=== PATIENT | male | born 1940 | race Caucasian/White ===

== ENCOUNTER 2025-04-20 19:02 | Inpatient (IN) | payer MEDICARE, OTHER, SELFPAY ==
[2025-04-20 14:51] VITALS: BMI 25.0
[2025-04-20 14:56] VITALS: BP 137/84
[2025-04-20 15:20] LABS: % Basophils 0.7 % (0-2); % Immature Granulocytes 0.4 % (0-0.5); % Lymphocytes 33.4 % (20.5-51.1); % Monocytes 9.6 % (1.7-9.3); % Neutrophils 50.9 % (42.2-75.2); Absolute Basophils 0.1 10^3/uL (0-0.2); Absolute Eosinophils 0.5 10^3/uL (0-0.7); Absolute Lymphocytes 3.6 10^3/uL (1.2-3.4); Absolute Neutrophils 5.5 10^3/uL (1.4-6.5); Hematocrit 40.9 % (39.0-52.0); Hemoglobin 13.8 g/dL (13.0-18.0); Mean Corp Hgb Conc. 33.7 g/dL (33.0-37.0); Mean Corpuscular Hgb 31.4 pg (27.0-31.0); Mean Corpuscular Volume 93.2 fL (80.0-94.0); Mean Platelet Volume 10.7 fL (7.4-10.4); Nucleated Red Blood Cells % 0 % (-); Platelet Count 263 10^3/uL (130-400); Red Blood Cell Count 4.39 10^6/uL (4.70-6.10); White Blood Cell Count 10.8 10^3/uL (4.8-10.8)
[2025-04-20 15:35] LABS: ALT (SGPT) 15 U/L (0-50); AST (SGOT) 18 U/L (17-59); Albumin 4.6 g/dl (3.5-5.0); Alkaline Phosphatase 89 U/L (38-126); Blood Urea Nitrogen 32 mg/dl (9-20); Calcium 9.8 mg/dl (8.4-10.2); Carbon Dioxide 21 mmol/L (22-30); Chloride 108 mmol/L (98-107); Glucose 91 mg/dl (70-99); Potassium 4.5 mmol/L (3.5-5.1); Sodium 137 mmol/L (135-145); Total Bilirubin 0.7 mg/dl (0.2-1.3); Total Protein 7.1 g/dl (6.3-8.2); eGFR 28.99
--- NOTE | 2025-04-20 17:32 | W.PN.UPDATE ---
Update Note
Progress Note Update
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
Plan:
-Admit to hospitalist
-Heparin gtt with bolus
-Vein mapping (ordered)
-CTA with runoff (ordered)
-Planning for bypass later this week if targets can be identified
[2025-04-20 17:52] VITALS: BP 143/106
[2025-04-20 18:00] VITALS: BP 134/103
--- NOTE | 2025-04-20 18:08 | ED.GENMED ---
History of Present Illness
General
Chief Complaint: Vascular Symptoms
Source: patient
Exam Limitations: none
Time Seen by Provider: 04/20/25 17:10
Nursing documentation reviewed up to this point in time: agreed with
History of Present Illness
History of Present Illness:
The patient is an 85 year old male who presents to the emergency department with paresthesias of his right foot. These symptoms started approximately three months ago and has remained consistently present.
He denies experiencing pain in the leg but notes the numbness becomes more noticeable after prolonged activity. He occasionally feels that his right foot feels cooler. He does not seem to notice the paresthesias as much at night or when his feet
are elevated.
He states that the sensation began after the patient was lifting his in a wheelchair up a curb, forgoing a ramp-however is unsure if this is related.
Patient was seen by Dr. Cole many years ago and had an EVAR of a known right popliteal artery aneurysm. However�he had not followed up recently as he was caring for his ill .
Patient was seen by Dr. Cole last week where he had numerous testing performed. He was referred to the emergency department today for admission given concerns of a thrombosed right popliteal artery aneurysm.
Patient denies any fevers, chills, chest pain, shortness of breath.
Review of Systems
Review of Systems
Allergies reviewed?: Yes
All Other Systems: ROS reviewed and negative except as documented in HPI and ROS
Phy Exam
Physical Exam
Physical Exam:
Vitals: Patient's vital signs are stable. Afebrile
General: Patient is well appearing, no acute distress
Skin: Warm and dry, no rashes or lesions
Head: Normocephalic, atraumatic
Eyes: Sclera nonicteric. EOMs intact. No nystagmus.
Throat: Protecting airway
Neck: Normal ROM, no cervical spine tenderness, no meningismus
Cardiac: Regular rate and rhythm, no murmurs.
Pulm: Normal respiratory effort. Lungs clear bilaterally
.
Abdomen: No abdominal tenderness.
Extremities: No cyanosis or edema of bilateral lower extremities. Palpable right femoral pulse, right DP pulse dopplerable (unable to palpate); palpable left DP and PT pulse; normal sensation in bilateral lower extremities, strength grossly intact
bilaterally
Neuro: AAOx3. Grossly intact.
Psychiatric: Normal affect.
Course
Orders/Labs/Results
Orders:
Orders
04/20/25 Dinner
Cholesterol Lowering
Cholesterol Lowering: Sodium, 2 Gram
04/20/25 15:06
CHEM 20 [Comprehensive Metabolic Panel] Urgent
Complete Blood Count/With Diff Urgent
04/20/25 18:15
Heparin 4,000 units IV NOW STA
Nursing to Place Non Medication Order As Directed
Physician Order: PTT 6 hours after initial start of Heparin infusion
04/20/25 18:39
Admit/Transfer Patient As Directed
Co-Sign Provider:
Level of Care: Inpatient admission
Assign to:: Medical/Surgical
Physician / Group: [facility]
Diagnosis: R popliteal artery thrombosis
Reason for Hospitalization: R popliteal artery aneurysm thrombosis
Expected length of stay greater than two midnights?: Yes
ELOS- Estimated Length of Stay in days: 2
I certify the patient meets the requirements for IP care: Yes
04/20/25 18:40
PRN Pain Medication Management As Directed
May give lesser potent ordered pain med per pt: Yes
preference::
Protocol:: Medication orders for pain may be administered in a
manner that supports deferring to patient preference
when the pt is:
- Requesting an ordered lesser potent pain medication.
Least to most potent pain medications are defined
as: acetaminophen < NSAID < tramadol < opioids
(morphine, oxycodone, hydromorphone).
- Requesting a lesser dose of the same medication IF
ORDERED.
- Requesting a less intrusive route of administration
if both routes are prescribed by the provider (PO <
IV).
04/20/25 18:41
Code Status As Directed
Resuscitation Status: Full Code
PTT Urgent
Comment: Obtain baseline before beginning heparin infusion if not already collected
04/20/25 18:45
0.9% Sodium Chloride 1000 ml [Nss] 1,000 ml IV 125 mls/hr
04/20/25 19:00
Heparin 25505 Units/250 ml 25,000 units in 250 ml .ROUTE .STK-MED
04/20/25 19:15
Heparin 20198 Units/250 ml 25,000 units in 250 ml IV PER PROTOCOL
Weight to be used for heparin protocol in kilograms (kg):: 70.7462367
Protocol:: Vascular Surgery
PTT Goal Range to be used:: PTT 73 to 111 seconds
Order type:: Initial
INITIAL Infusion Dose (UNITS/KG/hr) & then follow protocol:: 18 units/kg/hr
Infusion Dose in UNITS/hr & then follow protocol (UNITS/hr):: 1,300
INFUSION RATE in mL/hr & then follow protocol (mL/hr):: 13
PTT less than or equal to 64 seconds:: Notify Ordering Provider. obtain orders for rate increase &
possible bolus
PTT 64.1 to 72.9 seconds:: Increase rate by 100 units/hr (+ 1 mL/hr)
PTT 73 to 111 seconds:: Target Range. No change in rate.
PTT 111.1 to 130.9 seconds:: Decrease rate by 100 units/hr (- 1 mL/hr)
PTT 131 to 199.9 seconds:: HOLD for 1 hour. Then decrease rate by 200 units/hr (- 2 mL/hr)
PTT greater than or equal to 200 seconds:: STOP INFUSION. Notify Ordering provider to obtain further orders.
Lab follow-up:: Each change, PTT q6h until 2 consecutive are therapeutic. Then PTT
daily.
04/20/25 20:06
0.9% Sodium Chloride 1000 ml [Nss] 1,000 ml IV 125 mls/hr
Acetaminophen [Tylenol] 1,000 mg PO Q6HPRN PRN mild pain
Bisacodyl [Dulcolax] 10 mg RECTAL [id number] PRN
Docusate W/Senna [Senokot-S] 1 tablet PO BIDPRN PRN
Ondansetron Injectable [Zofran] 4 mg IV Q6HPRN PRN
Oxycodone [Roxicodone] 5 mg PO Q4HPRN PRN
Polyethylene Glycol Powder [Miralax] 17 grams PO DAILYPRN PRN
colestipol See Dose Instructions PO BID
04/20/25 20:06
Vascular Surgery Consult Routine
Consulting Provider: Hany Cole III
Was physician already notified: Yes
VTE Contraindication Routine
VTE Mechanical Device Contraindication: Medical Contraindication
Pharmocologic Contraindication: Medical Contraindication
Heparin Protocol- PTT Orders As Directed
PTT per Heparin protocol: -Obtain CBC and baseline PTT - if not already collected.
-Obtain PTT 6 hours from start of infusion. Then, every 6 hours until 2 consecutive
PTT's are therapeutic. Then, PTT Daily.
-With each rate change, obtain PTT every 6 hours until 2 consecutive PTT's are
therapeutic. Then, PTT Daily.
Activity As Directed
Activity Level: With Assistance
Medical Records Request [Obtain Records] As Directed
Dates of Information to be Released: Nov 12 2024 to April 12 2025
Type of Information Requested: Last Office Visit H&P
Lab Results
Obtain Records from: Dr. Ramon Melendez
Notify MD As Directed
Notify physician if: PTT is greater than or equal to 200.
Vascular Checks As Directed
Location: R lower extremity
Frequency: q8h
Vital Signs As Directed
Frequency: Per unit guidelines
Pulse Ox/spot Check [RESP] Routine
Quantity: 1
04/20/25 22:00
Aspirin Low Dose EC [Aspir Low (Enteric Coated)] 81 mg PO HS
04/21/25 06:00
Basic Metabolic Panel IN AM
Creatine Phosphokinase IN AM
Magnesium IN AM
US Vascular Mapping Bilateral IN AM
Comment:
Reason For Exam: requires bypass
04/21/25 08:00
Atenolol [Tenormin] 25 mg PO DAILY
Losartan [Cozaar] 50 mg PO DAILY
omega 6-alw-vgp-fish oil [Fish Oil] 1 cap PO DAILY
04/21/25 12:00
CT Abd Aorta Angio W/ Run Off Urgent
Reason For Exam: thrombosed pop artery
Pantoprazole [Protonix] 40 mg PO NOON
04/22/25 06:00
Complete Blood Count/No Diff Q2D
Comment: notify provider: Platelet count < 130,000 or decrease by 50% from baseline
04/24/25 06:00
Complete Blood Count/No Diff Q2D
Comment: notify provider: Platelet count < 130,000 or decrease by 50% from baseline
04/26/25 06:00
Complete Blood Count/No Diff Q2D
Comment: notify provider: Platelet count < 130,000 or decrease by 50% from baseline
04/28/25 06:00
Complete Blood Count/No Diff Q2D
Comment: notify provider: Platelet count < 130,000 or decrease by 50% from baseline
04/30/25 06:00
Complete Blood Count/No Diff Q2D
Comment: notify provider: Platelet count < 130,000 or decrease by 50% from baseline
05/02/25 06:00
Complete Blood Count/No Diff Q2D
Comment: notify provider: Platelet count < 130,000 or decrease by 50% from baseline
05/04/25 06:00
Complete Blood Count/No Diff Q2D
Comment: notify provider: Platelet count < 130,000 or decrease by 50% from baseline
05/06/25 06:00
Complete Blood Count/No Diff Q2D
Comment: notify provider: Platelet count < 130,000 or decrease by 50% from baseline
Abnormal Lab Results
04/20/25
15:06
RBC 4.39 L 10^6/uL
(4.70-6.10)
MCH 31.4 H pg
(27.0-31.0)
MPV 10.7 H fL
(7.4-10.4)
Absolute Lymphs (auto) 3.6 H 10^3/uL
(1.2-3.4)
Absolute Monos (auto) 1.0 H 10^3/uL
(0.1-0.6)
Monocytes % 9.6 H %
(1.7-9.3)
Chloride 108 H mmol/L
(98-107)
Carbon Dioxide 21 L mmol/L
(22-30)
BUN 32 H mg/dl
(9-20)
Creatinine 2.2 H mg/dL
(0.7-1.3)
04/20/25 15:06
04/20/25 15:06
Vital Signs
Initial and Last Documented VS:
Initial Vital Signs
Temp Pulse Resp BP Pulse Ox
98.2 F 57 16 137/84 98
04/20/25 14:56 04/20/25 14:56 04/20/25 14:56 04/20/25 14:56 04/20/25 14:56
Last Documented Vital Signs
Temp Pulse Resp BP Pulse Ox
97.8 F 47 20 146/77 96
04/20/25 23:37 04/20/25 23:37 04/20/25 23:37 04/20/25 23:37 04/20/25 23:37
MDM/Problems Addressed
Differential Diagnosis Includes:
Not limited to: Peripheral arterial disease, venous insufficiency, peripheral neuropathy, lumbar radiculopathy, etc.
MDM/Problems Addressed:
85 year-old male with history as documented notable for known PAD and R popliteal aneurysm s/p EVAR in 2022 presenting with claudication symptoms of right foot ongoing over the past few months. He describes paresthesias in his right foot worse with
activity and associated w/ mild pain. Referred from vascular surgery with concerns of thrombosed R popliteal artery aneurysm. Vitals and physical exam as above.
Patient has palpable left DP pulse and dopplerable right DP pulse (unable to palpate). Sensation intact in b/l lower extremities with normal strength.
Labs sent in triage prior to my evaluation without any clinically significant abnormalities on CBC. CMP reveals renal insufficiency with creatinine of 2.2 and GFR of 28.99. While initial plan was for CTA w/ runoff of b/l lower extremities � given
decrease in kidney function will plan to hold CTA tonight after discussion w/ vascular surgery, Dr. Cole.
Heparin initiated in ED. Patient will be admitted to hospital service with plan for hydration, repeat labs, nephro consult in the morning with hopes to pursue CTA to plan for possible bypass later this week/further management by vascular surgery.
Patient accepted to hospitalist service in stable condition.
Chronic conditions affecting care:
Right popliteal aneurysm, PAD, renal insufficiency
Acute Exacerbation and/or Progression of Chronic Illness:
Thrombosed right popliteal aneurysm, acute on chronic renal insufficiency
*Pulse Oximetry
Patient hypoxic: no
*EKG
Interpreted by ED Provider?: NA
*Clothing Consultant Interpretation
Rate: Clothing Consultant- N/A
*Critical Care Note
Total Time (30-74mins, 75-104mins- exclusive of procedures): 32
comment:
I have spent 32 minutes of critical care time, including but not limited to management of unstable vitals signs, discussion with consultants, discussion with pharmacy, etc. This time is exclusive of any spent on procedures, in evaluation and
management of this critically ill patient�s condition of limb ischemia secondary to a thrombosed right popliteal artery aneurysm. Patient started on an IV heparin drip in ED
Data Reviewed
Review of Other/Old Records Reveals: Operative Reports (EVAR from 09/11/[address] SANTOS)
Patient Management
Discussion with other providers: Hospitalist and Mirror Maker (Case discussed with vascular surgery)
Escalation/DeEscalation of care consider admission/obs:
Admit indicated
ED Attending Note
-
Portions of this chart may have been created with voice recognition software.� Occasional wrong word or��sound alike� substitutions may have occurred due to the inherent limitations of voice recognition software.
Discharge Plan
Departure
Patient Disposition: Admit
Date of Disposition: 04/20/25
Time of Disposition: 18:17
Presentation/result/management discussed w/ accepting MD/DO: Hospitalist
Discharge Problem:
Arterial obstruction due to thromboembolism from aneurysm of popliteal artery, GLORIA (acute kidney injury), PAD (peripheral artery disease)
Interventions
Interventions:
*Risk Screen - Suicide Last Done: 04/20/25 20:37
*General Assessment Last Done: 04/20/25 19:58
*Neglect/Abuse Screening Last Done: 04/20/25 14:56
*ED- Fall Risk Assessment Last Done: 04/20/25 19:58
*ED COVID-19 Vaccine History Last Done: 04/20/25 20:37
*Nursing Disposition Last Done: 04/20/25 19:58
ED- Cardiac Assessment Last Done: 04/20/25 19:39
ED- Pulmonary Assessment Last Done: 04/20/25 19:39
ED-Peripheral Vascular Assessment Last Done: 04/20/25 19:39
ED-Skin Assessment Last Done: 04/20/25 19:39
Discharge Date and Time
Discharge Date/Time: 04/20/25 20:01
--- NOTE | 2025-04-20 18:31 | HPS.HSE ---
Family Physician
-
Family Physician: Ramon Melendez
Chief Complaint
-
Claudication
History of Present Illness
This is a 85-year-old male with past medical history significant for hypertension, hyperlipidemia, AAA, history of non-Hodgkin's lymphoma and prostate cancer, peripheral artery disease status post EVAR and known popliteal aneurysm with previous
recommended repair on the right presents from vascular clinic with thrombosed right popliteal artery aneurysm.
It is thought that this happened about 2 to 3 months ago she began having symptoms in his right foot at that time. He is having critical limb ischemia symptoms in his right foot at this time. It was recommended that he be brought to the emergency
department for expedited workup and treatment.
Reports intermittent numbness/tingling. Denies pain.
In the emergency department he was afebrile, blood pressure was 137/84 with a pulse of 57 satting 98% on room air.
CBC was unremarkable with hemoglobin 15.8 and a platelet count of 263.
Electrolytes were all stable. BUN/creatinine were elevated at 32 and 2.2 respectively. Unknown recent baseline platelet. 1.3 in 2022.
Medical History
Past Medical History
Past Medical History: Reports Other
Additional Past Medical History:
Prostate cancer
Hypertension
Hyperlipidemia
AAA
Non-Hodgkin's lymphoma
Past Surgical History: Reports Other
Additional Past Surgical History:
Splenectomy
Vasectomy
Herniorrhaphy
EVAR
HRS, aorta surgery
Biopsy of AAA
Social History
Tobacco: Non-smoker
Alcohol: Former
Drug: None
Personal:
Living: With Family
Employment: Retired
Family History
Family History: Not pertinent
Allergies / Home Medications
Allergies reflects when Allergies were last updated in [facility].
Home Medications with original date entered in [employer]
Allergy/Medication List:
Allergies
Allergy/AdvReac Type Severity Reaction Status Date / Time
No Known Allergies Allergy Verified 04/20/25 14:58
Home Medications
colestipol 1 gram tablet 1 g PO BID High Cholesterol 07/03/23
losartan 50 mg tablet 50 mg PO DAILY Blood Pressure 07/03/23
omeprazole 20 mg tablet,delayed release 20 mg PO NOON Gastrointestinal Issue 07/03/23
zinc-magnesium aspart-vit B6 10 mg-150 mg-3.83 mg capsule 1 cap PO DAILY Supplement 07/03/23
omega 1-qcq-zta-fish oil 1,200 mg (144 mg-216 mg) capsule (Fish Oil) 1 cap PO DAILY Supplement ##0 09/06/23
acetaminophen 500 mg tablet 1,000 mg PO Q6HPRN PRN mild pain 09/11/23
aspirin 81 mg tablet,delayed release 81 mg PO HS 04/20/25
atenolol 25 mg tablet 25 mg PO DAILY 04/20/25
Review of Systems
-
Constitutional: Reports No Symptoms
EENT: Reports No Symptoms
Respiratory: Reports No Symptoms
Cardiac: Reports No Symptoms
Abdomen/GI: Reports No Symptoms
: Reports No Symptoms
Musculoskeletal: Reports No Symptoms
Skin: Reports No Symptoms
Neurological: Reports No Symptoms
Endocrine: Reports No Symptoms
Hematologic/Lymphatic: Reports No Symptoms
Psych: Reports No Symptoms
Physical Exam
Vital Signs
Vital Signs
Temp Pulse Resp BP Pulse Ox
98.2 F 57 16 137/84 98
04/20/25 14:56 04/20/25 14:56 04/20/25 14:56 04/20/25 14:56 04/20/25 14:56
Physical Exam
General: No Apparent Distress
HEENT: NormoCephalic, Moist mucous membranes and Atraumatic
Respiratory: Clear
Cardiac: S1/S2 and Regular Rhythm; No Murmur or Rub
GI: Soft, Non Tender, Non Distended and Normal Bowel Sounds; No Organomegaly
Rectal: Deferred by Provider
Genito-urinary: Deferred by me
Musculoskeletal: No Clubbing, No Cyanosis, No Edema and Other (palpable thrombosed popliteal aneurysm on the right, foot with nonpalpable pedal pulses but dopplable.)
Skin: No Rash
Neuro: Nonfocal/grossly intact
Laboratory Results
-
04/20/25 15:06
04/20/25 15:06
Laboratory Results
Total Bilirubin 0.7 mg/dl (0.2-1.3) 04/20/25 15:06
AST 18 U/L (17-59) 04/20/25 15:06
ALT 15 U/L (0-50) 04/20/25 15:06
Alkaline Phosphatase 89 U/L (38-126) 04/20/25 15:06
Data Reviewed
-
Lab Data: Labs Reviewed by me
Old Records: Reviewed
Impression/Plan
-
IMPRESSION:
85-year-old with history of peripheral arterial disease, AAA s/p repair history of popliteal aneurysm who comes in with thrombosed right popliteal aneurysm with distal ischemia. Denies pain, reports intermittent numbness tingling. He has a mild
elevation in creatinine to 2.2 unknown recent baseline but prior baseline was around 1.3. Plan is to admit, optimize renal function, obtain a CT angio after optimization of renal function and follow-up treatment plan vascular surgery.
PLAN:
Thrombosed popliteal artery
-Admit to MedSurg
-Initiate heparin drip
-continue aspirin 81
-regular diet till midnght, clear liquids afterwards and NPO [address] scan (tentatively tomorrow noon)
-IV fluids
-Vascular consult
Renal dysfunction -GLORIA/CKD. Hx of CKD, reportedly had been followed by Renal in the past but maintained GFR of around 50 ml/min. Now 30.
- Obtain recent BUN/creatinine labs for Dr. Melendez
- -IV normal saline at 100 cc/h
- do not hold losartan
- Avoid NSAIDS
- do not give contrast until DOMINIC PPX complete and nephrology consultation; at least NS at 1ml/kg for 12 hours prior to procedure and continue for 6- 12 hours after procedure
- nephrology consult
DVT prophylaxis�on heparin gtt
CODE STATUS�full code
[2025-04-20 18:59] LABS: APTT 25.2 Sec (23.4-35.0)
[2025-04-20 19:00] VITALS: BP 139/95
[2025-04-20] MEDS: HEPARIN 4000 UNITS IV (19:05)
[2025-04-20] MEDS: HEPARIN 25000 UNITS/250 ML IV (19:06)
[2025-04-20] MEDS: NSS 1000 IV ×2 (19:12→20:28)
[2025-04-20 20:20] VITALS: BP 118/96; BMI 25.0
--- NOTE | 2025-04-20 20:30 | PTCARENOTE ---
Patient arrived from ED via stretcher, patient ambulatory to bed. Patient aaox3, able to make needs known.
[2025-04-20] MEDS: ASPIR LOW (ENTERIC COATED) 81 MG PO (21:14)
[2025-04-20 23:37] VITALS: BP 146/77
[2025-04-21 02:37] LABS: APTT > 200 Sec (23.4-35.0)
[2025-04-21 07:44] VITALS: BP 182/90
[2025-04-21] MEDS: COZAAR 50 MG PO (08:01)
[2025-04-21] MEDS: TENORMIN 25 MG PO (08:01)
[2025-04-21 08:08] LABS: Blood Urea Nitrogen 32 mg/dl (9-20); Calcium 9.4 mg/dl (8.4-10.2); Carbon Dioxide 20 mmol/L (22-30); Chloride 112 mmol/L (98-107); Creatine Phosphokinase 146 U/L (55-170); Estimated Creatinine Clearance 27 ml/min; Glucose 87 mg/dl (70-99); Magnesium 2.1 mg/dl (1.6-2.3); Potassium 4.5 mmol/L (3.5-5.1); Sodium 139 mmol/L (135-145); eGFR 34.57
[2025-04-21 11:19] VITALS: BP 122/77
--- NOTE | 2025-04-21 11:27 | W.PN.UPDATE ---
Update Note
Progress Note Update
Patient with scant improvement in creatinine from 2.2 yesterday to 1.9 this a.m., will hold off additional day from obtaining CT angio aorta with runoff, plan to obtain imaging tomorrow (04/22/2025) as long as creatinine continues to either improve
or stabilize. Earliest plan for surgical intervention for revascularization would be Sunday (04/24/25), cannot determine official surgical plan without CT imaging. Updated patient at bedside with plan for CT scan tomorrow with possible surgical
intervention on Sunday, patient verbalized understanding.
[2025-04-21 11:37] LABS: APTT 139.7 Sec (23.4-35.0)
[2025-04-21] MEDS: PROTONIX 40 MG PO (12:54)
[2025-04-21] MEDS: LR 1000 IV ×2 (12:55→22:45)
--- NOTE | 2025-04-21 15:13 | CM ---
Patient seen bedside w/ grandson and another family member. Initial assessment completed. Patient is a 85-year-old male with past medical history significant for hypertension, hyperlipidemia, AAA, history of non-Hodgkin's lymphoma and prostate
cancer, peripheral artery disease status post EVAR and known popliteal aneurysm. Presenting for claudication.
Patient resides w/ daughter and grandson in a 2STH, 1 step to enter. Patient is independent w/ ambulation and ADLs. Grab bar in the bathroom. Denies SNF/HC hx.
Address, point of contact and insurance verified
PCP: Ramon Melendez
Pharmacy: [facility]. Patient uses [facility] for mail orders
Plan: Anticipate home no needs
--- NOTE | 2025-04-21 15:26 | W.PN.HOSP.TC ---
Today's Communication/Plan
-
Continue heparin GTT
Continue IV fluids
CT angiogram tomorrow.
Assessment / Plan
Assessment / Plan
Impression
85-year-old male admitted for management of thrombosed right popliteal artery.
Plan
#Peripheral arterial disease
Thrombosed right popliteal artery
Continue heparin drip
Continue aspirin
N.p.o. [address] scan
Hold off additional day for CT imaging for his renal function to stabilize.
Vascular surgery on board
Possible surgical intervention on fter CT imaging
#GLORIA on CKD�stage IIIa
Continue IV fluids
Hold losartan
Monitor BMP
#Hypertension
Continue atenolol
Hold losartan
#DVT prophylaxis�heparin GTT
Regular diet
Full code
Anticipated Discharge: > 48 hours
Subjective/Interval History
-
Date of Service: April 21, 2025
Patient reports having tingling and numbness in the right lower extremity.
Objective Data
-
Labs:
Laboratory Results
04/21/25 04/21/25 04/21/25
07:21 10:57 18:30
APTT 139.7 H Pending
Sodium 139
Potassium 4.5
Chloride 112 H
Carbon Dioxide 20 L
BUN 32 H
Creatinine 1.9 H
Glucose 87
Calcium 9.4
Vital Signs:
Vital Signs
Temp Pulse Resp BP Pulse Ox
98.2 F 53 18 122/77 98
04/21/25 11:19 04/21/25 11:19 04/21/25 11:19 04/21/25 11:19 04/21/25 11:19
I&O
04/20/25 04/21/25 04/22/25
06:59 06:59 06:59
Output Total 775 / 775
Balance -775 / -775
Physical Exam
-
General: Well Developed and Well Nourished
HEENT: Normocephalic and Atraumatic
Respiratory: Clear to Auscultation
Cardiac: Regular Rhythm, S1/S2 and Other (Nonpalpable right dorsalis pedis pulse, feeble on portable Doppler)
GI: Soft, Nontender, Nondistended and Normal Bowel Sounds
Skin: Warm and Dry
Neuro: Awake, Alert, Oriented, AO x 3 and Nonfocal/Grossly Intact
Psych: Calm
[2025-04-21 15:34] VITALS: BP 140/80
[2025-04-21 19:07] LABS: APTT 82.3 Sec (23.4-35.0)
[2025-04-21] MEDS: HEPARIN 25000 UNITS/250 ML IV (19:43)
[2025-04-21] MEDS: ASPIR LOW (ENTERIC COATED) 81 MG PO (21:29)
[2025-04-21 23:23] VITALS: BP 163/82
[2025-04-22 02:34] LABS: APTT 90.3 Sec (23.4-35.0)
[2025-04-22 07:19] LABS: Hematocrit 38.1 % (39.0-52.0); Hemoglobin 13.4 g/dL (13.0-18.0); Mean Corp Hgb Conc. 35.2 g/dL (33.0-37.0); Mean Corpuscular Hgb 32.4 pg (27.0-31.0); Mean Corpuscular Volume 92.3 fL (80.0-94.0); Mean Platelet Volume 11.7 fL (7.4-10.4); Platelet Count 257 10^3/uL (130-400); Red Blood Cell Count 4.13 10^6/uL (4.70-6.10); Red Cell Dist. Width 14.1 % (11.5-14.5); White Blood Cell Count 7.7 10^3/uL (4.8-10.8)
[2025-04-22 07:46] VITALS: BP 128/83
[2025-04-22 08:01] LABS: ALT (SGPT) 13 U/L (0-50); AST (SGOT) 17 U/L (17-59); Albumin 3.8 g/dl (3.5-5.0); Alkaline Phosphatase 80 U/L (38-126); Blood Urea Nitrogen 31 mg/dl (9-20); Calcium 9.7 mg/dl (8.4-10.2); Carbon Dioxide 19 mmol/L (22-30); Chloride 111 mmol/L (98-107); Estimated Creatinine Clearance 25 ml/min; Glucose 84 mg/dl (70-99); Potassium 4.3 mmol/L (3.5-5.1); Sodium 137 mmol/L (135-145); Total Bilirubin 0.6 mg/dl (0.2-1.3); Total Protein 6.1 g/dl (6.3-8.2); eGFR 32.51
[2025-04-22] MEDS: LR IV (08:54)
[2025-04-22] MEDS: NSS 500 IV ×2 (08:54→11:28)
[2025-04-22] MEDS: TENORMIN 25 MG PO (08:55)
--- NOTE | 2025-04-22 10:58 | CM ---
Patient seen at bedside on . Patient stated that his had on March 23 and was tearful. Patient open to [employer] visits and CM requested visit. Patient states that he is for surgery on Sunday. CM will continue to follow for
discharge planning needs.
Plan; pending assessments/medical treatment plan.
[2025-04-22] MEDS: PROTONIX 40 MG PO (11:29)
--- NOTE | 2025-04-22 13:01 | W.PN.HOSP.TC ---
Today's Communication/Plan
-
Continue IV fluids
Assessment / Plan
Assessment / Plan
Impression
85-year-old male admitted for management of thrombosed right popliteal artery.
Plan
#Peripheral arterial disease
Thrombosed right popliteal artery
Continue heparin drip
Continue aspirin
CT angio�
1. 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 There is occlusion of the right distal SFA and popliteal artery, including thrombosed aneurysm of the right popliteal artery. Occlusion of the proximal right anterior tibial artery,
tibioperoneal trunk, and proximal posterior tibial and peroneal arteries. Reconstitution of the right proximal anterior tibial, posterior tibial, and peroneal arteries, although the distal aspect below the mid calf level is not well evaluated due to
contrast bolus timing.
2. 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 Left popliteal aneurysm does not appear to be occluded, however evaluation is slightly suboptimal due to contrast bolus timing.
3. 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
4. 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
5. Mild coronary arterial calcification. Please correlate with symptoms of and risk factors for coronary artery disease, with further workup as clinically appropriate.
6. Cholelithiasis.
Vascular surgery on board
Possible surgical intervention on fter CT imaging
#GLORIA on CKD�stage IIIa
Creatinine�2.[address] angio today�hydration protocol
Continue IV fluid
Hold losartan
Monitor BMP
#Hypertension
Continue atenolol
Hold losartan
#DVT prophylaxis�heparin GTT
Regular diet
Full code
Anticipated Discharge: > 48 hours
Subjective/Interval History
-
Date of Service: April 22, 2025
No acute overnight events.
Objective Data
-
Labs:
Laboratory Results
04/22/25 04/22/25 04/22/25
02:14 06:26 08:00
WBC 7.7
Hgb 13.4
Hct 38.1 L
Plt Count 257
APTT 90.3 H Cancelled
Sodium 137
Potassium 4.3
Chloride 111 H
Carbon Dioxide 19 L
BUN 31 H
Creatinine 2.0 H
Glucose 84
Calcium 9.7
Total Bilirubin 0.6
AST 17
ALT 13
Alkaline Phosphatase 80
Vital Signs:
Vital Signs
Temp Pulse Resp BP Pulse Ox
97.5 F 53 18 128/83 97
04/22/25 07:46 04/22/25 07:46 04/22/25 07:46 04/22/25 07:46 04/22/25 07:46
I&O
04/21/25 04/22/25 04/23/25
06:59 06:59 06:59
Intake Total 2280 / 2280
Output Total 775 / 775 975 / 975
Balance -775 / -775 1305 / 1305
Physical Exam
-
General: No Apparent Distress
HEENT: Normocephalic and Atraumatic
Respiratory: Clear to Auscultation
Cardiac: Regular Rhythm, S1/S2 and Other (Nonpalpable right dorsalis pedis pulse)
GI: Soft, Nontender, Nondistended and Normal Bowel Sounds
Skin: Dry
Neuro: Awake, Alert, Oriented and AO x 3
Psych: Calm
[2025-04-22 15:29] VITALS: BP 141/88
[2025-04-22] MEDS: ASPIR LOW (ENTERIC COATED) 81 MG PO (21:44)
[2025-04-22 23:00] VITALS: BP 108/69
[2025-04-23] MEDS: HEPARIN 25000 UNITS/250 ML IV (00:07)
[2025-04-23 07:26] LABS: Hematocrit 37.8 % (39.0-52.0); Hemoglobin 13.1 g/dL (13.0-18.0); Mean Corp Hgb Conc. 34.7 g/dL (33.0-37.0); Mean Corpuscular Volume 92.2 fL (80.0-94.0); Mean Platelet Volume 11.9 fL (7.4-10.4); Platelet Count 252 10^3/uL (130-400); Red Cell Dist. Width 14.2 % (11.5-14.5); White Blood Cell Count 7.5 10^3/uL (4.8-10.8)
--- NOTE | 2025-04-23 07:41 | W.PN.HOSP.TC ---
Documented by User: Paige Payne MD, Resident 04/23/25 10:36
Today's Communication/Plan
-
Continue IV fluids
Continue heparin drip
Assessment / Plan
Assessment / Plan
Impression
85-year-old male admitted for management of thrombosed right popliteal artery.
Plan
#Peripheral arterial disease
#Thrombosed right popliteal artery
Continue heparin drip
Continue aspirin
CT angio�
1. 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 There is occlusion of the right distal SFA and popliteal artery, including thrombosed aneurysm of the right popliteal artery. Occlusion of the proximal right anterior tibial artery,
tibioperoneal trunk, and proximal posterior tibial and peroneal arteries. Reconstitution of the right proximal anterior tibial, posterior tibial, and peroneal arteries, although the distal aspect below the mid calf level is not well evaluated due to
contrast bolus timing.
2. 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 Left popliteal aneurysm does not appear to be occluded, however evaluation is slightly suboptimal due to contrast bolus timing.
3. 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
4. 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
5. Mild coronary arterial calcification. Please correlate with symptoms of and risk factors for coronary artery disease, with further workup as clinically appropriate.
6. Cholelithiasis.
Vascular surgery on board
Plan for femoral to anterior tibial bypass tomorrow
# CKD
Creatinine�2.[address] evidence of high-grade stenosis of right renal artery might be a contributing factor
Continue IV fluids
Hold losartan
Monitor BMP
#Hypertension
Continue atenolol
Hold losartan
#DVT prophylaxis�heparin GTT
Regular diet, n.p.o. from midnight.
Full code
Anticipated Discharge: > 48 hours
Subjective/Interval History
-
Date of Service: April 23, 2025
Objective Data
-
Labs:
Laboratory Results
04/23/25 04/23/25
06:22 06:23
WBC 7.5
Hgb 13.1
Hct 37.8 L
Plt Count 252
APTT Pending
Sodium Pending
Potassium Pending
Chloride Pending
Carbon Dioxide Pending
BUN Pending
Creatinine Pending
Glucose Pending
Calcium Pending
Total Bilirubin Pending
AST Pending
ALT Pending
Alkaline Phosphatase Pending
Vital Signs:
Vital Signs
Temp Pulse Resp BP Pulse Ox
97.7 F 55 14 108/69 97
04/22/25 23:00 04/22/25 23:00 04/22/25 23:00 04/22/25 23:00 04/22/25 23:00
I&O
04/22/25 04/23/25 04/24/25
06:59 06:59 06:59
Intake Total 2280 / 2280 1580 / 1580
Output Total 975 / 975 2450 / 2450
Balance 1305 / 1305 -870 / -870
Physical Exam
-
General: Well Developed and Well Nourished
HEENT: Normocephalic, Atraumatic and Other (Lipoma in the left supraclavicular region)
Respiratory: Clear to Auscultation
Cardiac: Regular Rhythm, S1/S2 and Other (No palpable pulse of the right dorsalis pedis)
GI: Soft, Nontender, Nondistended and Normal Bowel Sounds
Musculoskeletal: Other
Skin: Warm and Dry
Neuro: Awake, Alert, Oriented and AO x 3
Psych: Calm

Documented by User: Da Pagan DO 04/23/25 12:25
Subjective/Interval History
-
Date of Service: April 23, 2025
No acute events
[2025-04-23] MEDS: TENORMIN 25 MG PO (07:56)
[2025-04-23 08:08] LABS: ALT (SGPT) 13 U/L (0-50); AST (SGOT) 18 U/L (17-59); Albumin 3.9 g/dl (3.5-5.0); Alkaline Phosphatase 81 U/L (38-126); Blood Urea Nitrogen 28 mg/dl (9-20); Calcium 9.7 mg/dl (8.4-10.2); Carbon Dioxide 20 mmol/L (22-30); Chloride 109 mmol/L (98-107); Estimated Creatinine Clearance 24 ml/min; Glucose 82 mg/dl (70-99); Potassium 4.4 mmol/L (3.5-5.1); Sodium 136 mmol/L (135-145); Total Bilirubin 0.6 mg/dl (0.2-1.3); Total Protein 6.1 g/dl (6.3-8.2); eGFR 30.66
[2025-04-23 08:08] LABS: APTT > 200 Sec (23.4-35.0)
[2025-04-23 08:41] VITALS: BP 128/80
[2025-04-23] MEDS: PROTONIX 40 MG PO (11:26)
[2025-04-23 14:55] LABS: APTT 174 Sec (23.4-35.0)
[2025-04-23 15:40] VITALS: BP 118/66
[2025-04-23 19:00] LABS: APTT 77.5 Sec (23.4-35.0)
[2025-04-23] MEDS: ASPIR LOW (ENTERIC COATED) 81 MG PO (21:31)
[2025-04-23 23:20] VITALS: BP 121/75
[2025-04-24] VITALS (18 sets, daily range): BP systolic 5–147; BP diastolic 62–94; BMI 25.3
[2025-04-24 01:47] LABS: APTT 98.1 Sec (23.4-35.0)
[2025-04-24] MEDS: HEPARIN 25000 UNITS/250 ML IV ×2 (02:10→16:38)
[2025-04-24] MEDS: TENORMIN 25 MG PO (07:42)
--- NOTE | 2025-04-24 08:17 | W.PN.HOSP.TC ---
Today's Communication/Plan
-
.
Assessment / Plan
Assessment / Plan
Impression
85-year-old male admitted for management of thrombosed right popliteal artery.
Plan
#Peripheral arterial disease
#Thrombosed right popliteal artery
POD #0 , s/p femoral to anterior tibial bypass
Continue heparin drip
Continue aspirin
Monitor drain output
Monitor fever curve, WBC
Vascular surgery on board, appreciate recs
CT angio�
1. 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 There is occlusion of the right distal SFA and popliteal artery, including thrombosed aneurysm of the right popliteal artery. Occlusion of the proximal right anterior tibial artery,
tibioperoneal trunk, and proximal posterior tibial and peroneal arteries. Reconstitution of the right proximal anterior tibial, posterior tibial, and peroneal arteries, although the distal aspect below the mid calf level is not well evaluated due to
contrast bolus timing.
2. 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 Left popliteal aneurysm does not appear to be occluded, however evaluation is slightly suboptimal due to contrast bolus timing.
3. 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
4. 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
5. Mild coronary arterial calcification. Please correlate with symptoms of and risk factors for coronary artery disease, with further workup as clinically appropriate.
6. Cholelithiasis.
# CKD
Creatinine�2.[address] evidence of high-grade stenosis of right renal artery might be a contributing factor
Continue IV fluids
Hold losartan
Monitor BMP
#Hypertension
Continue atenolol
Hold losartan
#DVT prophylaxis�heparin GTT
Regular diet
Full code
Anticipated Discharge: 24 - 48 hours
Subjective/Interval History
-
Date of Service: April 24, 2025
Saw the patient in PACU. Waking up from anesthesia. Limited history.
Objective Data
-
Labs:
Laboratory Results
04/24/25 04/24/25
01:13 08:06
WBC Pending
Hgb Pending
Hct Pending
Plt Count Pending
APTT 98.1 H Pending
Sodium Pending
Potassium Pending
Chloride Pending
Carbon Dioxide Pending
BUN Pending
Creatinine Pending
Glucose Pending
Calcium Pending
Total Bilirubin Pending
AST Pending
ALT Pending
Alkaline Phosphatase Pending
Vital Signs:
Vital Signs
Temp Pulse Resp BP Pulse Ox
98.4 F 51 16 139/80 96
04/24/25 07:00 04/24/25 07:00 04/24/25 07:00 04/24/25 07:00 04/24/25 07:00
I&O
04/23/25 04/24/25 04/25/25
06:59 06:59 06:59
Intake Total 1580 / 1580
Output Total 2450 / 2450 1350 / 1350
Balance -870 / -870 -1350 / -1350
Physical Exam
-
General: No Apparent Distress
HEENT: Normocephalic and Atraumatic
Respiratory: Rales
Cardiac: Regular Rhythm and S1/S2
Musculoskeletal: Other (Right lower extremity, postsurgical dressings intact, MYRON drain with serosanguineous fluid)
Skin: Warm and Dry
Neuro: Awake
[2025-04-24 08:39] LABS: Hematocrit 39.2 % (39.0-52.0); Hemoglobin 13.7 g/dL (13.0-18.0); Mean Corp Hgb Conc. 34.9 g/dL (33.0-37.0); Mean Corpuscular Hgb 32.1 pg (27.0-31.0); Mean Corpuscular Volume 91.8 fL (80.0-94.0); Mean Platelet Volume 11.5 fL (7.4-10.4); Platelet Count 271 10^3/uL (130-400); Red Blood Cell Count 4.27 10^6/uL (4.70-6.10); Red Cell Dist. Width 14.3 % (11.5-14.5); White Blood Cell Count 8.2 10^3/uL (4.8-10.8)
[2025-04-24 08:50] LABS: APTT 115.2 Sec (23.4-35.0)
[2025-04-24] MEDS: BACTROBAN 2% OINTMENT 1 APPLIC NASAL (09:20)
[2025-04-24] MEDS: PERIDEX 0.12% ORAL RINSE 15 ML PO (09:21)
[2025-04-24 09:40] LABS: ALT (SGPT) 19 U/L (0-50); AST (SGOT) 24 U/L (17-59); Albumin 4.3 g/dl (3.5-5.0); Alkaline Phosphatase 84 U/L (38-126); Blood Urea Nitrogen 32 mg/dl (9-20); Calcium 10.1 mg/dl (8.4-10.2); Carbon Dioxide 16 mmol/L (22-30); Chloride 109 mmol/L (98-107); Estimated Creatinine Clearance 22 ml/min; Glucose 94 mg/dl (70-99); Potassium 4.6 mmol/L (3.5-5.1); Sodium 135 mmol/L (135-145); Total Bilirubin 0.6 mg/dl (0.2-1.3); Total Protein 6.8 g/dl (6.3-8.2); eGFR 27.49
--- NOTE | 2025-04-24 09:42 | W.SUR.PREOP ---
Pre-Operative Surgical Note
-
I have examined this patient prior to the performance of the scheduled procedure.
The patient's condition is unchanged from the time of the current History and
Physical and the patient is able to undergo the scheduled procedure.
He has limb threatening ischemia related to a thrombosed popliteal artery aneurysm. Planning for revascularization with bypass and exclusion today. The technical aspects of this procedure were discussed with him in detail. The benefits and
rationale for this approach were discussed with him in detail. Operative risks were discussed with him in detail including but not limited to bleeding, heart attack, stroke, nerve injury, wound infection, ongoing limb ischemia, distal embolization,
bypass failure and the need for additional procedures. He expressed clear understanding of our conversation and agrees to proceed with surgery as detailed above.
[2025-04-24 12:13] LABS: ACT-LR - POC 295 Seconds (116-155)
[2025-04-24 13:20] LABS: ACT-LR - POC 252 Seconds (116-155)
--- NOTE | 2025-04-24 13:36 | CM ---
Chart reviewed. Patient for revascularization with bypass and exclusion today.
CM will cont to follow for d/c needs
--- NOTE | 2025-04-24 16:11 | OR.RPT ---
Operative Report
Operative Report
Date of Operation: 04/24/2025
Pre Op Diagnosis:
1. Thrombosed right popliteal artery aneurysm
2. Limb threatening ischemia right lower extremity
Post Op Diagnosis:
1. Thrombosed right popliteal artery aneurysm
2. Limb threatening ischemia right lower extremity
Procedure:
1. Right superficial femoral artery to anterior tibial artery bypass using ipsilateral nonreversed great saphenous vein. Exclusion of popliteal artery aneurysm
2. Completion arteriogram, right lower extremity
3. Balloon angioplasty of right dorsalis pedis artery (2.5 mm x 60 mm angioplasty balloon)
4. Balloon angioplasty of right anterior tibial artery (3 mm x 150 mm angioplasty balloon)
Surgeon: Hany Cole III, MD
Screen Printer Helper: Antonio Chu MD, PGY5
Anesthesia: General
Complications: None
Estimated Blood Loss: 150 cc
History and Indications for Procedure: 85-year-old male with known history of popliteal artery aneurysm. Presented with a thrombosed popliteal artery aneurysm and limb threatening ischemia. He was brought to the operating room for open
revascularization and exclusion of the bypass.
Procedure in Detail: Terell Zhang was correctly identified and placed supine on the operating table. After adequate induction of anesthesia the right greater saphenous vein was imaged with ultrasound and marked. The abdomen, pelvis, right groin and
right lower extremity circumferentially were then positioned, prepped and draped in the usual sterile fashion. Preoperative antibiotics were administered. A timeout procedure was performed with the nursing and anesthesia staff confirming the
patients identity as well as the nature and laterality of the procedure.
An incision was made from the groin to the knee over the great greater saphenous vein alex. The vein was harvested along this entire course. All branches were ligated and divided between ties and clips. The vein appeared to be of adequate caliber
and quality to be used as a bypass conduit. The right superficial femoral artery was then sharply dissected out and exposed through the same incision in the mid thigh. Proximal and distal control was obtained with vessel loops.
The right anterior tibial artery was chosen as the distal target and was sharply exposed through proximal capellan incision. Proximal and distal control was obtained with vessel loops.
A tunnel was then created between the distal target exposure and the superficial femoral artery coursing anterolaterally over the distal thigh. The distal end of the vein was ligated with a tie. The distal end of the vein was transected and then the
vein was dilated with heparinized saline. All branch points were closely inspected. The vein was marked for proper orientation. A clamp was placed at the sapheno-femoral junction and the proximal end of the vein was transected. The SFJ stump was
ligated with a silk suture ligature.
The patient was systemically heparinized. The proximal and distal vessel loops on the femoral vessels were secured. An arteriotomy was made in the superficial femoral artery and extended proximally and distally with Mendoza scissors. The vein was
brought to the field and oriented in a nonreversed fashion. The proximal end of the vein was spatulated and an end-to-side anastomosis was created with a running 5-0 Prolene suture. The anastomosis was completed and the vessel loops were released.
A self-expanding LeMaitre valvulotome was then passed through the distal end of the vein graft towards the proximal anastomosis. The valvulotome was deployed in the proximal vein graft, away from the proximal anastomosis. The valvulotome was
retracted slowly through the vein graft to lyse the valves. 2 passes were performed. Following this there was excellent pulsatile bleeding from the distal end of the vein conduit. The proximal suture line was inspected for hemostasis and was
achieved. A bulldog clamp was placed on the proximal end of the vein just off of the anastomosis.
While pressurized the vein was then brought through the tunnel using the tunneling device. The anterior tibial artery proximal and distal vessel loops were secured. The vein was temporarily pressurized and shortened appropriately. An arteriotomy
was made in the anterior tibial artery with an ophthalmic blade and extended proximally and distally with Mendoza scissors. The proximal and distal artery was flushed with heparinized saline. There was brisk backbleeding coming from the distal
anterior tibial artery. The end of the vein conduit was spatulated and an end-to-side anastomosis created with a running 7-0 Prolene. Prior to the completion of the anastomosis the proximal bulldog clamp was temporarily released and the vein
flushed. The area under the anastomosis was irrigated with heparinized saline and the anastomosis completed. The proximal bulldog and then the vessel loops on the anterior tibial artery were released. Immediately there was a pulse in the vein
conduit and the distal anterior tibial artery beyond the distal anastomosis. The suture lines were both inspected and hemostasis achieved. 2, 0 silk ties were used to ligate the distal SFA, distal to the proximal anastomosis to exclude the popliteal
aneurysm from pressurized flow
A completion arteriogram was performed. The proximal and distal anastomoses were widely patent. There was very sluggish flow through the bypass. The outflow through the anterior tibial artery was patent to the mid calf but then occluded thereafter.
Retrograde flow was seen in the proximal anterior tibial artery but there was no reflux of contrast beyond the AT origin. Branches from the distal anterior tibial appeared to reconstitute the peroneal artery at the ankle.
In an effort to address the anterior tibial artery outflow I then placed a 5 [place] Helenian sheath in the proximal darnell graft facing antegrade towards the foot. Under roadmap guidance using a Glidewire and quick cross catheter I navigated across the distal
anastomosis and into the mid anterior tibial artery. I was able to cross the anterior tibial artery occlusion using the quick cross and Glidewire. I navigated the wire through the dorsalis pedis artery and into the foot. Additional arteriogram
demonstrated irregular stenosis in the proximal dorsalis pedis artery with a filling defect in the DP more distally, consistent with a distal embolization, likely from his thrombosed popliteal artery aneurysm. I could not navigate successfully
through the filling defect in the dorsalis pedis artery however there was patent branch flow from the anterior tibial and more proximal dorsalis pedis artery that supplied the foot. I exchanged out for a 0.014 wire. I treated the dorsalis pedis
artery stenosis with a 2.5 mm x 60 mm angioplasty balloon. The balloon was positioned in the desired location under roadmap guidance, inflated to nominal pressure and held in place for a 4-minute inflation. I treated the anterior tibial artery
occlusion with a 3 mm x 150 mm angioplasty balloon. This balloon was positioned in the desired location under roadmap guidance, inflated to nominal pressure and held in place for a 4-minute inflation. 2 separate inflations were performed across
the anterior tibial artery occlusion. The balloon was then deflated and removed over the wire. Subsequent arteriogram demonstrated significant improvement with a patent anterior tibial artery and dorsalis pedis artery and improved flow through the
bypass and outflow compared to pretreatment. Satisfied with this result I then concluded the procedure. The wire and 5 St Helenian sheath were removed from the proximal vein graft. The puncture site was repaired with a single 6-0 Prolene suture.
Hemostasis was achieved.
Hemostasis was achieved in the wound beds. The wounds were irrigated with warm saline solution. A #10 MYRON drain was left in the subcutaneous tissue of the right thigh great saphenous vein harvest site. The wounds were closed in layers. Sterile
dressings were applied. I did not reverse the heparin.
The patient tolerated the procedure well and was taken to the PACU in stable condition.
At the conclusion of the case the patient had an easily palpable graft pulse in the subcutaneous tissue of the thigh. The patient had a palpable dorsalis pedis pulse and a robust pulsatile Doppler signal over the dorsalis pedis artery in the right
foot. The patient's foot was pink and brisk capillary refill was identified.
Attestation: I was present and responsible for the entire procedure
Signed:
Hany Cole III, MD
Vascular Surgery
[facility]
[2025-04-24 16:13] LABS: Hematocrit 34.5 % (39.0-52.0); Mean Corp Hgb Conc. 34.8 g/dL (33.0-37.0); Mean Corpuscular Hgb 32.3 pg (27.0-31.0); Mean Platelet Volume 11.2 fL (7.4-10.4); Platelet Count 236 10^3/uL (130-400); Red Blood Cell Count 3.71 10^6/uL (4.70-6.10); Red Cell Dist. Width 14.5 % (11.5-14.5); White Blood Cell Count 13.6 10^3/uL (4.8-10.8)
[2025-04-24 16:24] LABS: PT 15.5 Sec (11.4-14.6)
[2025-04-24 16:29] LABS: Blood Urea Nitrogen 28 mg/dl (9-20); Calcium 8.3 mg/dl (8.4-10.2); Carbon Dioxide 18 mmol/L (22-30); Chloride 108 mmol/L (98-107); Estimated Creatinine Clearance 25 ml/min; Glucose 148 mg/dl (70-99); Potassium 4.2 mmol/L (3.5-5.1); Sodium 134 mmol/L (135-145); eGFR 32.51
[2025-04-24 16:46] LABS: APTT > 200 Sec (23.4-35.0)
[2025-04-24] MEDS: NSS 500 IV (16:49)
[2025-04-24] MEDS: NSS 1000 IV (17:41)
[2025-04-24] MEDS: PROTONIX PO (17:42)
--- NOTE | 2025-04-24 18:22 | PTCARENOTE ---
pt received from pacu at 1730- pt drowsy, aox3, nsr on monitor with pvcs, able to make needs known. on 4LNC sats 90s. pt denies pain or any complaints at this time. ns @80 infusing and heparin at 500units/hr per order. all ivs intact and flush. left
radial deepthi zeroed and functioning. right thigh with aquacel and laura drain- drain with bloody drainage noted. right calf aquacels with bloody drainage unchanged from pacu- verified at bedside with management internship. palpable right DP pulse, doppler pt pulse,
right leg warm to touch, good sensation and movement. pt lungs clear, s1s2, hypoactive bowel sounds. luna draining yellow urine. pts daughter and granddaughter at bedside- all educated about plan of care, verbalized understanding. all safety
precautions in place, bed alarm on and functioning, call walker within reach.
--- NOTE | 2025-04-24 22:25 | PTCARENOTE ---
Top two aquacell dressings leaking blood on bed. MYRON put out 100ml sanguinous output from 7p-1025pm. Dr Santiago made aware. Heparin gtt on hold. ASA on hold. Dressings changed. No obvious areas of bleeding. Dressings remained dry once changed.
Dilaudid given for pain. Strong pulse signals via doppler. Will monitor closely.
[2025-04-24 22:41] LABS: Hematocrit 32.8 % (39.0-52.0); Hemoglobin 11.3 g/dL (13.0-18.0)
[2025-04-24] MEDS: ROXICODONE 5 MG PO (22:56)
[2025-04-24] MEDS: ASPIR LOW (ENTERIC COATED) PO (23:16)
[2025-04-25] VITALS (19 sets, daily range): BP systolic 98–144; BP diastolic 61–88; PULSE 63–67; O2SAT 96–100; BMI 25.3
[2025-04-25] MEDS: DILAUDID 0.5 MG IV (00:20)
[2025-04-25 04:51] LABS: Hemoglobin 10.3 g/dL (13.0-18.0); Mean Corp Hgb Conc. 34.3 g/dL (33.0-37.0); Mean Corpuscular Hgb 32.3 pg (27.0-31.0); Mean Platelet Volume 11.6 fL (7.4-10.4); Platelet Count 212 10^3/uL (130-400); Red Blood Cell Count 3.19 10^6/uL (4.70-6.10); Red Cell Dist. Width 14.6 % (11.5-14.5); White Blood Cell Count 12.5 10^3/uL (4.8-10.8)
[2025-04-25 05:00] LABS: INR 1.05
[2025-04-25 05:01] LABS: APTT 26.8 Sec (23.4-35.0)
[2025-04-25 05:23] LABS: ALT (SGPT) 20 U/L (0-50); AST (SGOT) 26 U/L (17-59); Albumin 3.2 g/dl (3.5-5.0); Alkaline Phosphatase 59 U/L (38-126); Blood Urea Nitrogen 28 mg/dl (9-20); Calcium 8.6 mg/dl (8.4-10.2); Carbon Dioxide 13 mmol/L (22-30); Chloride 112 mmol/L (98-107); Estimated Creatinine Clearance 27 ml/min; Glucose 144 mg/dl (70-99); Potassium 4.8 mmol/L (3.5-5.1); Sodium 137 mmol/L (135-145); Total Bilirubin 0.4 mg/dl (0.2-1.3); Total Protein 5.4 g/dl (6.3-8.2); eGFR 34.57
[2025-04-25] MEDS: SODIUM BICARBONATE 1150 MEQ IV (06:15)
--- NOTE | 2025-04-25 06:30 | PTCARENOTE ---
Dr Ko at bedside. Distal dressing removed. Hematoma noted under ramiro. Heparin gtt restarted. Pulses remain strong via doppler. Very tender at site of hematoma. Labs ordered for 1300. Report given to oncoming shift.
[2025-04-25] MEDS: NSS IV (06:36)
[2025-04-25] MEDS: ZOFRAN 4 MG IV (06:57)
--- NOTE | 2025-04-25 07:12 | W.PN.VS ---
Today's Communication / Plan
-
follow labs
hep 500
Assessment/Plan
-
s/p bypass
- graft patent
- restart hep at 500
- follow labs and exam
- oif hematoma worsens, will need washout
- discussed with patient
Subjective Data
-
Date of Service: April 25, 2025
doing well
some pain over lateral calf incision
Objective Data
-
Vital Signs
Temp Pulse Resp BP Pulse Ox
96.6 F L 74 15 111/77 95
04/25/25 06:35 04/25/25 06:15 04/25/25 06:15 04/25/25 06:00 04/25/25 06:15
Intake and Output
04/24/25 04/25/25 04/26/25
06:59 06:59 06:59
Intake Total 1770 / 1770
Output Total 1350 / 1350 1760 / 1760
Balance -1350 / -1350
Intake:
IV fluids (Total) 1770 / 1770
Heparin 30 / 30
NSS 1660 / 1660
Sterile Water For Injection 80 / 80
1000 ml 1,000 ml @ 80 mls/hr IV
.[id number] MARYURI with Sodium
Bicarbonate 150 Meq Rx#:
[id number]
Output:
Drain Output (Total) 215 / 215
Right Middle Leg Bobby-Heath 215 / 215
Urine, Cole 1545 / 1545
Urine, Voided 1350 / 1350
Calcium 8.6 mg/dl (8.4-10.2) 04/25/25 04:12
Magnesium 2.1 mg/dl (1.6-2.3) 04/21/25 07:21
Total Bilirubin 0.4 mg/dl (0.2-1.3) 04/25/25 04:12
AST 26 U/L (17-59) 04/25/25 04:12
ALT 20 U/L (0-50) 04/25/25 04:12
Alkaline Phosphatase 59 U/L (38-126) 04/25/25 04:12
Total Protein 5.4 g/dl (6.3-8.2) L D 04/25/25 04:12
Albumin 3.2 g/dl (3.5-5.0) L 04/25/25 04:12
Physical Exam
-
rrr
ctab
nt,nd,soft
+ graft pulse
excellent dp signal
inc - dressing changed
no active bleeding
small hematoma in tunnel tract and lat calf
no signs of skin compromise of compartment syndrome
--- NOTE | 2025-04-25 07:47 | W.PN.HOSP.TC ---
Today's Communication/Plan
-
Continue heparin GTT
Continue bicarb gtt.
Assessment / Plan
Assessment / Plan
Impression
85-year-old male admitted for management of thrombosed right popliteal artery.
Plan
#Peripheral arterial disease
#Thrombosed right popliteal artery
POD #1 , s/p femoral to anterior tibial bypass
Restarted on heparin drip, may transition to Eliquis tomorrow/at discharge
Restart aspirin
Monitor drain output
Monitor labs
Look for enlarging hematoma, may need washout if it worsens
Monitor fever curve, WBC
Vascular surgery on board, appreciate recs
PT/OT
CT angio�
1. 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 There is occlusion of the right distal SFA and popliteal artery, including thrombosed aneurysm of the right popliteal artery. Occlusion of the proximal right anterior tibial artery,
tibioperoneal trunk, and proximal posterior tibial and peroneal arteries. Reconstitution of the right proximal anterior tibial, posterior tibial, and peroneal arteries, although the distal aspect below the mid calf level is not well evaluated due to
contrast bolus timing.
2. 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 Left popliteal aneurysm does not appear to be occluded, however evaluation is slightly suboptimal due to contrast bolus timing.
3. 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
4. 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
5. Mild coronary arterial calcification. Please correlate with symptoms of and risk factors for coronary artery disease, with further workup as clinically appropriate.
6. Cholelithiasis.
#Metabolic acidosis
Likely ischemic versus renal
Continue bicarb drip
Monitor BMP
# CKD
Creatinine�1.9
[address] evidence of high-grade stenosis of right renal artery might be a contributing factor
Hold losartan
Monitor BMP
#Hypertension
Continue atenolol
Hold losartan
#DVT prophylaxis�heparin GTT
Regular diet
Full code
Anticipated Discharge: 24 - 48 hours
Subjective/Interval History
-
Date of Service: April 25, 2025
Overnight�patient had been leaking blood from saphenous vein graft sites. Also had hematoma at the operated site. Vascular informed, heparin drip and aspirin were held.
In the morning today his heparin was restarted after being seen by Dr. Ko.
Objective Data
-
Labs:
Laboratory Results
04/24/25 04/25/25 04/25/25
22:33 04:12 13:00
WBC 12.5 H Pending
Hgb 11.3 L 10.3 L Pending
Hct 32.8 L 30.0 L Pending
Plt Count 212 Pending
PT 14.0 Pending
INR 1.05 Pending
APTT 26.8 Pending
Sodium 137 Pending
Potassium 4.8 Pending
Chloride 112 H Pending
Carbon Dioxide 13 L* Pending
BUN 28 H Pending
Creatinine 1.9 H Pending
Glucose 144 H Pending
Calcium 8.6 Pending
Total Bilirubin 0.4
AST 26
ALT 20
Alkaline Phosphatase 59
Vital Signs:
Vital Signs
Temp Pulse Resp BP Pulse Ox
96.7 F L 69 18 111/77 97
04/25/25 07:24 04/25/25 07:00 04/25/25 07:00 04/25/25 06:00 04/25/25 07:00
I&O
04/24/25 04/25/25 04/26/25
06:59 06:59 06:59
Intake Total 1770 / 1855 85 / 85
Output Total 1350 / 1350 1760 / 1795 35 / 35
Balance -1350 / -1350 50 / 50
Physical Exam
-
General: Well Developed and Well Nourished
HEENT: Normocephalic and Atraumatic
Respiratory: Clear to Auscultation
Cardiac: Regular Rhythm and S1/S2
GI: Soft, Nontender, Nondistended and Normal Bowel Sounds
Musculoskeletal: Other (Right lower extremity-incision site with ramiro, anticipated tenderness around the incisional site. MYRON drain having sanguinous output. Dorsalis pedis pulse +, neurovasculature intact)
Skin: Warm and Dry
Neuro: Awake, Alert, Oriented and AO x 3
Psych: Calm
[2025-04-25] MEDS: TENORMIN 25 MG PO (07:55)
--- NOTE | 2025-04-25 08:22 | CON.INTV ---
Consultation
Consultation Request
Date/Time Consultation Requested: 04/24/2025 - 141
Date/Time Consultation Performed: 04/25/2025 - 810
Requesting Provider: ANNETTE Dale
Performing Provider: Dr. Houston
Reason for Consultation: s/p RLE bypass
Medical History
-
Chief Complaint: Right foot pain
History of Present Illness:
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
severe right lower extremity/foot pain, sent into the hospital by vascular surgery, Dr. Cole. Patient known to the vascular surgery service with last visit on 04/20/[address] Cole. Patient has a known thrombosed right popliteal artery
aneurysm. Patient has been having right foot pain with critical limb threatening ischemia. Patient was recommended on 04/20/2025 to go to the ER immediately. CTA abdominal aorta with runoff on 04/22/2025 showed a 2.3 cm right popliteal artery
aneurysm with occlusion of the distal right sided SFA and popliteal artery. Also an aneurysm of the left popliteal artery measuring 1.5 cm with no occlusion of the left popliteal aneurysm. There was also 50-75% stenosis of the origin of the celiac
axis and high-grade stenosis near the origin of the right renal artery (>75%). Patient was recommended to have a right lower extremity vascular intervention which the patient consented to. Yesterday, he obtained a right superficial femoral artery
to anterior tibial artery bypass using ipsilateral nonreversed great saphenous vein, as well as balloon angioplasty of both the right DP + AT arteries. Patient was transferred to the ICU postoperatively and mixing engineer services consulted for
additional management/recommendations.
When I saw the patient, he was resting in bed breathing comfortably on room air saturating 97%. A-line shows BP 85/66, BP via NIBP: 120/62 and heart rate 71. He has some aching of his right lower extremity but otherwise has no right lower
extremity numbness, tingling and his right foot pain is much better. He also denies chest pain, SOB, LÓPEZ, nausea, fevers or chills.
PMHx: History of prostate cancer, hypertension, hypercholesterolemia, ED, AAA, PAD, non-Hodgkin's lymphoma
PSHx: Splenectomy due to trauma, vasectomy, herniorrhaphy, EVAR, aorta surgery, AAA biopsy
Past Medical History
Past Medical History: Other (Above as per HPI)
Past Surgical History: Other (Above as per HPI)
Social History
Tobacco: Non-smoker
Alcohol: Former (Former heavy alcohol use, now drinks 3 alcoholic beverages a week)
Drug: None
Personal:
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
Family History
Family History: CAD (Father ( from an CO at age 69))
Allergies / Home Medications
Allergies
Allergy/AdvReac Type Severity Reaction Status Date / Time
No Known Allergies Allergy Verified 04/20/25 14:58
Home Medications
�Medication �Instructions �Recorded �Confirmed �Last Taken �Type
colestipol 1 gram tablet 1 g PO BID High Cholesterol 07/03/23 04/20/25 04/20/25 History
losartan 50 mg tablet 50 mg PO DAILY Blood Pressure 07/03/23 04/20/25 04/20/25 History
omeprazole 20 mg tablet,delayed 20 mg PO NOON Gastrointestinal 07/03/23 04/20/25 04/20/25 History
release Issue
zinc-magnesium aspart-vit B6 10 1 cap PO DAILY Supplement 07/03/23 04/20/25 04/20/25 History
mg-150 mg-3.83 mg capsule
omega 3-fzy-wlc-fish oil 1,200 mg 1 cap PO DAILY Supplement ##0 09/06/23 04/20/25 04/20/25 History
(144 mg-216 mg) capsule (Fish Oil)
acetaminophen 500 mg tablet 1,000 mg PO Q6HPRN PRN mild pain 09/11/23 04/20/25 04/19/25 History
aspirin 81 mg tablet,delayed 81 mg PO HS Blood Clot 04/20/25 04/20/25 04/19/25 History
release Prevention/Tx
atenolol 25 mg tablet 25 mg PO DAILY Blood Pressure 04/20/25 04/20/25 04/20/25 History
Review of Systems
-
History Source: Patient
All other systems: Negative unless noted
Vitals / Labs / Diagnostic Testing
Vital Signs
Temp Pulse Resp BP Pulse Ox
97.7 F 62 23 134/85 98
04/25/25 11:00 04/25/25 11:00 04/25/25 11:00 04/25/25 11:00 04/25/25 10:00
Laboratory Results
04/24/25 04/25/25
16:05 04:12
PT 15.5 H 14.0
INR 1.20 1.05
APTT > 200 H* 26.8
Diagnostic Testing:
Physical Exam
-
HEENT: Normocephalic and Anicteric
Cardiovascular: S1/S2 and Peripheral Edema (Trace right lower extremity edema; no edema in the left lower extremity)
Respiratory: Clear, Wheeze (negative), Rales (negative), Rhonchi (negative) and Non-Labored Respirations
GI: Soft, Non Distended, Non Tender and Normal Bowel Sounds
Neurology: AO x 3 and Tremors (negative)
Skin: Warm, Dry and Other (Suture seen along right lower extremity with no exsanguination or purulence)
General: Respiratory Distress (negative), Pain (Discomfort along the right lower extremity), Chills (negative) and Sweats (negative)
Assessment
-
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
presented with a severe right lower extremity/foot pain, sent into the hospital by vascular surgery, Dr. Cole. Patient known to the vascular surgery service with last visit on 04/20/[address] Cole. Patient has a known thrombosed right
popliteal artery aneurysm. Patient has been having right foot pain with critical limb threatening ischemia. Patient was recommended on 04/20/2025 to go to the ER immediately. CTA abdominal aorta with runoff on 04/22/2025 showed a 2.3 cm right
popliteal artery aneurysm with occlusion of the distal right sided SFA and popliteal artery. Also an aneurysm of the left popliteal artery measuring 1.5 cm with no occlusion of the left popliteal aneurysm. There was also 50-75% stenosis of the
origin of the celiac axis and high-grade stenosis near the origin of the right renal artery (>75%). Patient was recommended to have a right lower extremity vascular intervention which the patient consented to. On 04/24/2025, he obtained a right
superficial femoral artery to anterior tibial artery bypass using ipsilateral nonreversed great saphenous vein, as well as balloon angioplasty of both the right DP + AT arteries. Patient was transferred to the ICU postoperatively and mixing engineer
services consulted for additional management/recommendations.
Chronic conditions NEWS REPORTER: History of prostate cancer, hypertension, hypercholesterolemia, ED, AAA, PAD, non-Hodgkin's lymphoma
Impression:
#Right popliteal artery aneurysm thrombosis with limb threatening ischemia s/p right superficial femoral artery to anterior tibial artery bypass using ipsilateral nonreversed great saphenous vein with balloon angioplasty of the right dorsalis pedis
artery + right anterior tibial artery (POD #1)
#Leukocytosis likely reactive
#Anemia
#Metabolic acidosis with preserved anion gap likely due to GLORIA
#GLORIA on CKD (baseline creatinine approximately 1.3)
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
#Mild coronary arterial calcification (per CTA abdominal aorta with runoff on 04/22/2025)
#Former alcohol abuse, now with 3 alcoholic beverages per week
Plan:
Postoperative surgical intensive care unit monitoring
Supplemental oxygen as needed to maintain SpO2 >90-94%
prn nebulized bronchodilators
Incentive spirometry encouraged 10x per hour for at least 4 hrs a day
Aspiration precautions
Pain control
Neuro and vascular checks per protocol
Maintain MAP>65
Replete electrolytes with K>4, Mg>2
Maintain euglycemia with goal BG 140-180
Vascular surgery following-correspondence and operative notes reviewed
Transfuse blood products as needed to keep Hb>7g/dL, and plt>50k (given post-operative status)
Continue heparin drip + aspirin
DVT prophylaxis
Early nutrition
Early mobilization
Code status: DNR/DNI
Continue ICU level of care with q1hr neurovascular checks.
Critical care statement: A total of 38 minutes of critical care time was provided for this patient today. This includes management of unstable vital signs, evaluation of the patient at bedside, reviewing the patient's pertinent medical records
including radiographs, microbiology, laboratory evaluations, and discussion with primary team, consultants, pharmacy, nutrition, physical therapy, case management, charge nurse, critical care nursing, and respiratory therapy.
--- NOTE | 2025-04-25 08:26 | PTCARENOTE ---
pt received from previous rn aox4, nsr on monitor, left radial deepthi zeroed and functioning- positional at times. right lower leg nagi with ramiro intact scant bloody drainage noted, hematoma seen with offgoing RN. right thigh aquacel c/d/i, laura
drain with sanginous drainage. luna draining cyu. pt able to turn and reposition self, educated about bedrest and plan of care, verbalized understanding. heparin and bicarb gtt continue per order. all safety precautions in place, call walker within
reach.
--- NOTE | 2025-04-25 09:23 | PTCARENOTE ---
pt bp in 90s-100s, urine output 20cc/hr, Dr. Harris and Dr. Pagan aware, ivf increased to to 125cc/hr. no further orders.
--- NOTE | 2025-04-25 09:28 | PTCARENOTE ---
Addendum entered by Alejandra Lyn RN 04/25/25 10:00:
Dr. Ko aware of clots in laura drain tube, and ok per md for pt to work with pt/ot
Original Note:
pt bp in 90s-100s, urine output 20cc/hr, Dr. Ko and Dr. Pagan aware, ivf increased to to 125cc/hr. no further orders.
--- NOTE | 2025-04-25 11:18 | PTCARENOTE ---
pt oob to chair with pt and ot, denies pain at this time. assessment unchanged.
[2025-04-25] MEDS: PROTONIX 40 MG PO (12:06)
[2025-04-25 13:43] LABS: Hematocrit 27.1 % (39.0-52.0); Hemoglobin 9.8 g/dL (13.0-18.0); Mean Corp Hgb Conc. 36.2 g/dL (33.0-37.0); Mean Corpuscular Hgb 32.9 pg (27.0-31.0); Mean Corpuscular Volume 90.9 fL (80.0-94.0); Mean Platelet Volume 11.5 fL (7.4-10.4); Platelet Count 198 10^3/uL (130-400); Red Blood Cell Count 2.98 10^6/uL (4.70-6.10); Red Cell Dist. Width 14.6 % (11.5-14.5); White Blood Cell Count 12.8 10^3/uL (4.8-10.8)
[2025-04-25 13:44] LABS: INR 1.08; PT 14.3 Sec (11.4-14.6)
[2025-04-25 13:45] LABS: APTT 36.6 Sec (23.4-35.0)
[2025-04-25 13:57] LABS: Blood Urea Nitrogen 33 mg/dl (9-20); Calcium 8.8 mg/dl (8.4-10.2); Carbon Dioxide 17 mmol/L (22-30); Chloride 105 mmol/L (98-107); Estimated Creatinine Clearance 25 ml/min; Glucose 111 mg/dl (70-99); Potassium 4.4 mmol/L (3.5-5.1); Sodium 131 mmol/L (135-145); eGFR 32.51
--- NOTE | 2025-04-25 14:11 | PTCARENOTE ---
pt with minimal drainage from right leg, Dr. Ko aware and aware of afternoon labs, no new orders.
--- NOTE | 2025-04-25 15:31 | CM ---
chart reviewed: PT recommends Home Health vs OT recommends SNF when stable for discharge;
Store Clerk Checker will monitor and follow up closer to discharge for final determination of disposition
--- NOTE | 2025-04-25 18:06 | PTCARENOTE ---
assessment unchanged, pt tolerated being oob for 6 hours. right leg unchanged, see neurovasc flowsheet
--- NOTE | 2025-04-25 21:02 | PTCARENOTE ---
Assumed care of pt at 1900. Pt is A/O x4, pleasant and cooperative with care. Denies pain at this time, discussed with patient his options for pain mgt if he does develop pain and to let me know if he needs anything for pain. Neurovascular check
done in tandem with offgoing RN, as well as assessing RLE dressings and MYRON drain. Heparin drip infusing at 500 units/hr. See nursing shift assessment flowsheet for full physical assessment details. SR 60s on monitor. Call walker and personal items
within reach.
[2025-04-26] VITALS (28 sets, daily range): BP systolic 73–148; BP diastolic 59–108; BMI 25.6
--- NOTE | 2025-04-26 00:57 | PTCARENOTE ---
Assessment unchanged. Neurovascular assessment unchanged as well, dressings still with same amount of shadowing, scant sanguinous drainage from distal dressing, unchanged. MYRON emptied for only 2mL sanguinous drainage. Arterial line was oozing around
insertion site, entire dressing taken down and changed, new bio patch applied and gauze placed over that in case more oozing occurred. So far dressing is C/D/I. Pt remains on Heparin drip at 500 units/hr. SR 60s on monitor.
[2025-04-26 04:18] LABS: Hematocrit 23.9 % (39.0-52.0); Hemoglobin 8.4 g/dL (13.0-18.0); Mean Corp Hgb Conc. 35.1 g/dL (33.0-37.0); Mean Corpuscular Hgb 32.2 pg (27.0-31.0); Mean Corpuscular Volume 91.6 fL (80.0-94.0); Mean Platelet Volume 12.3 fL (7.4-10.4); Platelet Count 179 10^3/uL (130-400); Red Blood Cell Count 2.61 10^6/uL (4.70-6.10); Red Cell Dist. Width 14.5 % (11.5-14.5); White Blood Cell Count 11.8 10^3/uL (4.8-10.8)
[2025-04-26 04:41] LABS: Blood Urea Nitrogen 40 mg/dl (9-20); Calcium 8.4 mg/dl (8.4-10.2); Carbon Dioxide 19 mmol/L (22-30); Chloride 108 mmol/L (98-107); Estimated Creatinine Clearance 27 ml/min; Glucose 89 mg/dl (70-99); Potassium 4.4 mmol/L (3.5-5.1); Sodium 133 mmol/L (135-145); eGFR 34.57
--- NOTE | 2025-04-26 04:51 | PTCARENOTE ---
Physical assessment and neurovascular assessment unchanged. SB on monitor, HR 50s, occasionally going down to 40s, with PACs. SpO2 currently 93% on RA.
--- NOTE | 2025-04-26 07:30 | W.PN.VS ---
Today's Communication / Plan
-
increase hep
follow hgb
oob
Assessment/Plan
-
s/p bypass
- graft patent
- increase hep gtt andfollow hgb
- follow labs and exam
- i do not see any hematoma or iisue to explain drop in hgb. no signs of continued bleeding.
- will monitor hgb as we increase hep gtt
- discussed with patient
Subjective Data
-
Date of Service: April 26, 2025
looks great overall
pain controlled
Objective Data
-
Vital Signs
Temp Pulse Resp BP Pulse Ox
98.3 F 61 15 117/70 97
04/26/25 07:00 04/26/25 06:00 04/26/25 06:00 04/26/25 06:00 04/26/25 06:00
Intake and Output
04/25/25 04/26/25 04/27/25
06:59 06:59 06:59
Intake Total 1770 / 1855 1350 / 1350
Output Total 1760 / 1795 3043 / 3043
Balance 10 -1693 / -1693
Intake:
IV fluids (Total) 1770 / 1855 1350 / 1350
Heparin 30 / 35 110 / 110
NSS 1660 / 1660
Sterile Water For Injection 80 / 160 1240 / 1240
1000 ml 1,000 ml @ 125 mls/hr
IV .Q9H12M MARYURI with Sodium
Bicarbonate 150 Meq Rx#:
[id number]
Output:
Drain Output (Total)
Right Middle Leg Bobby-Heath
Urine, Cole 1545 / 1580 3040 / 3040
Lab Results
04/26/25 03:44
04/26/25 03:44
Calcium 8.4 mg/dl (8.4-10.2) 04/26/25 03:44
Magnesium 2.1 mg/dl (1.6-2.3) 04/21/25 07:21
Total Bilirubin 0.4 mg/dl (0.2-1.3) 04/25/25 04:12
AST 26 U/L (17-59) 04/25/25 04:12
ALT 20 U/L (0-50) 04/25/25 04:12
Alkaline Phosphatase 59 U/L (38-126) 04/25/25 04:12
Total Protein 5.4 g/dl (6.3-8.2) L D 04/25/25 04:12
Albumin 3.2 g/dl (3.5-5.0) L 04/25/25 04:12
Physical Exam
-
rrr
ctab
inc c/d/i
no signs of bleeding
calf soft
lateral calf pain from yesterday improved
+ graft pulse
+ DP signal
[2025-04-26] MEDS: TENORMIN 25 MG PO (08:00)
--- NOTE | 2025-04-26 08:04 | PTCARENOTE ---
pt received frm previous rn- aox4, nsr on monitor, room air, no complaints at this time. Dr. Ko at bedside, aware of labs, right leg hematoma unchanged, dressings remain with small amount of drainage. laura with scant bloody drainage, old clot
noted inside drain. right calf rotary surface grinder, ramiro intact. increased heparin to 800units/hr per order. Per Dr. Ko continue q2hr pulse checks. all safety precautions in place, call walker within reach.
--- NOTE | 2025-04-26 08:27 | W.PN.INTV ---
Today's Communication / Plan
Recommendations
Up OOB as tolerated
Continue neurovascular checks
Heparin drip + ASA
Goal MAP 70�100
Postoperative management as per vascular surgery
Goal BG 140�180
Maintain SpO2 >90-94%
Continue ICU level of care until deemed stable for downgrade per vascular surgery. Loans Consultant services will continue to follow along until patient transferred to telemetry status, at which point we will sign off at that time.
Assessment
-
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
presented with a severe right lower extremity/foot pain, sent into the hospital by vascular surgery, Dr. Cole. Patient known to the vascular surgery service with last visit on 04/20/[address] Cole. Patient has a known thrombosed right
popliteal artery aneurysm. Patient has been having right foot pain with critical limb threatening ischemia. Patient was recommended on 04/20/2025 to go to the ER immediately. CTA abdominal aorta with runoff on 04/22/2025 showed a 2.3 cm right
popliteal artery aneurysm with occlusion of the distal right sided SFA and popliteal artery. Also an aneurysm of the left popliteal artery measuring 1.5 cm with no occlusion of the left popliteal aneurysm. There was also 50-75% stenosis of the
origin of the celiac axis and high-grade stenosis near the origin of the right renal artery (>75%). Patient was recommended to have a right lower extremity vascular intervention which the patient consented to. On 04/24/2025, he obtained a right
superficial femoral artery to anterior tibial artery bypass using ipsilateral nonreversed great saphenous vein, as well as balloon angioplasty of both the right DP + AT arteries. Patient was transferred to the ICU postoperatively and nail setter
services consulted for additional management/recommendations.
Chronic conditions SANITIZER: History of prostate cancer, hypertension, hypercholesterolemia, ED, AAA, PAD, non-Hodgkin's lymphoma
Impression:
#Right popliteal artery aneurysm thrombosis with limb threatening ischemia s/p right superficial femoral artery to anterior tibial artery bypass using ipsilateral nonreversed great saphenous vein with balloon angioplasty of the right dorsalis pedis
artery + right anterior tibial artery (POD #2)
#Leukocytosis likely reactive
#Anemia
#Metabolic acidosis with preserved anion gap likely due to GLORIA
#GLORIA on CKD (baseline creatinine approximately 1.3)
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
#Mild coronary arterial calcification (per CTA abdominal aorta with runoff on 04/22/2025)
#Former alcohol abuse, now with 3 alcoholic beverages per week
Plan:
Postoperative surgical intensive care unit monitoring
Supplemental oxygen as needed to maintain SpO2 >90-94%
prn nebulized bronchodilators � not currently bronchospastic
Incentive spirometry encouraged 10x per hour for at least 4 hrs a day
Aspiration precautions
Pain control
Neuro and vascular checks per protocol
Maintain MAP>65
Replete electrolytes with K>4, Mg>2
Maintain euglycemia with goal BG 140-180
Vascular surgery following-correspondence and operative notes reviewed
Transfuse blood products as needed to keep Hb>7g/dL, and plt>50k (given post-operative status)
Continue heparin drip + aspirin
DVT prophylaxis
Early nutrition
Early mobilization
Code status: DNR/DNI
Continue ICU level of care until deemed stable for downgrade per vascular surgery. Loans Consultant services will continue to follow along until patient transferred to telemetry status, at which point we will sign off at that time.
Total time spent today was 83 minutes for this encounter. Time includes reviewing laboratory test/imaging results, reviewing pertinent medical records, obtaining and reviewing medical history, performing an appropriate exam, ordering medications,
tests and procedures. Time also includes documentation of this encounter, coordinating patient care and communicating with other healthcare professionals. Total time does not include separately billed tests performed on this date of service.
Subjective Dataa
Subjective Data
Date of Service:
Date of Service: April 26, 2025
Chief Complaint: Loans Consultant Follow Up
Subjective:
Pt seen and evaluated this AM. HR 74, and BP 132/76. He feels well. His daughter, Darshan, is present at bedside. Patient is breathing comfortably on room air and denies right lower extremity pain, numbness or tingling.
Review of Systems
General: Other (Negative unless mentioned above)
Objective Data
Data Reviewed
Vital Signs / I&O / Oxygen:
Vital Signs
Temp Pulse Resp BP Pulse Ox
98.3 F 61 13 117/64 95
04/26/25 07:00 04/26/25 08:00 04/26/25 08:00 04/26/25 08:00 04/26/25 08:00
Intake and Output
04/25/25 04/26/25 04/27/25
06:59 06:59 06:59
Intake Total 1770 / 1855 1350 / 1355 18 / 18
Output Total 1760 / 1795 3043 / 3243 750 / 750
Balance 60 -1693 / -1888 -732 / -732
SaO2 95
Nasal Cannula flow liters per 4
minute
Physical Exam
General: Respiratory Distress (negative), Comfortable, Chills (negative) and Sweats (negative)
HEENT: Normocephalic and Anicteric
Cardiovascular: S1-S2 and Peripheral Edema (negative)
Respiratory: Clear, Wheeze (negative), Crackles (negative), Rhonchi (negative) and Non-Labored Respirations
GI: Soft, Non Distended, Non Tender and Normal Bowel Sounds
Neurology: AO x 3 and Tremors (negative)
Skin: Warm, Dry, Cyanosis (negative), Jaundice (negative) and Other (Sutures on right lower extremity)
Labs/Micro/Reports
Lab Data
04/26/25 03:44
Laboratory Results
04/25/25
13:22
PT 14.3
INR 1.08
APTT 36.6 H
--- NOTE | 2025-04-26 10:32 | CM ---
Met with patient at bedside; explained that PT recommended Home Health at disposition; patient agreeable; agency options identified; lives in [place]; patient gave permission to call his daughter with update
No home care agency preference; patient and daughter agreeable to [facility]; [facility]
IMM benefit explained to patient ; form signed @ 1030
Plan: discharge to home when medically stable with home health services
--- NOTE | 2025-04-26 11:26 | W.PN.HOSP.TC ---
Today's Communication/Plan
-
Continue current management
Vascular checks every 2 hours
Trend CBC and check iron studies
Likely discharge home with VN tomorrow
Assessment / Plan
Assessment / Plan
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
#History of statin induced myopathy
-POD #3 from superficial femoral to anterior tibial bypass
-Presented with coolness and numbness to RLE digits, CAT showed occlusive thrombus
-Remains on IV heparin drip, aspirin, colestipol; does not tolerate statins
-Pulses palpable today, remains with signs of good perfusion postoperatively
-Continue with current medications and monitor RLE vascular checks Q2
#Acute blood loss anemia
-Developed some bleeding from the RLE incisional site with signs of hematoma as of morning 04/25
-Bleeding seems to have resolved, no signs of worsening hematoma, hemoglobin down to 8.4
-Remains on IV heparin drip as above, will continue and monitor closely for signs of bleed
-Will check iron studies, B12, folate and replete if needed
-Continue to trend CBC, hemoglobin goal >7
#NAGMA
-Suspect degree of chronic renal insufficiency superimposed with mild hypovolemia postoperatively
-Has been given 1 L of IV bicarbonate containing fluids with bicarb improved from 13-19
-Will continue to monitor BMP off of bicarb drip for now, start oral bicarb
-Consider resuming IV fluids if worsening
#CKD stage IV
#Right renal artery stenosis
#AOCD
-Baseline creatinine seems to be near 2.0; CTA here showed proximal right renal artery stenosis
-Likely contributing to his baseline anemia and acidemia here, no signs of bone mineral disease
-Discontinued losartan to prevent further worsening to his baseline renal function
-Started on oral bicarbonate as above
-Will need OP nephrology at [place]
#Primary hypertension
-Home regimen included atenolol and losartan, losartan DC'd as above due to CKD
-Unclear if associated with CKD or other systemic findings
-Blood pressure has been stable on atenolol alone
#ASCVD
-Has extensive PAD history including AAA s/p EVAR, lower extremity popliteal aneurysms
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
-Unable to tolerate statin due to myopathy in the past
-Continue colestipol, she will follow-up OP for consideration of PCSK9i
#H/O non-Hodgkin's lymphoma
#S/p splenectomy
Diet: Cholesterol-lowering
DVT prophylaxis: heparin gtt
CODE STATUS: DNR
Anticipated Discharge: 24 - 48 hours
Subjective/Interval History
-
Date of Service: April 26, 2025
Seen and examined at the bedside. No acute events reported overnight. AFVSS this morning
Hemoglobin down trended to 8.4. Patient denies any known bleeding, nursing without any bleeding reported
States he otherwise feels well today and denies any complaints.
Objective Data
-
Labs:
Laboratory Results
04/26/25 04/26/25 04/26/25
03:44 07:33 14:00
WBC 11.8 H Pending
Hgb 8.4 L Pending
Hct 23.9 L Pending
Plt Count 179 Pending
APTT Pending Pending
Sodium 133 L
Potassium 4.4
Chloride 108 H
Carbon Dioxide 19 L
BUN 40 H
Creatinine 1.9 H
Glucose 89
Calcium 8.4
Vital Signs:
Vital Signs
Temp Pulse Resp BP Pulse Ox
98.3 F 61 13 117/64 95
04/26/25 07:00 04/26/25 08:00 04/26/25 08:00 04/26/25 08:00 04/26/25 08:00
I&O
04/25/25 04/26/25 04/27/25
06:59 06:59 06:59
Intake Total 1770 / 1855 1350 / 1355
Output Total 1760 / 1795 3043 / 3243 750 / 750
Balance -1692 / -1888 -732 / -732
Review of Systems
-
History Source: Patient
All other systems: Reviewed and negative
Physical Exam
-
General: Well Developed, Well Nourished and No Apparent Distress
HEENT: Normocephalic, Atraumatic, Moist Mucous Membranes and Anicteric
Respiratory: Clear to Auscultation and Non Labored Respirations; Negative Accessory Resp Muscle Use
Cardiac: Regular Rhythm, S1/S2 and Other (Palpable RLE pulses; cap refill <3 secs); Negative Murmur, Rub or Gallop
GI: Soft, Nontender, Nondistended and Normal Bowel Sounds
Musculoskeletal: No Clubbing, No Cyanosis, No Edema and Other (Surgical incision to lateral RLE, well-approximated, no signs of infection or active bleeding)
Skin: Warm and Dry; Negative Rash
Neuro: AO x 3 and Nonfocal/Grossly Intact; Negative Tremors
Psych: Calm
Data Reviewed
-
Labs: Labs Reviewed by me, Discussed with Nurse and Discussed with Patient
[2025-04-26] MEDS: PROTONIX 40 MG PO (11:58)
--- NOTE | 2025-04-26 12:03 | PTCARENOTE ---
pt oob to chair, luna removed and voided in urinal. right leg assessment unchanged. heparin continues as per order.
[2025-04-26 14:34] LABS: APTT 51.9 Sec (23.4-35.0)
--- NOTE | 2025-04-26 14:50 | PTCARENOTE ---
Dr. Ko aware of ptt ordered to increase heparin gtt to 900units/hr.
[2025-04-26] MEDS: SENOKOT-S 1 TABLET PO (15:25)
[2025-04-26] MEDS: SODIUM BICARBONATE 650 MG PO ×2 (15:25→21:04)
[2025-04-26] MEDS: HEPARIN 25000 UNITS/250 ML IV (16:19)
[2025-04-26] MEDS: ASPIRIN 325 MG PO (17:19)
--- NOTE | 2025-04-26 17:20 | W.PN.UPDATE ---
Update Note
Progress Note Update
Stroke alert called on patient at 4:20. He had witnessed acute right facial droop and expressive aphasia. Patient seen in CT scan.
On exam patient has mild right facial droop, and progressive expressive aphasia. He can move all extremities. difficulty raising right leg (Recent surgery)
CT Head without bleed. CTA read with stenosis ICA, no large M branch thrombus that would require intervention.
Asa 325mg PO x 1 now
OK to stop IV heparin gtt with risk of hemorrhagic conversion, discussed with Dr. Ko.
will start hep subQ for DVT PPx
Per [facility] neuro, hold off on Plavix as he is just getting off heparin gtt, can reassess tomorrow
Neuro checks
MRI ordered
TTE
Dr. Houston updated and saw patient and family at bedside.
Total Critical Care Time 45 minutes. I was immediately available to the patient and staff. I personally examined, reviewed labs, diagnostic images/reports, interpretations, treatment plans, discussed patient care with other providers and family
or caregivers (if patient is unable to make decisions), entered orders as appropriate and documented the medical record.
--- NOTE | 2025-04-26 17:38 | PTCARENOTE ---
pt was on bedside commode at 1620, at approx 1625 this rn and pct were assisting pt off commode, pt with new right side facial droop and slurred speech. pt was able to say he was at hospital and answer questions appropriately. NIH 2. stroke alert
called, immediately taken to cat scan, Dr. Bhagat aware. while at ct pt with new aphasia, dysarthria and droop unchanged, Dr. Palomino at ct. Dr. Ko and Dr. Houston all aware of stroke alert. pt with NIH of 3, swallow eval completed and pt
passed. pt able to move all extremities. Dr. Palomino and Dr. Houston aware of documented assessment due to pt with right leg surgery. see Dr. Palomino note. pts daughter and granddaughter at the bedside and updated. heparin gtt discontinued as per
order, aspirin given see mar. all safety precautions in place.
--- NOTE | 2025-04-26 18:39 | W.PN.UPDATE ---
Update Note
Progress Note Update
At around 4:45 PM, patient developed right-sided facial droop with slurred speech and expressive aphasia. Stroke alert called. CT head showed no acute intracranial abnormality. NIH stroke scale is 3. CTA head/neck obtained, final impression from
radiology still pending, although preliminarily there is areas of stenosis with no acute thrombosis seen � will await final read.
Dr. Palomino, the primary hospitalist, called and spoke with the tele-neurologist. Decision made to give the patient aspirin, stop heparin drip that he was on given risk of hemorrhagic conversion and hold off on Plavix as well due to high risk of
possible hemorrhagic conversion if stroke is discovered. Will need to continue to closely monitor this patient with [facility] neurochecks.
--- NOTE | 2025-04-26 19:00 | PTCARENOTE ---
Rec'd pt resting in bed, family at bedside, oriented, NIH- 0, speech clear, ZAMORANO , follows commands, SR w/ PAC, bp stable, R distal pulses via doppler, R leg dsgintact w/ old drainage, R leg MYRON w/ sang drainage, RA, lungs decr in bases, sat 96, +
bowel sounds, no bm, abd soft, denies n/v, voiding yellow urine w/o difficulty
[2025-04-26] MEDS: HEPARIN 5000 UNITS SC (20:12)
[2025-04-27] VITALS (26 sets, daily range): BP systolic 97–157; BP diastolic 65–98; BMI 25.4
--- NOTE | 2025-04-27 | PTCARENOTE ---
Sys reviewed, sat 88, 2 liters nc applied, lungs decr in bases, neuro intact, CHG bath done, linens changed
[2025-04-27 03:47] LABS: % Basophils 0.5 % (0-2); % Eosinophils 3.6 % (0-6); % Immature Granulocytes 0.6 % (0-0.5); % Lymphocytes 21.9 % (20.5-51.1); % Monocytes 10.6 % (1.7-9.3); % Neutrophils 62.8 % (42.2-75.2); Absolute Basophils 0.1 10^3/uL (0-0.2); Absolute Eosinophils 0.4 10^3/uL (0-0.7); Absolute Immature Granulocytes 0.1 10^3/uL (0-0.05); Absolute Lymphocytes 2.3 10^3/uL (1.2-3.4); Absolute Monocytes 1.1 10^3/uL (0.1-0.6); Absolute Neutrophils 6.5 10^3/uL (1.4-6.5); Hematocrit 24.9 % (39.0-52.0); Hemoglobin 8.8 g/dL (13.0-18.0); Mean Corp Hgb Conc. 35.3 g/dL (33.0-37.0); Mean Corpuscular Hgb 32.5 pg (27.0-31.0); Mean Corpuscular Volume 91.9 fL (80.0-94.0); Mean Platelet Volume 11.7 fL (7.4-10.4); Nucleated Red Blood Cells % 0 % (-); Platelet Count 196 10^3/uL (130-400); Red Blood Cell Count 2.71 10^6/uL (4.70-6.10); Red Cell Dist. Width 14.6 % (11.5-14.5); White Blood Cell Count 10.3 10^3/uL (4.8-10.8)
--- NOTE | 2025-04-27 04:00 | PTCARENOTE ---
sys reviewed, assisted to bsc w/ assist of 2; had flatus, back to bed
[2025-04-27 04:03] LABS: Blood Urea Nitrogen 35 mg/dl (9-20); Calcium 9.1 mg/dl (8.4-10.2); Carbon Dioxide 21 mmol/L (22-30); Chloride 106 mmol/L (98-107); Estimated Creatinine Clearance 25 ml/min; Glucose 95 mg/dl (70-99); HDL Cholesterol 40 mg/dl; Iron 42 ug/dl (49-181); LDL Cholesterol, Calculated 125 mg/dl; Magnesium 1.9 mg/dl (1.6-2.3); Potassium 4.4 mmol/L (3.5-5.1); Sodium 133 mmol/L (135-145); Total Cholesterol 208 mg/dl (50-199); Triglyceride 216 mg/dl (10-149); Very Low Density Lipoprotein 43 mg/dl (0-30); eGFR 32.51
[2025-04-27 04:11] LABS: Percent Saturation 15 % (20-50); Total Iron Binding Capacity 264 ug/dl (261-462)
[2025-04-27 06:11] LABS: Folate 6.7 ng/ml (2.76-20); Vitamin B12 455 pg/ml (239-931)
--- NOTE | 2025-04-27 06:17 | W.PN.HOSP.TC ---
Addendum entered and electronically signed by Harriet Keane MD 04/27/25 18:44:
I saw and evaluated the patient independently. I reviewed the resident�s note and agree with findings and plan as documented by Dr. Payne.
GENERAL: well developed, well nourished, male in no apparent distress--tearful over 's passing last month
HEENT: NC/AT
HEART: regular rate and rhythm, +S1, +S2
LUNGS : clear to auscultation bilaterally
ABDOM: soft, nontender, nondistended, + bowel sounds
EXT: no cyanosis, clubbing, or edema--ramiro and drain in right leg--bruising noted
NEUROLOGIC: grossly intact but have concerns over memory/cognition
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
intracranial abnormality--CTA head/neck(04/26/2025) 65% L ICA and <50% R ICA stenoses--Carotid ultrasound�left�large volume soft plaque in the proximal internal carotid artery, 50-69% ICA stenosis--Right�less than 50% ICA stenosis--Echo with
preserved EF, stage 1 diastolic dysfunction--valvular disease also noted--apprec neuro/vascular--cont asa, thiamine--plan on endarterectomy on left carotid tomorrow
Peripheral arterial disease/Thrombosed right popliteal artery--04/24 s/p femoral to anterior tibial bypass--Heparin drip discontinued after TIA symptoms yesterday--cont asa--apprec vascular--further rec as per them
Anemia--Likely secondary to blood loss or anemia of chronic disease--Developed some bleeding from the RLE incisional site with signs of hematoma as of morning 04/25--Bleeding resolved, no signs of worsening hematoma, hemoglobin 8.8 down from 13
earlier in stay--Continue to trend CBC, hemoglobin goal >7
Metabolic acidosis--Normal anion gap metabolic acidosis�anion gap 6--Likely ischemic versus renal--DC'd bicarb drip, continue oral bicarb
CKD stage 3a--Creatinine�2.0--CT evidence of high-grade stenosis of right renal artery might be a contributing factor--Hold losartan--consider renal consult--Continue oral bicarb
Essential hypertension--Atenolol on hold, telemetry monitoring showed prolonged QT�501--EKG�sinus rhythm with PACs--Hold losartan
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
DVT proph�subcu heparin
code status-- DNR
Original Note:
Today's Communication/Plan
-
MRI brain
Echo
Carotid endarterectomy on left side tomorrow
N.p.o. from midnight
Assessment / Plan
Assessment / Plan
Assessment / Plan
Impression
85-year-old male admitted for management of thrombosed right popliteal artery.
Plan
#Strokelike symptoms
Likely due to TIA from left ICA stenosis.
At around 4:45 PM yesterday, patient developed right-sided facial droop with slurred speech and expressive aphasia. Stroke alert called.
CT head�no acute intracranial abnormality
CTA head/neck(04/26/2025) 65% L ICA and <50% R ICA stenoses.
Carotid ultrasound�left�large volume soft plaque in the proximal internal carotid artery, 50-69% ICA stenosis
Right�less than 50% ICA stenosis
MRI brain pending
Echo pending
Patient is back to his baseline today
Continue neurovascular checks, NIHSS
Neurology on board
Vitamin B12, folate�WNL
Start IV thiamine
Continue aspirin 81 mg
Check SPEP
As per neurology�okay to restart heparin drip if no acute infarcts on brain MRI
Vascular surgery on board�plan on endarterectomy on left carotid tomorrow
#Peripheral arterial disease
#Thrombosed right popliteal artery
POD #3, s/p femoral to anterior tibial bypass
Heparin drip discontinued after TIA symptoms yesterday
Continue aspirin 81 mg
Palpable pulses, good lower extremity perfusion postoperatively
Continue vascular checks
Continue to monitor MYRON drain output
Vascular surgery on board
Plan for endarterectomy of left internal carotid artery tomorrow
#Anemia
Likely secondary to blood loss or anemia of chronic disease
Developed some bleeding from the RLE incisional site with signs of hematoma as of morning 04/25
Bleeding resolved, no signs of worsening hematoma, hemoglobin 8.8
Continue to trend CBC, hemoglobin goal >7
Will transfuse if less than 7
#Metabolic acidosis
Normal anion gap metabolic acidosis�anion gap 6
Likely ischemic versus renal
DC'd bicarb drip, continue oral bicarb
Monitor BMP
# CKD
Creatinine�2.[address] evidence of high-grade stenosis of right renal artery might be a contributing factor
Hold losartan
Continue oral bicarb
Monitor BMP
# Essential hypertension
Atenolol on hold, telemetry monitoring showed prolonged QT�501.
EKG�sinus rhythm with PACs
Hold losartan
#ASCVD
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
#DVT prophylaxis�subcu heparin
Regular diet, n.p.o. from midnight
CODE STATUS�DNR
Anticipated Discharge: > 48 hours
Subjective/Interval History
-
Date of Service: April 27, 2025
Patient is tearful about his condition and recent loss of his .
Objective Data
-
Labs:
Laboratory Results
04/26/25 04/26/25 04/27/25
07:33 20:45 03:19
WBC Cancelled 10.3
Hgb Cancelled 8.8 L
Hct Cancelled 24.9 L
Plt Count Cancelled 196
APTT Cancelled
Sodium 133 L
Potassium 4.4
Chloride 106
Carbon Dioxide 21 L
BUN 35 H
Creatinine 2.0 H
Glucose 95
Calcium 9.1
Vital Signs:
Vital Signs
Temp Pulse Resp BP Pulse Ox
98.1 F 61 21 140/77 98
04/27/25 04:00 04/27/25 06:00 04/27/25 06:00 04/27/25 05:00 04/27/25 06:00
I&O
04/25/25 04/26/25 04/27/25
06:59 06:59 06:59
Intake Total 1770 / 1855 1350 / 1355 176 / 176
Output Total 1760 / 1795 3043 / 3243 2265 / 2265
Balance -169 / -1888 -2088 / -2088
Physical Exam
-
General: Other (Tearful)
HEENT: Normocephalic, Atraumatic and Neck Masses (Lipoma in the left supraclavicular region)
Respiratory: Clear to Auscultation
Cardiac: S1/S2 and Irregular Rhythm
GI: Soft, Nontender, Nondistended and Normal Bowel Sounds
Musculoskeletal: Other (Surgical incision with ramiro on the right lateral aspect of the calf. C/D/I, MYRON drain with sanguinous output, dorsalis pedis pulse +, neurovasculature intact)
Skin: Warm and Dry
Neuro: Awake, Alert, Oriented and AO x 3
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
[2025-04-27] MEDS: ASPIR LOW (ENTERIC COATED) 81 MG PO (08:54)
[2025-04-27] MEDS: HEPARIN 5000 UNITS SC ×2 (08:54→19:48)
[2025-04-27] MEDS: SODIUM BICARBONATE 650 MG PO ×3 (08:54→22:00)
--- NOTE | 2025-04-27 09:00 | PTCARENOTE ---
Rec'd pt at 0700 and stroke neuro check/NIH and Vascular checks completed with off going shift. Rec'd pt awake alert and oriented. NIH is a 0. Speech is clear. Denies dizziness or headache. Smile is even and tongue protrudes midline. ZAMORANO. Denies
pain or discomfort. Conversation is appropriate. Skin is pale pink wm and dry. R leg with aquacell dressings and area on lower leg with ramiro that are intact. Old drainage on aquacell. R thigh MYRON drain to bulb suction with small amt of sang
drainage. Respirs are unlabored. Rec'd pt on 2L nc with sats of 98%- transitioned to RA at 0800 with sats of 96%. BS are decreased at the bases otherwise clear. Monitor [id number]. 50-60's. Denies chest pain. + pulses. PT and DP pulses with the
doppler. R leg is pink and warm with cap refill < 2sec. Denies numbness or discomfort. Abd is soft with + BS. denies nausea. Voiding yellow urine in the urinal. Capped ints intact RAC, L FA and L hand. Sites wnl. Pt able to help with repositioning.
Plan of care reviewed with pt. Call walker in reach. Ready to eat breakfast.
--- NOTE | 2025-04-27 09:14 | W.PN.VS ---
Addendum entered and electronically signed by Hany Cole III, MD 04/27/25 14:07:
This patient was seen and examined in collaboration with ANNETTE Winston. I agree with the history and physical exam as well as the assessment and plan. I have the following additions:
Events from yesterday noted
Patient reports that he is now back to baseline but recalls speech disturbance unfolding
No complaints currently
On physical exam his right leg incisions are clean and dry
MYRON drainage is sanguinous
Palpable graft pulse
Palpable DP pulse
Right foot is warm, pink
Carotid duplex and CT angiography personally reviewed
He has large volume soft plaque in the proximal left internal carotid artery contributing to a 50 to 69% stenosis by duplex. Ulcerated features of the plaque identified on CTA
I suspect his left carotid plaque is the culprit for his symptoms yesterday afternoon and I am recommending endarterectomy. The technical aspects of this procedure were discussed with him and his family at the bedside in detail. The benefits and
rationale for this approach were discussed with all of them in detail. Operative risks were discussed with him in detail including but not limited to bleeding, heart attack, stroke, infection, wound healing complications and cranial nerve injury.
He expressed a clear understanding of our conversation and agrees to proceed with surgery as detailed above.
Signed:
Hany Cole III, MD
Vascular Surgery
[facility]
Original Note:
Today's Communication / Plan
-
See below.
Assessment/Plan
-
s/p bypass
- Appreciate neuro recs, reinitiate anticoagulation once cleared by neuro, MRI pending
- Hgb stable
- PT/OT
- Encourage incentinve spirometery
Subjective Data
-
Date of Service: April 27, 2025
Patient seen and examined at bedside, reports complete resolution of aphasia and facial droop. Reports improvement in pain and ability to move postoperative right leg. Well managed post operative pain.
Objective Data
-
Vital Signs
Temp Pulse Resp BP Pulse Ox
97.9 F 74 25 116/70 96
04/27/25 08:00 04/27/25 09:00 04/27/25 09:00 04/27/25 09:00 04/27/25 09:00
Intake and Output
04/26/25 04/27/25 04/28/25
06:59 06:59 06:59
Intake Total 1350 / 1355 176 / 176
Output Total 3043 / 3243 2265 / 2265
Balance -1693 / -1888 -2089 / -2089
Intake:
Oral fluids 100 / 100
IV fluids (Total) 1350 / 1355 76 / 76
Heparin 110 / 115 76 / 76
Sterile Water For Injection 1240 / 1240
1000 ml 1,000 ml @ 125 mls/hr
IV .Q9H12M MARYURI with Sodium
Bicarbonate 150 Meq Rx#:
[id number]
Output:
Drain Output (Total)
Right Middle Leg Bobby-Heath
Urine, Cole 3040 / 3240 750 / 750
Urine, Voided 1500 / 1500
Lab Results
04/27/25 03:19
04/27/25 03:19
Calcium 9.1 mg/dl (8.4-10.2) 04/27/25 03:19
Magnesium 1.9 mg/dl (1.6-2.3) 04/27/25 03:19
Total Bilirubin 0.4 mg/dl (0.2-1.3) 04/25/25 04:12
AST 26 U/L (17-59) 04/25/25 04:12
ALT 20 U/L (0-50) 04/25/25 04:12
Alkaline Phosphatase 59 U/L (38-126) 04/25/25 04:12
Total Protein 5.4 g/dl (6.3-8.2) L D 04/25/25 04:12
Albumin 3.2 g/dl (3.5-5.0) L 04/25/25 04:12
Physical Exam
-
No apparent distress, resting in bed comfortably
No tachycardia
No dyspnea
Right lower extremity dressing removed, staple site CDI and well approximated, no signs of bleeding, calf soft, MYRON drain with minimal serosanguineous fluid
+ graft pulse
+ DP signal
--- NOTE | 2025-04-27 10:30 | PTCARENOTE ---
Good appetite for breakfast. Vascular surgery in and removed dressing from R leg. Sl sang/serosang oozing at R thigh Dylan site - dressed with 4x4's, otherwise ramiro intact on incisions of R thigh and R lower leg. Denies pain.
--- NOTE | 2025-04-27 11:00 | PTCARENOTE ---
Pt placed on tele pack as he now is tele level and sent via wheelchair to US for Carotid US then for ECHO. Neuro assessment is unchanged. Pts daughters in and updated.
--- NOTE | 2025-04-27 12:23 | W.PN.INTV ---
Addendum entered and electronically signed by Demetrio Mackey MD 04/27/25 14:10:
Plan from vascular surgery noted-in further review there is high risk features on left-sided plaque.
Recommending endarterectomy.
Will see on the postoperative tomorrow 04/28/2025.
Original Note:
Today's Communication / Plan
Recommendations
Continue postoperative care
Continue neurochecks-back to baseline
MRI brain pending
Eventual restart antiplatelets
Increase activity as able
Transfer to telemetry
Sign off
Assessment
-
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
presented with a severe right lower extremity/foot pain, sent into the hospital by vascular surgery, Dr. Cole. Patient known to the vascular surgery service with last visit on 04/20/[address] Cole. Patient has a known thrombosed right
popliteal artery aneurysm. Patient has been having right foot pain with critical limb threatening ischemia. Patient was recommended on 04/20/2025 to go to the ER immediately. CTA abdominal aorta with runoff on 04/22/2025 showed a 2.3 cm right
popliteal artery aneurysm with occlusion of the distal right sided SFA and popliteal artery. Also an aneurysm of the left popliteal artery measuring 1.5 cm with no occlusion of the left popliteal aneurysm. There was also 50-75% stenosis of the
origin of the celiac axis and high-grade stenosis near the origin of the right renal artery (>75%). Patient was recommended to have a right lower extremity vascular intervention which the patient consented to. On 04/24/2025, he obtained a right
superficial femoral artery to anterior tibial artery bypass using ipsilateral nonreversed great saphenous vein, as well as balloon angioplasty of both the right DP + AT arteries. 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
services consulted for additional management/recommendations.
Chronic conditions POT PULLER: History of prostate cancer, hypertension, hypercholesterolemia, ED, AAA, PAD, non-Hodgkin's lymphoma
Impression:
#Right popliteal artery aneurysm thrombosis with limb threatening ischemia s/p right superficial femoral artery to anterior tibial artery bypass using ipsilateral nonreversed great saphenous vein with balloon angioplasty of the right dorsalis pedis
artery + right anterior tibial artery (POD #2)
#Leukocytosis likely reactive
#Anemia
#Metabolic acidosis with preserved anion gap likely due to GLORIA
#GLORIA on CKD (baseline creatinine approximately 1.3)
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
#Mild coronary arterial calcification (per CTA abdominal aorta with runoff on 04/22/2025)
#Former alcohol abuse, now with 3 alcoholic beverages per week
Plan:
-
Possible TIA/CVA-yesterday afternoon 04/26/2025 with slurred speech-facial droop.
Symptoms resolved 04/27/2025.
No motor deficit
Back to his baseline
CT head and neck imaging unremarkable.
Atherosclerotic plaque within the carotid arterial system bilaterally most prominent involving the proximal internal carotid arteries bilaterally, left (approximate 65% stenosis) greater than right (less than 50% stenosis without hemodynamically
significant stenosis.
No findings to suggest internal carotid artery or vertebral artery dissection bilaterally. Mildly dominant right vertebral artery.
No findings to suggest stenosis or occlusion of the proximal middle cerebral arteries bilaterally. 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
For MRI
Neurology following
-
Postoperative surgical intensive care unit monitoring-from the surgical perspective progressing as suspected.
Incentive spirometry encouraged 10x per hour for at least 4 hrs a day
Aspiration precautions
Pain control
Neuro and vascular checks per protocol
Vascular correspondence reviewed.
Continue to increase physical activity as tolerated.
Vascular surgery following-correspondence and operative notes reviewed
Antiplatelets to be reinitiated after cleared by neurology. MRI of the brain pending.
DVT prophylaxis
Code status: DNR/DNI
Patient has been transferred to telemetry. Critical care team will sign off.
Subjective Dataa
Subjective Data
Date of Service:
Date of Service: April 27, 2025
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
Subjective:
Events from last night noted
Patient back to baseline
Denies any headache or blurry vision.
He states that his speech is back to his normal.
Denies any weakness
Objective Data
Data Reviewed
Vital Signs / I&O / Oxygen:
Vital Signs
Temp Pulse Resp BP Pulse Ox
97.9 F 74 25 116/70 96
04/27/25 08:00 04/27/25 09:00 04/27/25 09:00 04/27/25 09:00 04/27/25 09:00
Intake and Output
04/26/25 04/27/25 04/28/25
06:59 06:59 06:59
Intake Total 1350 / 1355 176 / 176 300 / 300
Output Total 3043 / 3243 2265 / 2465 710 / 710
Balance -1693 / -1888 -2089 / -2289 -410 / -410
SaO2 96
Nasal Cannula flow liters per 2
minute
Physical Exam
General: Respiratory Distress (negative), Comfortable, Chills (negative) and Sweats (negative)
HEENT: Normocephalic and Anicteric
Cardiovascular: S1-S2 and Peripheral Edema (negative)
Respiratory: Clear, Wheeze (negative), Crackles (negative), Rhonchi (negative) and Non-Labored Respirations
GI: Soft, Non Distended, Non Tender and Normal Bowel Sounds
Neurology: AO x 3 and Tremors (negative)
Skin: Warm, Dry, Cyanosis (negative), Jaundice (negative) and Other (Sutures on right lower extremity)
Labs/Micro/Reports
Lab Data
04/27/25 03:19
04/27/25 03:19
Laboratory Results
04/26/25 04/26/25 04/26/25
07:33 13:55 20:45
APTT Cancelled 51.9 H Cancelled
[2025-04-27] MEDS: PROTONIX 40 MG PO (12:58)
--- NOTE | 2025-04-27 13:00 | PTCARENOTE ---
Rec'd pt back via stretcher from US carotids, ECHO and MRI of the brain. Tolerated well. No complaints offered. Neuro check completed on arrival back into room- of note pt states to touch sensation is sl less on the R leg although able to fully move
leg. NIH completed and is a 1. Speech remains clear. Denies dizziness or headache. Smile is even. R leg incision is unchanged. Bashir intact. 4x4 dressing is D+I currently. Pulses unchanged. Currently oob in the chair. Used a walker an walked
fairly well with the walker. Call walker in reach
--- NOTE | 2025-04-27 13:45 | PTCARENOTE ---
Dr. Cole in to see pt. Pt for likely carotid surgery tomorrow. Spoke with patient and daughters. Pt having more PAC's and some runs of what appears to be PAT with rates into the 130's but not sustained. HR mostly in the 80's. ECG done. Dr. Rios
aware. Pt currently remains resting oob in the chair. No complaints. Good appetite for lunch. Call walker in reach.
--- NOTE | 2025-04-27 14:19 | CM ---
Patient seen at bedside today in ICU with physicians. Patient for possible surgery and pending MRI. Patient plan continues to be home with VN, however, patient PT/OT recommendations pending. CM will continue to follow for discharge planning needs.
Plan; home with VN vs SNF; pending medical treatment plan
--- NOTE | 2025-04-27 14:20 | PTCARENOTE ---
Was sitting oob in the chair at 1405 and daughter came out to the nurses station stating that he was c/o pins and needles in his legs (both legs) states it just started. Had pt get back in bed and once in bed states it feels better- essentially
gone. Pulses are unchanged. L leg is sl cooler than the R but able to move both legs. R leg incision is unchanged. Continues to have PAC's and bursts of what appears to be PAT into the 140-150 range but self limiting. Will update vascular surgery
[2025-04-27] MEDS: FLUSH (NSS) 1 FLUSH IV (15:42)
[2025-04-27] MEDS: THIAMINE INJECTION 100 MG IV (15:46)
--- NOTE | 2025-04-27 16:00 | PTCARENOTE ---
Assessment overall is unchanged. Did work with PT and when he stood initially with PT felt dizzy and BP dipped to 97 syst. Sat back down on the side of the bed when Bp improved and symptoms resolved walked in room and to hallway with a walker and
PT. Currently resting back in bed. Denies pain. Admits to R lower leg still with some 'numbness', decreased sensation but no 'pins and needles' feeling and can move legs bilaterally. Pulses unchanged. Bilat PT and DP pulses with the doppler. R leg
with +1 edema. R upper and lower leg incisions with ramiro intact- does continue to have a serosang ooze near the R thigh MYRON. Skin care given. R leg is warm, L leg is sl cooler than the R. VS as documented. Tolerating RA with sats of 96%. Admits he
feels constipated- Medicated a currently with Miralax. Voiding yellow urine. Daughter at the bedside and aware of plan of care. Labs sent as ordered. Call walker in reach.
[2025-04-27] MEDS: MIRALAX 17 GRAMS PO (16:08)
[2025-04-27 17:22] LABS: Vitamin B12 623 pg/ml (239-931)
--- NOTE | 2025-04-27 17:55 | PTCARENOTE ---
Excellent appetite for dinner. No changes in assessment
--- NOTE | 2025-04-27 20:00 | PTCARENOTE ---
Rec'd pt resting in bed, cooperative, follows commands, NIH done w/ offgoing RN - slight decr sensation R lower leg, SAVI at 3mm, SR w/ freq PAC's bp stable, R distal pulses via doppler, R mid leg dsg changed for SES drainage, R MYRON w/ sang drainage,
RA, lungs decr in bases, sat 98, enc to use IS- reaches 2000, + bowel sounds, abd soft, no n/v voids in urinal
[2025-04-28] VITALS (20 sets, daily range): BP systolic 91–147; BP diastolic 42–96; PULSE 99; BMI 25.2
--- NOTE | 2025-04-28 00:24 | PTCARENOTE ---
Addendum entered by Massiel Meza RN 04/28/25 00:27:
pt npo for OR
Original Note:
sys reviewed, changes noted, CHG bath done, linens changed
[2025-04-28 03:56] LABS: Hemoglobin 9.1 g/dL (13.0-18.0); Mean Corp Hgb Conc. 36.4 g/dL (33.0-37.0); Mean Corpuscular Hgb 33.1 pg (27.0-31.0); Mean Corpuscular Volume 90.9 fL (80.0-94.0); Mean Platelet Volume 11.9 fL (7.4-10.4); Platelet Count 221 10^3/uL (130-400); Red Blood Cell Count 2.75 10^6/uL (4.70-6.10); Red Cell Dist. Width 14.5 % (11.5-14.5); White Blood Cell Count 10.1 10^3/uL (4.8-10.8)
--- NOTE | 2025-04-28 03:59 | PTCARENOTE ---
sys reviewed, changes noted
[2025-04-28 04:19] LABS: ALT (SGPT) 22 U/L (0-50); AST (SGOT) 29 U/L (17-59); Albumin 3.4 g/dl (3.5-5.0); Alkaline Phosphatase 81 U/L (38-126); Blood Urea Nitrogen 36 mg/dl (9-20); Calcium 9.2 mg/dl (8.4-10.2); Carbon Dioxide 19 mmol/L (22-30); Chloride 106 mmol/L (98-107); Estimated Creatinine Clearance 24 ml/min; Glucose 100 mg/dl (70-99); Magnesium 1.9 mg/dl (1.6-2.3); Potassium 4.3 mmol/L (3.5-5.1); Sodium 132 mmol/L (135-145); Total Bilirubin 0.5 mg/dl (0.2-1.3); Total Protein 5.6 g/dl (6.3-8.2); eGFR 30.66
--- NOTE | 2025-04-28 06:40 | W.PN.HOSP.TC ---
Addendum entered and electronically signed by Harriet Keane MD 04/28/25 16:15:
I saw and evaluated the patient independently. I reviewed the resident�s note and agree with findings and plan as documented by Dr. Payne.
GENERAL: well developed, well nourished, male in no apparent distress--tearful over 's passing last month
HEENT: NC/AT
HEART: regular rate and rhythm, +S1, +S2
LUNGS : clear to auscultation bilaterally
ABDOM: soft, nontender, nondistended, + bowel sounds
EXT: no cyanosis, clubbing, or edema--ramiro and drain in right leg--bruising noted
NEUROLOGIC: grossly intact but have concerns over memory/cognition
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
abnormality--CTA head/neck(04/26/2025) 65% L ICA and <50% R ICA stenoses--Carotid ultrasound�left�large volume soft plaque in the proximal internal carotid artery, 50-69% ICA stenosis--Right�less than 50% ICA stenosis--Echo with preserved EF, stage
1 diastolic dysfunction--valvular disease also noted--apprec neuro/vascular--cont asa, thiamine--plan on endarterectomy on left carotid now cancelled since stroke on right side and carotid stenosis left side (does not match clinically)--cards
consulted for PARKER but also no need as cards saw afib on his monitor and recommend anticoagulation regardless--vascular and neuro in agreement with plan
Peripheral arterial disease/Thrombosed right popliteal artery--04/24 s/p femoral to anterior tibial bypass--Heparin drip discontinued after TIA symptoms yesterday--cont asa--apprec vascular--further rec as per them
Anemia--Likely secondary to blood loss or anemia of chronic disease--Developed some bleeding from the RLE incisional site with signs of hematoma as of morning 04/25--Bleeding resolved, no signs of worsening hematoma, hemoglobin 9.1 down from 13
earlier in stay--Continue to trend CBC, hemoglobin goal >7
Metabolic acidosis--Normal anion gap metabolic acidosis�anion gap 6--Likely ischemic versus renal--DC'd bicarb drip, continue oral bicarb
CKD stage 3a--Creatinine�2.0--CT evidence of high-grade stenosis of right renal artery might be a contributing factor--Hold losartan--consider renal consult--Continue oral bicarb
Essential hypertension--Atenolol on hold, telemetry monitoring showed prolonged QT�501--EKG�sinus rhythm with PACs--Hold losartan
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
DVT proph�subcu heparin
code status-- DNR
disposition--PT/OT--d/c planning
Original Note:
Today's Communication/Plan
-
Start Eliquis 2.5 mg twice daily
Start Toprol 12.5 mg
Assessment / Plan
Assessment / Plan
Assessment / Plan
Impression
85-year-old male admitted for management of thrombosed right popliteal artery.
Plan
# Acute CVA
Likely due to ischemic infarct in superior right frontal lobe versus TIA from left ICA stenosis versus embolic source.
MRI brain-3.3 mm acute ischemic infarct in the subcortical white matter of superior right frontal lobe
Symptoms do not correlate as patient developed right-sided facial droop with slurred speech and expressive aphasia.
Neurology on board
vascular surgery on board
As per neurology, there might be embolic source
TTE- preserved EF, stage 1 diastolic dysfunction
Cardiology consulted, indication for PARKER?? >>> Recommended to anticoagulate for paroxysmal A-fib
No indication for PARKER at this point, as this will not change treatment
After discussion with cardiology, neurology and vascular�Left carotid plaque very unlikely to be responsible for these MRI findings
Plan for left carotid endarterectomy today was held
Patient started on Eliquis 2.[address] head�no acute intracranial abnormality
CTA head/neck(04/26/2025) 65% L ICA and <50% R ICA stenoses.
Carotid ultrasound�left�large volume soft plaque in the proximal internal carotid artery, 50-69% ICA stenosis
Right�less than 50% ICA stenosis
Continue neurovascular checks, NIHSS
Vitamin B12, folate�WNL
Continue IV thiamine
Continue aspirin 81 mg
Check SPEP
Patient is emotionally labile, chronic periventricular white matter infarcts in the frontal lobe might be contributing (as evidenced in MRI)
#Paroxysmal A-fib
Telemetry review with PACs and runs of paroxysmal A-fib
History of paroxysmal A-fib in June 2023 (at the time of EVAR)
MRI with bihemispheric strokes
[id number] score- 6
Will start Eliquis 2.5 mg twice daily
Start Toprol 12.5 mg twice daily, amiodarone as an alternative if patient not able to tolerate.
#Peripheral arterial disease
#Thrombosed right popliteal artery
POD #4, s/p femoral to anterior tibial bypass
Heparin drip discontinued after TIA symptoms yesterday
Continue aspirin 81 mg
Palpable pulses, good lower extremity perfusion postoperatively
Continue vascular checks
Continue to monitor MYRON drain output
Vascular surgery on board
Plan for left carotid endarterectomy today was held
#Anemia
Likely secondary to blood loss or anemia of chronic disease
Developed some bleeding from the RLE incisional site with signs of hematoma as of morning 04/25
Bleeding resolved, no signs of worsening hematoma, hemoglobin 9.1
Continue to trend CBC, hemoglobin goal >7
Will transfuse if less than 7
#Metabolic acidosis
Normal anion gap metabolic acidosis
Likely ischemic versus renal
continue oral bicarb
Monitor BMP
# CKD
Creatinine�2.[address] evidence of high-grade stenosis of right renal artery might be a contributing factor
Hold losartan
Continue oral bicarb
Monitor BMP
# Essential hypertension
Atenolol on hold, telemetry monitoring showed prolonged QT�501.
EKG�sinus rhythm with PACs
Start Toprol 12.5 mg
#ASCVD
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
#DVT prophylaxis�Eliquis
Low-cholesterol diet
CODE STATUS�DNR
Anticipated Discharge: 24 - 48 hours
Subjective/Interval History
-
Date of Service: April 28, 2025
No acute overnight events.
Objective Data
-
Labs:
Laboratory Results
04/28/25
03:40
WBC 10.1
Hgb 9.1 L
Hct 25.0 L
Plt Count 221
Sodium 132 L
Potassium 4.3
Chloride 106
Carbon Dioxide 19 L
BUN 36 H
Creatinine 2.1 H
Glucose 100 H
Calcium 9.2
Total Bilirubin 0.5
AST 29
ALT 22
Alkaline Phosphatase 81
Vital Signs:
Vital Signs
Temp Pulse Resp BP Pulse Ox
98.3 F 78 15 141/96 95
04/28/25 03:02 04/28/25 06:00 04/28/25 06:00 04/28/25 06:00 04/28/25 06:00
I&O
04/26/25 04/27/25 04/28/25
06:59 06:59 06:59
Intake Total 1350 / 1355 176 / 176 800 / 800
Output Total 3043 / 3243 2265 / 2465 1685 / 1685
Balance -1693 / -1888 -2089 / -2289 -885 / -885
Physical Exam
-
General: Well Developed, Well Nourished and No Apparent Distress
HEENT: Normocephalic and Atraumatic
Respiratory: Clear to Auscultation
Cardiac: S1/S2 and Irregular Rhythm
GI: Soft, Nontender, Nondistended and Normal Bowel Sounds
Musculoskeletal: Other (Surgical incision with ramiro on the right lateral aspect of the calf. C/D/I, MYRON drain with sanguinous output, dorsalis pedis pulse +, neurovasculature intact)
Skin: Warm and Dry
Neuro: Awake, Alert, Oriented, AO x 3 and Nonfocal/Grossly Intact
Psych: Calm
[2025-04-28] MEDS: ASPIR LOW (ENTERIC COATED) 81 MG PO (08:27)
[2025-04-28] MEDS: SODIUM BICARBONATE 650 MG PO ×3 (08:28→21:14)
[2025-04-28] MEDS: HEPARIN 5000 UNITS SC (08:28)
[2025-04-28] MEDS: THIAMINE INJECTION 100 MG IV (08:28)
[2025-04-28] MEDS: PERIDEX 0.12% ORAL RINSE 15 ML PO (08:48)
[2025-04-28] MEDS: BACTROBAN 2% OINTMENT 1 APPLIC NASAL (08:48)
--- NOTE | 2025-04-28 08:56 | PTCARENOTE ---
report received, assessments per work list. pre op care given. awaiting OR
--- NOTE | 2025-04-28 10:17 | CM ---
Patient seen at bedside today in ICU with physicians. Patient for possible surgery today pending discussion with physicians. Patient plan continues to be home with VN, however, patient PT/OT recommendations pending. CM will continue to follow for
discharge planning needs.
Plan; home with VN vs SNF; pending medical treatment plan
--- NOTE | 2025-04-28 10:27 | CON.CAR ---
Addendum entered and electronically signed by Lamont Sehpherd DO 04/28/25 16:32:
I saw and examined the patient.
The Implementation Project Coordinator's note was reviewed and I agree with the note.
Comment:
Plan:
Patient presented 04/20/2025 with right foot pain, critical limb ischemia and underwent successful right superficial femoral artery to anterior tibial artery bypass using ipsilateral nonreversed great saphenous vein with balloon angioplasty of the
right dorsalis pedis artery + right anterior tibial artery 04/24/[address] Cole.
Found to have right facial droop and expressive aphasia on 04/26/2025 prompting stroke alert. Patient was found to have tiny acute right frontal acute stroke on MRI 04/27/2025. Patient was also noted to have old strokes of other distribution
including bilateral frontal lobes and chronic infarcts in left cerebral hemisphere. Fortunately neurologic symptoms resolved without deficit.
Patient was noted to have 50 to 69% left ICA stenosis on CTA of head and neck and vascular ultrasound. It was felt that patient's stroke symptoms and MRI findings were not consistent with carotid disease.
Cardiology was initially consulted for PARKER. Upon review of telemetry the patient was found to have paroxysmal atrial tachycardia/fibrillation.
Given evidence of atrial tachycardia/fibrillation and recent CVA he would be candidate for anticoagulation. Reviewed with vascular and patient is acceptable for Eliquis. Patient has significantly elevated [id number] score.
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
Will add beta-marci with parameters for rate control. Outpatient monitor to assess for A-fib burden.
Echo 04/27/2025 showed preserved ejection fraction with mild MR and mild to moderate AI.
Outpt follow up with Dr Malone.
Discussed with patient and family at bedside, nursing, neurology, vascular.
Original Note:
Consultation
Consultation Request
Date/Time Consultation Requested: 04/28/2025
Date/Time Consultation Performed: 04/28/2025
Requesting Provider: Dr. Rizo
Performing Provider: Cheryl Taylor PA-C for Dr. Lamont Shepherd
Reason for Consultation: Arrhythmia, new stroke
Medical History
-
History of Present Illness:
85-year-old male with a past medical history of bilateral popliteal artery aneurysm, infrarenal AAA with EVAR 06/2023, PAD, history of prostate cancer, hypertension, hypercholesterolemia, and history of non-Hodgkin's lymphoma who presented with a
severe right lower extremity/foot pain. Patient was seen at vascular surgery office on 04/20/2025 and was found to have thrombosed right popliteal artery aneurysm with critical limb threatening ischemia, sent into the hospital by vascular surgery,
Dr. Cole. CTA abdominal aorta with runoff on 04/22/2025 showed a 2.3 cm right popliteal artery aneurysm with occlusion of the distal right sided SFA and popliteal artery. Also an aneurysm of the left popliteal artery measuring 1.5 cm with no
occlusion of the left popliteal aneurysm. There was also 50-75% stenosis of the origin of the celiac axis and high-grade stenosis near the origin of the right renal artery (>75%). On 04/24/2025 he underwent right superficial femoral artery to
anterior tibial artery bypass using ipsilateral nonreversed great saphenous vein, as well as balloon angioplasty of both the right DP + AT arteries. OM 04/26/2025 patient had witnessed right facial droop and expressive aphasia prompting a stroke
alert. Head CT showed no acute intracranial abnormality. CTA of head and neck demonstrated approximately 65% left carotid stenosis and less than 50% right carotid stenosis. There was significant intracranial stenosis or dissection. Vascular
ultrasound 616 demonstrated mild calcified plaque in right ICA and left ICA of 50 to 69% stenosis. Patient underwent MRI of brain which demonstrated tiny 3.3 mm acute ischemic infarct in right frontal lobe as well as small chronic periventricular
white matter infarcts in both frontal lobes, chronic infarcts in left cerebral hemisphere. After discussion with neurology and vascular surgery it was felt that patient's stroke was unlikely secondary to carotid stenosis as it did not clinically
correlate with area of stroke. Cardiology being asked to see patient for concerns of arrhythmia and possible PARKER. Upon reviewing prior records patient did have brief postoperative atrial fibrillation following EVAR procedure in June 2023. He
follows with Dr. Malone for routine cardiology care and wore an outpatient monitor in August 2020 for which demonstrated frequent PACs representing 15% of QRS complexes and frequent runs of paroxysmal atrial tachycardia longest 43 seconds. Patient
was not on anticoagulation as outpatient. Upon review of telemetry during this admission patient is noted to have runs of paroxysmal atrial tachycardia and brief runs of paroxysmal atrial fibrillation.
PMH:
History of bradycardia on atenolol
Frequent PACs, PAT
Paroxysmal atrial fibrillation postop June 2023
Bihemispheric strokes on imaging April 2025
AAA status post EVAR 07/01/2023
History of prostate cancer status post radiation
Retroperitoneal lymphadenopathy noted on recent CT scan
Hypertension
hyperlipidemia
CKD
Esophageal dysmotility status post dilatation
Statin intolerance
History of splenectomy secondary to trauma
Past Medical History
Past Medical History: Other (in HPI)
Past Surgical History: Other (Splenectomy secondary to trauma, EVAR 07/01/2023, vasectomy, hernia repair, s/p right superficial femoral artery to anterior tibial artery bypass using ipsilateral nonreversed great saphenous vein with balloon
angioplasty of the right dorsalis pedis artery + right anterior tibial artery 04/2025)
Social History
Tobacco: Non-Smoker
Alcohol: Occasional
Drug: None
Personal: ( from [facility] in early 2024)
Living: With Family
Family History
Family History: CAD
Allergies / Home Medications
Allergy/AdvReac Type Severity Reaction Status Date / Time
No Known Allergies Allergy Verified 04/20/25 14:58
�Medication �Instructions �Recorded �Confirmed �Type
colestipol 1 gram tablet 1 g PO BID High Cholesterol 07/03/23 04/20/25 History
losartan 50 mg tablet 50 mg PO DAILY Blood Pressure 07/03/23 04/20/25 History
omeprazole 20 mg tablet,delayed 20 mg PO NOON Gastrointestinal 07/03/23 04/20/25 History
release Issue
zinc-magnesium aspart-vit B6 10 1 cap PO DAILY Supplement 07/03/23 04/20/25 History
mg-150 mg-3.83 mg capsule
omega 5-wrz-elq-fish oil 1,200 mg 1 cap PO DAILY Supplement ##0 09/06/23 04/20/25 History
(144 mg-216 mg) capsule (Fish Oil)
acetaminophen 500 mg tablet 1,000 mg PO Q6HPRN PRN mild pain 09/11/23 04/20/25 History
aspirin 81 mg tablet,delayed 81 mg PO HS Blood Clot 04/20/25 04/20/25 History
release Prevention/Tx
atenolol 25 mg tablet 25 mg PO DAILY Blood Pressure 04/20/25 04/20/25 History
Review of Systems
-
History Source: Patient
All other systems: Negative unless noted
Physical Exam
Vital Signs
Temp Pulse Resp BP Pulse Ox
98.3 F 89 11 140/85 98
04/28/25 08:00 04/28/25 10:00 04/28/25 10:00 04/28/25 10:00 04/28/25 10:00
GEN: No distress, awake, Ox3, lying in bed
HEENT: supple, anicteric, mmm
LUNGS: CTA, no wheezes/rales
CV: Reg with episodes of tachycardia, S1/S2, 1/6 syst murmur, no rub or gallop
ABD: soft, BS+, NT/ND
EXT: Right lower extremity with +1 edema, appears well-perfused with well-approximated incision from recent vascular surgery without hematoma or evidence of infection, left lower extremity, no edema, clubbing or cyanosis
NEURO: Gross non-focal
SKIN: No rash, warm, dry, pink
Lab Results
04/28/25 03:40
04/28/25 03:40
Impression / Plan
-
Primary Web Designer Developer: Dr. Arnel Malone
Impression:
Presented 04/20/2025 with right foot pain, critical limb ischemia
S/p right superficial femoral artery to anterior tibial artery bypass using ipsilateral nonreversed great saphenous vein with balloon angioplasty of the right dorsalis pedis artery + right anterior tibial artery 04/24/2025
Stroke alert/right frontal acute stroke
Paroxysmal atrial tachycardia/paroxysmal atrial fibrillation on telemetry
History of bradycardia on atenolol
Frequent PACs, PAT
Paroxysmal atrial fibrillation postop June 2023
Bihemispheric strokes on imaging April 2025
AAA status post EVAR 07/01/2023
History of prostate cancer status post radiation
Retroperitoneal lymphadenopathy noted on recent CT scan
Hypertension
hyperlipidemia
CKD
Esophageal dysmotility status post dilatation
Statin intolerance
History of splenectomy secondary to trauma
Echo 04/27/2025: TDS: EF 60 to 65%. Grade 1 diastolic dysfunction. Mild MR. Mild to moderate AI. Tricuspid and pulmonic valve not well-visualized.
ECHO 04/25/23: EF 55-60%, mild aortic sclerosis, mild AR
CTA of head and neck 04/26/25 demonstrated approximately 65% left carotid stenosis and less than 50% right carotid stenosis. There was significant intracranial stenosis or dissection.
Vascular ultrasound 04/27/25 demonstrated mild calcified plaque in right ICA and left ICA of 50 to 69% stenosis
MRI of brain 04/27/25: tiny 3.3 mm acute ischemic infarct in right frontal lobe as well as small chronic periventricular white matter infarcts in both frontal lobes, chronic infarcts in left cerebral hemisphere.
Lexiscan stress test 05/2023: EF normal, no signs of myocardial scar or ischemia
Plan:
Presented 04/20/2025 with right foot pain, critical limb ischemia and underwent successful right superficial femoral artery to anterior tibial artery bypass using ipsilateral nonreversed great saphenous vein with balloon angioplasty of the right
dorsalis pedis artery + right anterior tibial artery 04/24/[address] Cole
Found to have right facial droop and expressive aphasia on 04/26/2025 prompting stroke alert. Patient was found to have tiny acute right frontal acute stroke on MRI 04/27/2025. Patient was also noted to have old strokes of other distribution
including bilateral frontal lobes and chronic infarcts in left cerebral hemisphere. Fortunately neurologic symptoms resolved without deficit.
Echo 04/27/2025 showed preserved ejection fraction with mild MR and mild to moderate AI.
Patient was noted to have 50 to 69% left ICA stenosis on CTA of head and neck and vascular ultrasound. It was felt that patient's stroke symptoms and MRI findings were not consistent with carotid disease. Would continue aggressive medical
management including lipid-lowering agent.
Initially cardiology being asked to see patient for PARKER. However upon review of telemetry patient was found to have paroxysmal atrial tachycardia and runs of paroxysmal atrial fibrillation. Upon review of records patient also was noted to have
paroxysmal atrial fibrillation in June 2023 at time of his EVAR. However outpatient monitor following that admission did not show any significant atrial fibrillation. Given results of MRI with bihemispheric strokes would anticoagulate patient
indefinitely given elevated [id number] score 6 (he age +2, hypertension +1, stroke/thromboembolism history +2, PVD/PAD +1). Will hold off on PARKER at this time as this will not change treatment.
Discussed with vascular surgery okay to initiate Eliquis 2.5 mg twice a day
Paroxysmal atrial tachycardia and paroxysmal atrial fibrillation. Atenolol and losartan have been hold on hold secondary to intermittent hypotension. Will try low dose Toprol 12.5 mg BID with hold parameters. If unable to tolerate consider
Amiodarone as an alternative. Patient will likely need outpatient monitor to further assess if ongoing arrhythmia.
HPI 04/28/2025:
85-year-old male with a past medical history of bilateral popliteal artery aneurysm, infrarenal AAA with EVAR 06/2023, PAD, history of prostate cancer, hypertension, hypercholesterolemia, and history of non-Hodgkin's lymphoma who presented with a
severe right lower extremity/foot pain. Patient was seen at vascular surgery office on 04/20/2025 and was found to have thrombosed right popliteal artery aneurysm with critical limb threatening ischemia, sent into the hospital by vascular surgery,
Dr. Cole. CTA abdominal aorta with runoff on 04/22/2025 showed a 2.3 cm right popliteal artery aneurysm with occlusion of the distal right sided SFA and popliteal artery. Also an aneurysm of the left popliteal artery measuring 1.5 cm with no
occlusion of the left popliteal aneurysm. There was also 50-75% stenosis of the origin of the celiac axis and high-grade stenosis near the origin of the right renal artery (>75%). On 04/24/2025 he underwent right superficial femoral artery to
anterior tibial artery bypass using ipsilateral nonreversed great saphenous vein, as well as balloon angioplasty of both the right DP + AT arteries. OM 04/26/2025 patient had witnessed right facial droop and expressive aphasia prompting a stroke
alert. Head CT showed no acute intracranial abnormality. CTA of head and neck demonstrated approximately 65% left carotid stenosis and less than 50% right carotid stenosis. There was significant intracranial stenosis or dissection. Vascular
ultrasound 04/27 demonstrated mild calcified plaque in right ICA and left ICA of 50 to 69% stenosis. Patient underwent MRI of brain which demonstrated tiny 3.3 mm acute ischemic infarct in right frontal lobe as well as small chronic periventricular
white matter infarcts in both frontal lobes, chronic infarcts in left cerebral hemisphere. After discussion with neurology and vascular surgery it was felt that patient's stroke was unlikely secondary to carotid stenosis as it did not clinically
correlate with area of stroke. Cardiology being asked to see patient for concerns of arrhythmia and possible PARKER. Upon reviewing prior records patient did have brief postoperative atrial fibrillation following EVAR procedure in June 2023. He
follows with Dr. Malone for routine cardiology care and wore an outpatient monitor in August 2020 for which demonstrated frequent PACs representing 15% of QRS complexes and frequent runs of paroxysmal atrial tachycardia longest 43 seconds. Patient
was not on anticoagulation as outpatient. Upon review of telemetry during this admission patient is noted to have runs of paroxysmal atrial tachycardia and brief runs of paroxysmal atrial fibrillation.
Data Reviewed
-
EKG: Report Reviewed by me, Discussed with Physician, Discussed with Nurse, Discussed with Patient and Discussed with Family
Ultrasound: Report Reviewed by me, Discussed with Physician, Discussed with Patient and Discussed with Family
MRI: Report Reviewed by me, Discussed with Physician, Discussed with Patient and Discussed with Family
Medical Tests (Nuc Med, Echo etc): Report Reviewed by me, Discussed with Physician, Discussed with Patient and Discussed with Family
Labs: Labs Reviewed by me, Discussed with Physician, Discussed with Patient and Discussed with Family
Old Records: Reviewed
--- NOTE | 2025-04-28 11:17 | W.PN.UPDATE ---
Update Note
Progress Note Update
Pt comfortable and without complaints this Am
Family at bedside
Yesterday afternoon with several episodes of intermittent tachycardia
MRI revealed Right sided acute infarct but no evidence of left hemisphere acute change:
IMPRESSION:
1. Tiny 3.3 mm ACUTE ISCHEMIC INFARCT in the subcortical white matter of the SUPERIOR RIGHT FRONTAL LOBE.
2. Small chronic periventricular white matter infarcts in both frontal lobes.
3. Small chronic ischemic infarct in the left cerebellar hemisphere.
4. Moderate white matter leukoaraiosis in the frontal lobes.
5. Mild to moderate diffuse cerebral volume loss.
6. SEVERE RIGHT MAXILLARY SINUSITIS.
7. Mild multilevel cervical spinal cord compression and central canal stenosis.
He has a palpable graft pulse on the right
MYRON serosang
Incisions clean/dry
Discussed with neurology and cardiology. ? of cardioembolic source given the MRI findings. Left carotid plaque very unlikely to be responsible for these MRI findings.
-Hold off on CEA plan for today
-Cardiology/neuro input today
-OK with anticoagulation if neuro agrees
-Discussed plan with patient and family who was at bedside
-Will follow
PJF3
[facility] Vascular Surgery
--- NOTE | 2025-04-28 11:43 | W.PN.INTV ---
Today's Communication / Plan
Recommendations
An appointment reviewed continue postoperative care
Continue with neurochecks
Neurology/cardiology to decide on whether embolic disease should be evaluated.
Carotid endarterectomy on hold
Assessment
-
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
presented with a severe right lower extremity/foot pain, sent into the hospital by vascular surgery, Dr. Cole. Patient known to the vascular surgery service with last visit on 04/20/[address] Cole. Patient has a known thrombosed right
popliteal artery aneurysm. Patient has been having right foot pain with critical limb threatening ischemia. Patient was recommended on 04/20/2025 to go to the ER immediately. CTA abdominal aorta with runoff on 04/22/2025 showed a 2.3 cm right
popliteal artery aneurysm with occlusion of the distal right sided SFA and popliteal artery. Also an aneurysm of the left popliteal artery measuring 1.5 cm with no occlusion of the left popliteal aneurysm. There was also 50-75% stenosis of the
origin of the celiac axis and high-grade stenosis near the origin of the right renal artery (>75%). Patient was recommended to have a right lower extremity vascular intervention which the patient consented to. On 04/24/2025, he obtained a right
superficial femoral artery to anterior tibial artery bypass using ipsilateral nonreversed great saphenous vein, as well as balloon angioplasty of both the right DP + AT arteries. Patient was transferred to the ICU postoperatively and respiratory therapy assistant
services consulted for additional management/recommendations.
Chronic conditions [employer]: History of prostate cancer, hypertension, hypercholesterolemia, ED, AAA, PAD, non-Hodgkin's lymphoma
Impression:
#Right popliteal artery aneurysm thrombosis with limb threatening ischemia s/p right superficial femoral artery to anterior tibial artery bypass using ipsilateral nonreversed great saphenous vein with balloon angioplasty of the right dorsalis pedis
artery + right anterior tibial artery
# TIA-carotid disease found during this hospital stay-left greater than right.
#Anemia
#GLORIA on CKD (baseline creatinine approximately 1.3)
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
#Mild coronary arterial calcification (per CTA abdominal aorta with runoff on 04/22/2025)
#Former alcohol abuse, now with 3 alcoholic beverages per week
Plan:
-
Possible TIA/CVA-yesterday afternoon 04/26/2025 with slurred speech-facial droop.
Symptoms resolved 04/27/2025.
This morning neurologically intact.
CT head and neck imaging unremarkable.
Atherosclerotic plaque within the carotid arterial system bilaterally most prominent involving the proximal internal carotid arteries bilaterally, left (approximate 65% stenosis) greater than right (less than 50% stenosis without hemodynamically
significant stenosis.
No findings to suggest internal carotid artery or vertebral artery dissection bilaterally. Mildly dominant right vertebral artery.
MRI revealed Right sided acute infarct but no evidence of left hemisphere acute change:
IMPRESSION:
1. Tiny 3.3 mm ACUTE ISCHEMIC INFARCT in the subcortical white matter of the SUPERIOR RIGHT FRONTAL LOBE.
2. Small chronic periventricular white matter infarcts in both frontal lobes.
3. Small chronic ischemic infarct in the left cerebellar hemisphere.
4. Moderate white matter leukoaraiosis in the frontal lobes.
5. Mild to moderate diffuse cerebral volume loss.
6. SEVERE RIGHT MAXILLARY SINUSITIS.
7. Mild multilevel cervical spinal cord compression and central canal stenosis.
Neurology following-given above MRI findings. Unlikely left carotic disease is the reason for his acute stroke.
Embolic disease being contemplated
Cardiology has been consulted
-
Vascular correspondence reviewed
Continue with postoperative care for right lower extremity.
Pulses palpable on the right. Distal extremities warm
Eventually restart anticoagulation once cleared by neurology
Antiplatelet
-
Incentive spirometry encouraged 10x per hour for at least 4 hrs a day
Aspiration precautions
Pain control
Neuro and vascular checks per protocol
Continue to increase physical activity as tolerated.
DVT prophylaxis
Code status: DNR/DNI
Will wait for final decision regarding embolic disease evaluation.
Carotic endarterectomy on hold
From my perspective okay to transfer to telemetry. We will final decision this afternoon.
Subjective Dataa
Subjective Data
Date of Service:
Date of Service: April 28, 2025
Chief Complaint: Veterinary Surgeon Follow Up
Subjective:
Patient offers no new complaints this morning.
Denies headache or blurry vision
Denies slurred speech
Denies lower extremity pain
Review of Systems
Cardiopulmonary: Dyspnea (None at breast)
Neuro: Headache (n), Dizziness (n), Numbness (n) and Weakness (n)
Objective Data
Data Reviewed
Vital Signs / I&O / Oxygen:
Vital Signs
Temp Pulse Resp BP Pulse Ox
97.8 F 89 11 140/85 98
04/28/25 11:26 04/28/25 10:00 04/28/25 10:00 04/28/25 10:00 04/28/25 10:00
Intake and Output
04/27/25 04/28/25 04/29/25
06:59 06:59 06:59
Intake Total 176 / 176 800 / 800
Output Total 2265 / 2465 1685 / 1685 600 / 600
Balance -2089 / -2289 -885 / -885 -600 / -600
SaO2 98
Nasal Cannula flow liters per 96
minute
Physical Exam
General: Respiratory Distress (negative), Comfortable, Chills (negative) and Sweats (negative)
HEENT: Normocephalic and Anicteric
Cardiovascular: S1-S2 and Peripheral Edema (negative)
Respiratory: Clear, Wheeze (negative), Crackles (negative), Rhonchi (negative) and Non-Labored Respirations
GI: Soft, Non Distended, Non Tender and Normal Bowel Sounds
Neurology: AO x 3 and Tremors (negative)
Skin: Warm, Dry, Cyanosis (negative), Jaundice (negative) and Other (Sutures on right lower extremity)
Labs/Micro/Reports
Lab Data
04/28/25 03:40
04/28/25 03:40
[2025-04-28] MEDS: ELIQUIS 2.5 MG PO ×2 (11:53→21:13)
[2025-04-28] MEDS: PROTONIX 40 MG PO (11:54)
[2025-04-28] MEDS: MIRALAX 17 GRAMS PO (12:03)
--- NOTE | 2025-04-28 12:10 | PTCARENOTE ---
Addendum entered by Lisy Peterson RN 04/28/25 16:17:
patient transfer to [address] [place] [address] with all belongings. hand off NIH and pulse checks completed. no changes at time of transfer@1515
Original Note:
preassessed. OR and PARKER canceled. diet ordered. assisted to chair. PT/OT at bedside. patient ambulated in hallway. patient heart rate up to 160's.PAT. became dizzy. assisted back to chair, blood pressures as documented. ptient at rest, recovered
blood pressure, heart rate 90's. Dr Shepherd updated by tiger text. orders pending
[2025-04-28] MEDS: TOPROL XL 12.5 MG PO ×2 (14:32→21:13)
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
--- NOTE | 2025-04-28 15:30 | PTOTSP ---
Speech Language Pathology
Pt seen for speech/language evaluations. No dysarthria/dysphonia noted. Language evaluated via the Quick Aphasia Battery (QAB), form 1. Pt with an overall score of 9.78, indicative of skills WFL. All subtests WFL.
Further CHILDCARE DIRECTOR services not indicated. Please reconsult as indicated.
[2025-04-29] VITALS (9 sets, daily range): BP systolic 85–141; BP diastolic 27–89; PULSE 40–69; O2SAT 86–99
--- NOTE | 2025-04-29 05:10 | PTCARENOTE ---
MYRON patent with large clot in bulb, unable to to extract. 30ml sanguineous output @ this time since beginning of shift.
--- NOTE | 2025-04-29 05:14 | DOWNTIME ---
Addendum entered by Amber Tomlinson RN 04/29/25 14:07:
Correction to downtime 04/29/2025 from 0100 to 04/29/25 at 0415.
Original Note:
There was a [employer] Client Paginator Downtime on 04/28/2025 from 0100 to 04/29/2025 at 0415. Downtime documentation of patient's care, including medication administrations, has been reconciled in the electronic record per guidelines. Refer to the
patient's paper chart under the miscellaneous tab to see printed paper medication records and downtime forms.
[2025-04-29 06:34] LABS: % Basophils 0.7 % (0-2); % Eosinophils 4.6 % (0-6); % Immature Granulocytes 1.5 % (0-0.5); % Lymphocytes 19.1 % (20.5-51.1); % Monocytes 11.2 % (1.7-9.3); % Neutrophils 62.9 % (42.2-75.2); Absolute Basophils 0.1 10^3/uL (0-0.2); Absolute Eosinophils 0.4 10^3/uL (0-0.7); Absolute Immature Granulocytes 0.1 10^3/uL (0-0.05); Absolute Lymphocytes 1.7 10^3/uL (1.2-3.4); Absolute Neutrophils 5.7 10^3/uL (1.4-6.5); Hematocrit 27.3 % (39.0-52.0); Hemoglobin 9.4 g/dL (13.0-18.0); Mean Corp Hgb Conc. 34.4 g/dL (33.0-37.0); Mean Corpuscular Hgb 32.2 pg (27.0-31.0); Mean Corpuscular Volume 93.5 fL (80.0-94.0); Mean Platelet Volume 11.4 fL (7.4-10.4); Nucleated Red Blood Cells % 0.4 % (-); Platelet Count 281 10^3/uL (130-400); Red Blood Cell Count 2.92 10^6/uL (4.70-6.10); Red Cell Dist. Width 14.7 % (11.5-14.5); White Blood Cell Count 9.1 10^3/uL (4.8-10.8)
[2025-04-29 07:00] LABS: Total Bilirubin 0.9 mg/dl (0.2-1.3)
[2025-04-29 07:01] LABS: ALT (SGPT) 22 U/L (0-50); AST (SGOT) 25 U/L (17-59); Albumin 3.6 g/dl (3.5-5.0); Alkaline Phosphatase 79 U/L (38-126); Blood Urea Nitrogen 36 mg/dl (9-20); Calcium 9.2 mg/dl (8.4-10.2); Carbon Dioxide 21 mmol/L (22-30); Chloride 105 mmol/L (98-107); Estimated Creatinine Clearance 20 ml/min; Glucose 101 mg/dl (70-99); Potassium 4.5 mmol/L (3.5-5.1); Sodium 131 mmol/L (135-145); Total Protein 5.9 g/dl (6.3-8.2); eGFR 24.87
--- NOTE | 2025-04-29 08:10 | W.PN.VS ---
Addendum entered and electronically signed by Anirudh Locke MD 04/29/25 15:48:
Seen and examined with S[employer]IOR [facility] SQL DEVELOPER. Agree with findings as noted below. Incisions all clean dry and intact right lower extremity. Good graft function. Plan/as discussed and noted below.
Original Note:
Today's Communication / Plan
-
Plan reviewed with attending, see below.
Assessment/Plan
-
s/p bypass
- Oral anticoagulation initiated, hemoglobin remained stable
- Continue PT/OT
-Continue neurovascular checks
- Appreciate senior professional services consultant recommendations
Subjective Data
-
Date of Service: April 29, 2025
Patient seen and examined at bedside, offers no complaints. Denies nausea, vomiting, fever, chills, aphasia, unilateral weakness, and vision changes. Reports well-managed postoperative pain. Endorses continued improvement in surgical discomfort
and limited movement due to surgical discomfort at right lower extremity. Eager for next steps towards discharge.
Objective Data
-
Vital Signs
Temp Pulse Resp BP Pulse Ox
98.3 F 62 20 127/75 99
04/29/25 03:00 04/29/25 03:00 04/29/25 05:13 04/29/25 03:00 04/29/25 05:13
Intake and Output
04/28/25 04/29/25 04/30/25
06:59 06:59 06:59
Intake Total 800 / 800 1200 / 1200
Output Total 1685 / 1685 1605 / 1605
Balance -885 / -885 -405 / -405
Intake:
Oral fluids 800 / 800 1200 / 1200
Output:
Drain Output (Total) 35 / 35 105 / 105
Right Middle Leg Bobby-Heath 35 / 35 105 / 105
Urine, Voided 1650 / 1650 1500 / 1500
Lab Results
04/29/25 05:47
04/29/25 05:47
Calcium 9.2 mg/dl (8.4-10.2) 04/29/25 05:47
Magnesium 1.9 mg/dl (1.6-2.3) 04/28/25 03:40
Total Bilirubin 0.9 mg/dl (0.2-1.3) 04/29/25 05:47
AST 25 U/L (17-59) 04/29/25 05:47
ALT 22 U/L (0-50) 04/29/25 05:47
Alkaline Phosphatase 79 U/L (38-126) 04/29/25 05:47
Total Protein 5.9 g/dl (6.3-8.2) L 04/29/25 05:47
Albumin 3.6 g/dl (3.5-5.0) 04/29/25 05:47
Physical Exam
-
No apparent distress, resting in bed comfortably
No tachycardia
No dyspnea
Right lower extremity staple site CDI and well approximated, no signs of bleeding, calf soft, MYRON drain with minimal serosanguineous fluid
+ graft pulse
+ DP signal
Foot warm
[2025-04-29] MEDS: ELIQUIS 2.5 MG PO ×2 (08:19→20:55)
[2025-04-29] MEDS: SODIUM BICARBONATE 650 MG PO ×3 (08:19→20:55)
[2025-04-29] MEDS: THIAMINE INJECTION 100 MG IV (08:19)
[2025-04-29] MEDS: TOPROL XL 12.5 MG PO ×2 (08:19→20:55)
[2025-04-29] MEDS: FLUSH (NSS) 2 FLUSH IV (08:20)
[2025-04-29] MEDS: ASPIR LOW (ENTERIC COATED) 81 MG PO (08:22)
--- NOTE | 2025-04-29 10:11 | W.PN.HOSP.TC ---
Addendum entered and electronically signed by Harriet Keane MD 04/29/25 19:31:
I saw and evaluated the patient independently. I reviewed the resident�s note and agree with findings and plan as documented by Dr. Payne.
GENERAL: well developed, well nourished, male in no apparent distress
HEENT: NC/AT
HEART: regular rate and rhythm, +S1, +S2
LUNGS : clear to auscultation bilaterally
ABDOM: soft, nontender, nondistended, + bowel sounds
EXT: no cyanosis, clubbing, or edema--ramiro and drain in right leg--bruising noted
NEUROLOGIC: grossly intact but have concerns over memory/cognition
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
abnormality--CTA head/neck(04/26/2025) 65% L ICA and <50% R ICA stenoses--Carotid ultrasound left�large volume soft plaque in the proximal internal carotid artery, 50-69% ICA stenosis--Right less than 50% ICA stenosis--Echo with preserved EF, stage
1 diastolic dysfunction--valvular disease also noted--apprec neuro/vascular--cont asa, thiamine-- endarterectomy on left carotid cancelled since stroke on right side and carotid stenosis left side (does not match clinically)--cards consulted for PARKER
but also no need as cards saw afib on his monitor and recommend anticoagulation regardless--vascular and neuro in agreement with plan
Peripheral arterial disease/Thrombosed right popliteal artery--04/24 s/p femoral to anterior tibial bypass--Heparin drip discontinued after TIA symptoms--cont asa--apprec vascular--further rec as per them
Anemia--Likely secondary to blood loss or anemia of chronic disease--Developed some bleeding from the RLE incisional site with signs of hematoma as of morning 04/25--Bleeding resolved, no signs of worsening hematoma, hemoglobin 9.4 down from 13
earlier in stay--Continue to trend CBC, hemoglobin goal >7
Metabolic acidosis--Normal anion gap metabolic acidosis�anion gap 6--Likely ischemic versus renal--DC'd bicarb drip, continue oral bicarb
GLORIA on CKD stage 3a--Creatinine�2.5 (baseline 1.3)--CT evidence of high-grade stenosis of right renal artery might be a contributing factor--Hold losartan-- renal consult--Continue oral bicarb
Essential hypertension--Atenolol on hold, telemetry monitoring showed prolonged QT�501--EKG�sinus rhythm with PACs--Hold losartan
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
DVT proph�subcu heparin
code status-- DNR
disposition--PT/OT--d/c planning
Original Note:
Today's Communication/Plan
-
Continue Eliquis
Continue aspirin
Continue Toprol
Check UA
Continue sodium bicarb
Fluid restriction
Postvoid bladder scan
Assessment / Plan
Assessment / Plan
Assessment / Plan
Impression
85-year-old male admitted for management of thrombosed right popliteal artery.
Plan
# GLORIA/CKD stage IV
#Metabolic acidosis
Normal anion gap metabolic acidosis
Creatinine�2.[address] evidence of high-grade stenosis of right renal artery
Contrast exposures during vascular surgery/CT angiogram
Nephrology consulted
continue oral bicarb
Postvoid bladder scan
Check UA
No indication for acute dialysis
Hold losartan
Monitor BMP
#Hyponatremia
Fluid restriction
# Acute CVA
Likely due to ischemic infarct in superior right frontal lobe versus TIA from left ICA stenosis versus embolic source.
MRI brain-3.3 mm acute ischemic infarct in the subcortical white matter of superior right frontal lobe
Symptoms do not correlate as patient developed right-sided facial droop with slurred speech and expressive aphasia.
Neurology on board
vascular surgery on board
As per neurology, there might be embolic source
TTE- preserved EF, stage 1 diastolic dysfunction
Cardiology consulted, indication for PARKER?? >>> Recommended to anticoagulate for paroxysmal A-fib
No indication for PARKER at this point, as this will not change treatment
After discussion with cardiology, neurology and vascular�Left carotid plaque very unlikely to be responsible for these MRI findings
No further plans for carotid endarterectomy at this point as per vascular.
Patient started on Eliquis 2.5 mg twice daily, continue
CT head�no acute intracranial abnormality
CTA head/neck(04/26/2025) 65% L ICA and <50% R ICA stenoses.
Carotid ultrasound�left�large volume soft plaque in the proximal internal carotid artery, 50-69% ICA stenosis
Right�less than 50% ICA stenosis
Continue neurovascular checks, NIHSS
Continue aspirin 81 mg
Check SPEP
Patient is emotionally labile, chronic periventricular white matter infarcts in the frontal lobe might be contributing (as evidenced in MRI)
#Paroxysmal A-fib
Telemetry review with PACs and runs of paroxysmal A-fib
History of paroxysmal A-fib in June 2023 (at the time of EVAR)
MRI with bihemispheric strokes
[id number] score- 6
Continue Eliquis 2.5 mg twice daily
Continue Toprol 12.5 mg twice daily
#Peripheral arterial disease
#Thrombosed right popliteal artery
POD #5, s/p femoral to anterior tibial bypass
Heparin drip discontinued after TIA symptoms
Continue aspirin 81 mg
Palpable pulses, good lower extremity perfusion postoperatively
Continue vascular checks
Continue to monitor MYRON drain output
Vascular surgery on board, appreciate recs
#Anemia
Likely secondary to blood loss or anemia of chronic disease
Developed some bleeding from the RLE incisional site with signs of hematoma as of morning 04/25
Bleeding resolved, no signs of worsening hematoma, hemoglobin 9.1
Continue to trend CBC, hemoglobin goal >7
Will transfuse if less than 7
# Essential hypertension
Continue Toprol 12.5 mg
#ASCVD
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
#DVT prophylaxis�Eliquis
Low-cholesterol diet
CODE STATUS�DNR
Anticipated Discharge: 24 - 48 hours
Subjective/Interval History
-
Date of Service: April 29, 2025
Patient reports no chest pain, SOB, no palpitations. Minimal pain in the lower extremity at the incision site.
Objective Data
-
Labs:
Laboratory Results
04/29/25
05:47
WBC 9.1
Hgb 9.4 L
Hct 27.3 L
Plt Count 281 D
Sodium 131 L
Potassium 4.5
Chloride 105
Carbon Dioxide 21 L
BUN 36 H
Creatinine 2.5 H
Glucose 101 H
Calcium 9.2
Total Bilirubin 0.9
AST 25
ALT 22
Alkaline Phosphatase 79
Vital Signs:
Vital Signs
Temp Pulse Resp BP Pulse Ox
97.7 F 73 16 123/77 97
04/29/25 07:22 04/29/25 08:19 04/29/25 07:22 04/29/25 08:19 04/29/25 07:22
I&O
04/28/25 04/29/25 04/30/25
06:59 06:59 06:59
Intake Total 800 / 800 1200 / 1200
Output Total 1685 / 1685 1605 / 1605
Balance -885 / -885 -405 / -405
Review of Systems
-
All other systems: Reviewed and negative (Except as mentioned above)
Physical Exam
-
General: Well Developed, Well Nourished and No Apparent Distress
HEENT: Normocephalic, Atraumatic and Other (Left supraclavicular lipoma)
Respiratory: Clear to Auscultation
Cardiac: S1/S2 and Irregular Rhythm
GI: Soft, Nontender, Nondistended and Normal Bowel Sounds
Genito-urinary: No Costovertebral Tender
Musculoskeletal: Other (Surgical incision with ramiro on the right lateral aspect of the calf and saphenous vein graft site. C/D/I, MYRON drain with sanguinous output, dorsalis pedis pulse +, neurovasculature intact)
Skin: Warm and Dry
Neuro: Awake, Alert, Oriented, AO x 3 and Nonfocal/Grossly Intact; Negative Facial Droop
Psych: Calm
--- NOTE | 2025-04-29 11:04 | W.PN.CARDCBS ---
Addendum entered and electronically signed by Valente Laurent MD 04/29/25 13:09:
I saw and examined the patient.
The Accounts Payable Supervisor's note was reviewed and I agree with the note.
Comment: Briefly, 85-year-old man PMHx post-op AFib who presented for revascularization of his right lower extremity. Post-procedure he was identified as having acute stroke for which cardiology was consulted.
MRI of the brain 04/27/25 showed acute infarct as well as multiple chronic infarcts
Telemetry during this hospitalization shows frequent PACs, bursts of atrial tachycardia/flutter as well as an episode of atrial fibrillation
Given his history of AFib he has been started on Eliquis to reduce the risk of recurrent stroke. Would continue 2.5 mg twice daily going forward for age and renal function.
Started on low-dose metoprolol for rate control
He should follow-up with his primary pipe fitter supervisor, Dr. Malone
We will sign off. Please recall as needed.
Original Note:
Today's Communication / Plan
-
Continue Eliquis 2.5mg BID
HR and BP stable on Toprol 12.5mg BID
Follow up w/ primary pipe fitter supervisor
Impression / Plan
-
Primary Airplane Technician: Dr. Arnel Malone
Impression:
Presented w/ R foot pain, critical limb ischemia
s/p right superficial femoral artery to anterior tibial artery bypass using ipsilateral nonreversed great saphenous vein with balloon angioplasty of the right dorsalis pedis artery + right anterior tibial artery 04/24/2025
Stroke alert/right frontal acute stroke
Paroxysmal atrial tachycardia/paroxysmal atrial fibrillation on telemetry
h/o bradycardia on atenolol
h/o paroxysmal atrial fibrillation postop 06/2023
Bihemispheric strokes on imaging 04/2025
AAA s/p EVAR 07/01/2023
h/o prostate cancer status post radiation
Retroperitoneal lymphadenopathy noted on recent CT scan
Hypertension
Hyperlipidemia
CKD
Esophageal dysmotility s/p dilatation
Statin intolerance
h/o splenectomy secondary to trauma
CTA of head and neck 04/26/25 demonstrated approximately 65% left carotid stenosis and less than 50% right carotid stenosis. There was significant intracranial stenosis or dissection.
Vascular ultrasound 04/27/25 demonstrated mild calcified plaque in right ICA and left ICA of 50 to 69% stenosis
MRI of brain 04/27/25: tiny 3.3 mm acute ischemic infarct in right frontal lobe as well as small chronic periventricular white matter infarcts in both frontal lobes, chronic infarcts in left cerebral hemisphere.
Lexiscan stress test 05/2023: EF normal, no signs of myocardial scar or ischemia
Echo 04/25/2023: EF 55-60%, mild aortic sclerosis, mild AR
Echo 04/27/2025: TDS: EF 60 to 65%. Grade 1 diastolic dysfunction. Mild MR. Mild to moderate AI. Tricuspid and pulmonic valve not well-visualized.
Plan:
-Presented with R foot pain. Found to have critical limb ischemia and underwent R superficial femoral artery to anterior tibial artery bypass using ipsilateral nonreversed GSV w/ balloon angioplasty of the R dorsalis pedis artery and R anterior
tibial artery 04/24.
-Noted to have R facial droop and expressive aphasia 04/26, prompting stroke alert. Found to have tiny acute R frontal CVA on MRI 04/27 w/ evidence of prior b/l strokes. Neurologic symptoms resolved w/o deficit.
-Echo 04/27 showed preserved EF with mild to moderate AI as noted above. Initially there was consideration for PARKER, however on review of telemetry was noted to have frequent runs of PAT and PAF.
-Known h/o post-op Afib in 2022, however no recurrence noted as OP, so has not been on AC. Given acute CVA w/ recurrent afib this admission, now on AC with Eliquis 2.6mg BID (Age, creat 2.5). [id number] score 6.
-PARKER canceled as it would not currency exchange specialist at this time.
-Continue low dose Toprol 12.5mg BID. BP and HR stable. If hypotension noted, could consider amiodarone.
-L ICA stenosis noted by CTA of head/neck and US. Continue to follow as OP w/ vascular surgery.
-Statin intolerance noted, on colestipol. LDL 125.
-Follow up with primary pipe fitter supervisor.
HPI 04/28/2025: 85-year-old male with a past medical history of bilateral popliteal artery aneurysm, infrarenal AAA with EVAR 06/2023, PAD, history of prostate cancer, hypertension, hypercholesterolemia, and history of non-Hodgkin's lymphoma who
presented with a severe right lower extremity/foot pain. Patient was seen at vascular surgery office on 04/20/2025 and was found to have thrombosed right popliteal artery aneurysm with critical limb threatening ischemia, sent into the hospital by
vascular surgery, Dr. Cole. CTA abdominal aorta with runoff on 04/22/2025 showed a 2.3 cm right popliteal artery aneurysm with occlusion of the distal right sided SFA and popliteal artery. Also an aneurysm of the left popliteal artery measuring
1.5 cm with no occlusion of the left popliteal aneurysm. There was also 50-75% stenosis of the origin of the celiac axis and high-grade stenosis near the origin of the right renal artery (>75%). On 04/24/2025 he underwent right superficial femoral
artery to anterior tibial artery bypass using ipsilateral nonreversed great saphenous vein, as well as balloon angioplasty of both the right DP + AT arteries. OM 04/26/2025 patient had witnessed right facial droop and expressive aphasia prompting a
stroke alert. Head CT showed no acute intracranial abnormality. CTA of head and neck demonstrated approximately 65% left carotid stenosis and less than 50% right carotid stenosis. There was significant intracranial stenosis or dissection.
Vascular ultrasound 04/27 demonstrated mild calcified plaque in right ICA and left ICA of 50 to 69% stenosis. Patient underwent MRI of brain which demonstrated tiny 3.3 mm acute ischemic infarct in right frontal lobe as well as small chronic
periventricular white matter infarcts in both frontal lobes, chronic infarcts in left cerebral hemisphere. After discussion with neurology and vascular surgery it was felt that patient's stroke was unlikely secondary to carotid stenosis as it did
not clinically correlate with area of stroke. Cardiology being asked to see patient for concerns of arrhythmia and possible PARKER. Upon reviewing prior records patient did have brief postoperative atrial fibrillation following EVAR procedure in
June 2023. He follows with Dr. Malone for routine cardiology care and wore an outpatient monitor in August 2020 for which demonstrated frequent PACs representing 15% of QRS complexes and frequent runs of paroxysmal atrial tachycardia longest 43
seconds. Patient was not on anticoagulation as outpatient. Upon review of telemetry during this admission patient is noted to have runs of paroxysmal atrial tachycardia and brief runs of paroxysmal atrial fibrillation.
Progress Note - Airplane Technician
Subjective
Date of Service: April 29, 2025
No recurrent neurological events/symptoms.
Objective
Labs:
04/29/25 05:47
04/29/25 05:47
Labs
Hgb 9.4 g/dL (13.0-18.0) L 04/29/25 05:47
Hct 27.3 % (39.0-52.0) L 04/29/25 05:47
Plt Count 281 10^3/uL (130-400) D 04/29/25 05:47
PT 14.3 Sec (11.4-14.6) 04/25/25 13:22
INR 1.08 04/25/25 13:22
APTT Cancelled 04/26/25 20:45
Sodium 131 mmol/L (135-145) L 04/29/25 05:47
Potassium 4.5 mmol/L (3.5-5.1) 04/29/25 05:47
BUN 36 mg/dl (9-20) H 04/29/25 05:47
Creatinine 2.5 mg/dL (0.7-1.3) H 04/29/25 05:47
Glucose 101 mg/dl (70-99) H 04/29/25 05:47
Vital Signs and I&O:
Vital Signs
Temp Pulse Resp BP Pulse Ox
97.7 F 73 16 123/77 97
04/29/25 07:22 04/29/25 08:19 04/29/25 07:22 04/29/25 08:19 04/29/25 07:22
Vital Signs
Temp Pulse Resp BP Pulse Ox
97.7 F 73 16 123/77 97
04/29/25 07:22 04/29/25 08:19 04/29/25 07:22 04/29/25 08:19 04/29/25 07:22
Intake & Output
04/27/25 04/28/25 04/29/25 04/30/25
06:59 06:59 06:59 06:59
Intake Total 176 / 176 800 / 800 1200 / 1200
Output Total 2265 / 2465 1685 / 1685 1605 / 1605
Balance -2089 / -2289 -885 / -885 -405 / -405
Physical Exam
Physical Exam
General: No acute distress
Heart: SR on tele
Lungs: Nonlabored, on RA
--- NOTE | 2025-04-29 11:09 | W.CON.NEPH ---
Consultation
-
Date/Time Consultation Requested: 04/29/2025 5:11 AM
Date/Time Consultation Performed: 04/29/2025 11:00 AM
Requesting Provider: Dr. Keane
Performing Provider: Dr. Wright
Reason for Consultation: GLORIA
Medical History
-
Chief Complaint: Acute kidney injury
History of Present Illness:
The patient is an 85-year-old male with a past medical history of hypertension maintained on losartan and atenolol. He has a history of chronic kidney disease as noted by a creatinine of 1.3 as of 09/12/23. He has a past medical history significant
for hypertension, hyperlipidemia, AAA, history of non-Hodgkin's lymphoma and prostate cancer, peripheral artery disease status post EVAR and known popliteal aneurysm with previous recommended repair on the right presents from vascular clinic with
thrombosed right popliteal artery aneurysm. It is thought that this happened about 2 to 3 months ago she began having symptoms in his right foot at that time. He is having critical limb ischemia symptoms in his right foot at this time. It was
recommended that he be brought to the emergency department for expedited workup and treatment. Electrolytes were all stable. BUN/creatinine were elevated at 32 and 2.2 respectively. Unknown recent baseline platelet. 1.3 in 2022. The creatinine
has now escalated to 2.5 and Nephrology was consulted for GLORIA.
Past Medical History
Prostate cancer
Hypertension
Hyperlipidemia
AAA
Non-Hodgkin's lymphoma
Splenectomy
Vasectomy
Herniorrhaphy
EVAR
HRS, aorta surgery
Biopsy of AAA
Social History
Tobacco: Non-Smoker
Alcohol: Chronic Alcoholic
Personal:
Living: With Family
Family History
Family History: Not Pertinent
Allergies / Home Medications
Allergy/AdvReac Type Severity Reaction Status Date / Time
No Known Allergies Allergy Verified 04/20/25 14:58
�Medication �Instructions �Recorded �Confirmed �Type
colestipol 1 gram tablet 1 g PO BID High Cholesterol 07/03/23 04/20/25 History
losartan 50 mg tablet 50 mg PO DAILY Blood Pressure 07/03/23 04/20/25 History
omeprazole 20 mg tablet,delayed 20 mg PO NOON Gastrointestinal 07/03/23 04/20/25 History
release Issue
zinc-magnesium aspart-vit B6 10 1 cap PO DAILY Supplement 07/03/23 04/20/25 History
mg-150 mg-3.83 mg capsule
omega 6-qvl-lub-fish oil 1,200 mg 1 cap PO DAILY Supplement ##0 09/06/23 04/20/25 History
(144 mg-216 mg) capsule (Fish Oil)
acetaminophen 500 mg tablet 1,000 mg PO Q6HPRN PRN mild pain 09/11/23 04/20/25 History
aspirin 81 mg tablet,delayed 81 mg PO HS Blood Clot 04/20/25 04/20/25 History
release Prevention/Tx
atenolol 25 mg tablet 25 mg PO DAILY Blood Pressure 04/20/25 04/20/25 History
Review of Systems
-
History Source: Patient
All other systems: Negative unless noted
Physical Exam
Vital Signs
Vital Signs
Temp Pulse Resp BP Pulse Ox
97.7 F 73 16 123/77 97
04/29/25 07:22 04/29/25 08:19 04/29/25 07:22 04/29/25 08:19 04/29/25 07:22
Lab Results
04/29/25 05:47
04/29/25 05:47
WBC 9.1 10^3/uL (4.8-10.8) 04/29/25 05:47
RBC 2.92 10^6/uL (4.70-6.10) L 04/29/25 05:47
Hgb 9.4 g/dL (13.0-18.0) L 04/29/25 05:47
Hct 27.3 % (39.0-52.0) L 04/29/25 05:47
Plt Count 281 10^3/uL (130-400) D 04/29/25 05:47
Sodium 131 mmol/L (135-145) L 04/29/25 05:47
Potassium 4.5 mmol/L (3.5-5.1) 04/29/25 05:47
Chloride 105 mmol/L (98-107) 04/29/25 05:47
Carbon Dioxide 21 mmol/L (22-30) L 04/29/25 05:47
BUN 36 mg/dl (9-20) H 04/29/25 05:47
Creatinine 2.5 mg/dL (0.7-1.3) H 04/29/25 05:47
eGFR 24.87 04/29/25 05:47
Glucose 101 mg/dl (70-99) H 04/29/25 05:47
Calcium 9.2 mg/dl (8.4-10.2) 04/29/25 05:47
Albumin 3.6 g/dl (3.5-5.0) 04/29/25 05:47
Physical Exam
General: AOx3, Nontoxic , NAD
HEENT: PERRL, EOMI, Anicteric, Conjunctivae Clear, Ear/Nose Intact, Hearing Normal, Oropharynx Clear/Moist, Dentition Intact, Facial Symmetry, Neck Supple, Neck: Trachea Midline, No JVD and No Thyromegaly, no Bruits
Respiratory: Clear to auscultation bilaterally with normal lung exersion
Cardiac: S1/S2 and Regular Rate/Rhythm
Breast: Deferred by me
Abdomen: Soft, Nontender, Nondistended, Normal Bowel Sounds and No Hepatosplenomegaly
Rectal: Deferred by Provider
Genito-urinary: No Costovertebral Tenderness
Extremities: No Clubbing, No Cyanosis and No Edema
Skin: No Rash or open lesions
Neuro: Nonfocal/Grossly Intact, CN II-XII (Intact) and Strength (Musculoskeletal exam 5 out of 5 both upper and lower extremities)
Hematologic/Lymphatic: No Cervical Lymphadenopathy, No Submandibular Lymphadenopathy and No Supraclavicular Lymphadenopathy
Psych: Mood/afflect pleasant, Insight/judgement good and Appropriate
Vascular: plus 1 pedal and radial pulses
Data Reviewed
-
CT Scan: Report Reviewed by me
Labs: Labs Reviewed by me (BMP CBC urinalysis)
Old Records: Reviewed (Reviewed old EMR from September 2023 creatinine 1.3)
Assessment/Plan
-
Impression:
GLORIA
CKD (1.3)
History of aortic endograft
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
Peripheral arterial disease, AAA s/p repair history of popliteal aneurysm
S/P RLE vascular bypass for right popliteal aneurysm with occlusion from thrombosis. (s/p RLE superficial Fem-Ant Tib bypass) 04/24/25
Metabolic Acidosis
Right lower extremity hematoma postoperatively
HTN
PVD
Right RANDAL by CTA (High-grade stenosis near the origin of the right renal artery, greater than 75%.)
History of prostate cancer
History of non-Hodgkin's lymphoma
Acute right MCA territory infarct (superior right frontal lobe): 04/26/[address] Right popliteal arterial aneurysm measures 2.3 cm in diameter. There is occlusion of the right distal SFA and popliteal artery, including thrombosed aneurysm of the right popliteal artery. Occlusion of the proximal right anterior tibial artery,
tibioperoneal trunk, and proximal posterior tibial and peroneal arteries. Reconstitution of the right proximal anterior tibial, posterior tibial, and peroneal arteries, although the distal aspect below the mid calf level is not well evaluated due to
contrast bolus timing.
2. 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 Left popliteal aneurysm does not appear to be occluded, however evaluation is slightly suboptimal due to contrast bolus timing.
3. 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
4. 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
Plan:
GLORIA/right RANDAL:
-likely due to contrast exposures during vacular procedures and CT angiogram times two
-check UA, noted bilateral cortical echotexture changes on CT of kidneys
-ARB held, hemodynamically stable (in setting of Right RANDAL): No acute indication for intervention
- Remains on sodium carbonate for metabolic acidosis
- Placed fluid restriction for evolving hyponatremia
- Currently nonoliguric but will check postvoid bladder scan to assess for obstructive component
- No acute dialysis required
--- NOTE | 2025-04-29 13:00 | PTCARENOTE ---
This RN called to room by PT/OT after ambulation in halls w/RW and PT. he stated he felt funny in the stomach-could not elaborate more. pt assisted to recliner chair. appeared pale. bp in chair 85/64, HR 105-unable to obtain pox. placed 2L NC, pt
able to state name, , place and month. returned pt to bed by sliding from chair-supine BP 120/70, HR 76. color returned to face and pt more conversant. pt offering no further c/o. hospital team made aware. pt currently eating lunch. care
ongoing.
[2025-04-29] MEDS: PROTONIX 40 MG PO (13:10)
[2025-04-29 16:22] LABS: Urine Albumin 2+ (Neg - Trace); Urine Bilirubin Negative (Negative); Urine Character Clear (Clear); Urine Color Yellow; Urine Glucose Negative (Negative); Urine Ketone Negative (Negative); Urine Leukocyte Negative (Negative); Urine Nitrite Negative (Negative); Urine Occult Blood 1+ (Negative); Urine Urobilinogen Negative (Neg - 1+)
[2025-04-29 16:31] LABS: Urine Bacteria Few (Negative); Urine Squamous Cell 0-2 /LPF (Few); Urine White Cell 0-2 /HPF (0-5)
--- NOTE | 2025-04-29 17:17 | CM ---
Patient seen at bedside with patient granddaughter and physicians on . Patient states that he is eager to go home. Patient for discharge home with referral requested to [facility]. CM will continue to follow for discharge planning needs.
Plan; home with VN; referral to [facility] pending
[2025-04-30 03:10] VITALS: BP 141/70
[2025-04-30 06:14] LABS: Hematocrit 27.2 % (39.0-52.0); Hemoglobin 9.3 g/dL (13.0-18.0); Mean Corp Hgb Conc. 34.2 g/dL (33.0-37.0); Mean Corpuscular Hgb 32.2 pg (27.0-31.0); Mean Corpuscular Volume 94.1 fL (80.0-94.0); Mean Platelet Volume 11.6 fL (7.4-10.4); Platelet Count 309 10^3/uL (130-400); Red Blood Cell Count 2.89 10^6/uL (4.70-6.10); Red Cell Dist. Width 14.7 % (11.5-14.5); White Blood Cell Count 9.9 10^3/uL (4.8-10.8)
[2025-04-30 06:26] LABS: ALT (SGPT) 23 U/L (0-50); AST (SGOT) 22 U/L (17-59); Albumin 3.5 g/dl (3.5-5.0); Alkaline Phosphatase 83 U/L (38-126); Blood Urea Nitrogen 32 mg/dl (9-20); Calcium 9.2 mg/dl (8.4-10.2); Carbon Dioxide 21 mmol/L (22-30); Chloride 105 mmol/L (98-107); Estimated Creatinine Clearance 21 ml/min; Glucose 97 mg/dl (70-99); Potassium 4.5 mmol/L (3.5-5.1); Sodium 132 mmol/L (135-145); Total Bilirubin 0.8 mg/dl (0.2-1.3); Total Protein 5.7 g/dl (6.3-8.2); eGFR 26.12
[2025-04-30 07:16] VITALS: BP 137/85
--- NOTE | 2025-04-30 07:27 | W.PN.VS ---
Addendum entered and electronically signed by Anirudh Locke MD 04/30/25 11:35:
Seen and examined with MARICEL Snyder. Agree with findings as noted below. Agree with plan as discussed and noted below.
Original Note:
Today's Communication / Plan
-
Patient seen and examined at bedside with Dr. Anirudh Locke, below plan reviewed with attending.
Assessment/Plan
-
s/p bypass
- Oral anticoagulation initiated, hemoglobin remained stable
- Continue PT/OT
-Continue neurovascular checks
- Appreciate design consultant recommendations
- MYRON drain removed
- Follow up placed in discharge instructions
- We will sign off call with questions or concerns
Subjective Data
-
Date of Service: April 30, 2025
Patient seen and examined at bedside, offers no complaints. Reports well managed post operative pain, and continued improved ambulation and movement now that postoperative pain is minimal. He is eager for next steps towards discharge.
Objective Data
-
Vital Signs
Temp Pulse Resp BP Pulse Ox
97.8 F 58 16 141/70 100
04/30/25 03:10 04/30/25 03:10 04/30/25 03:10 04/30/25 03:10 04/30/25 03:10
Intake and Output
04/29/25 04/30/25 05/01/25
06:59 06:59 06:59
Intake Total 1200 / 1200 1260 / 1260
Output Total 1605 / 1605 1430 / 1430
Balance -405 / -405 -170 / -170
Intake:
Oral fluids 1200 / 1200 1260 / 1260
Output:
Drain Output (Total) 105 / 105 5 / 5
Right Middle Leg Bobby-Heath 105 / 105 5 / 5
Urine, Voided 1500 / 1500 1425 / 1425
Other:
Number of approximated MODERATE 3
amounts of urine
Lab Results
04/30/25 05:33
04/30/25 05:33
Calcium 9.2 mg/dl (8.4-10.2) 04/30/25 05:33
Magnesium 1.9 mg/dl (1.6-2.3) 04/28/25 03:40
Total Bilirubin 0.8 mg/dl (0.2-1.3) 04/30/25 05:33
AST 22 U/L (17-59) 04/30/25 05:33
ALT 23 U/L (0-50) 04/30/25 05:33
Alkaline Phosphatase 83 U/L (38-126) 04/30/25 05:33
Total Protein 5.7 g/dl (6.3-8.2) L 04/30/25 05:33
Albumin 3.5 g/dl (3.5-5.0) 04/30/25 05:33
Physical Exam
-
No apparent distress, resting in bed comfortably
No tachycardia
No dyspnea
Right lower extremity staple site CDI and well approximated, no signs of bleeding, calf soft, MYRON drain with minimal serosanguineous fluid and removed
+ graft pulse
+ DP signal
Foot warm
--- NOTE | 2025-04-30 08:06 | W.PN.HOSP.TC ---
Addendum entered and electronically signed by Harriet Keane MD 04/30/25 18:58:
I saw and evaluated the patient independently. I reviewed the resident�s note and agree with findings and plan as documented by Dr. Payne.
GENERAL: well developed, well nourished, male in no apparent distress
HEENT: NC/AT
HEART: regular rate and rhythm, +S1, +S2
LUNGS : clear to auscultation bilaterally
ABDOM: soft, nontender, nondistended, + bowel sounds
EXT: no cyanosis, clubbing, or edema--drain removed from right leg--bruising noted
NEUROLOGIC: grossly intact but have concerns over memory/cognition
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
abnormality--CTA head/neck(04/26/2025) 65% L ICA and <50% R ICA stenoses--Carotid ultrasound left�large volume soft plaque in the proximal internal carotid artery, 50-69% ICA stenosis--Right less than 50% ICA stenosis--Echo with preserved EF, stage
1 diastolic dysfunction--valvular disease also noted--apprec neuro/vascular--cont asa, thiamine-- endarterectomy on left carotid cancelled since stroke on right side and carotid stenosis left side (does not match clinically)--cards consulted for PARKER
but also no need as cards saw afib on his monitor and recommend anticoagulation regardless--vascular and neuro in agreement with plan
Peripheral arterial disease/Thrombosed right popliteal artery--04/24 s/p femoral to anterior tibial bypass--Heparin drip discontinued after TIA symptoms--cont asa--apprec vascular--further rec as per them
Anemia--Likely secondary to blood loss or anemia of chronic disease--Developed some bleeding from the RLE incisional site with signs of hematoma as of morning 04/25--Bleeding resolved, no signs of worsening hematoma, hemoglobin 9.4 down from 13
earlier in stay--Continue to trend CBC, hemoglobin goal >7
Metabolic acidosis--Normal anion gap metabolic acidosis�anion gap 6--Likely ischemic versus renal--DC'd bicarb drip, continue oral bicarb
GLORIA on CKD stage 3a--Creatinine�2.5 (baseline ~ 2.0)--CT evidence of high-grade stenosis of right renal artery might be a contributing factor--Hold losartan--apprec renal consult--Continue oral bicarb--cleared for d/c by renal
Essential hypertension--Atenolol on hold, telemetry monitoring showed prolonged QT�501--EKG�sinus rhythm with PACs--Hold losartan
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
DVT proph�subcu heparin
code status-- DNR
disposition--PT/OT--recommending SNF, pt refusing--will d/c home with VN, PT/OT
Original Note:
Today's Communication/Plan
-
Discharge to home with home care
Assessment / Plan
Assessment / Plan
Assessment / Plan
Impression
85-year-old male admitted for management of thrombosed right popliteal artery.
Plan
# GLORIA/CKD stage IV
#Metabolic acidosis
Normal anion gap metabolic acidosis
Creatinine�2.[address] evidence of high-grade stenosis of right renal artery
Contrast exposures during vascular surgery/CT angiogram
Nephrology consulted
continue oral bicarb
Postvoid bladder scan- 140 ml
No indication for acute dialysis
Hold losartan
Monitor BMP
#Hyponatremia
Fluid restriction
# Acute CVA
Likely due to ischemic infarct in superior right frontal lobe versus TIA from left ICA stenosis versus embolic source.
No further plans for carotid endarterectomy at this point as per vascular.
Patient started on Eliquis 2.5 mg twice daily, continue
Continue aspirin 81 mg
Check SPEP
Outpatient follow-up with neurology after discharge
#Paroxysmal A-fib
Telemetry review with PACs and runs of paroxysmal A-fib
History of paroxysmal A-fib in June 2023 (at the time of EVAR)
MRI with bihemispheric strokes
[id number] score- 6
Continue Eliquis 2.5 mg twice daily
Continue Toprol 12.5 mg twice daily
Follow-up with cardiology in 3 to 4 weeks
#Peripheral arterial disease
#Thrombosed right popliteal artery
POD #5, s/p femoral to anterior tibial bypass
Continue aspirin 81 mg
Palpable pulses, good lower extremity perfusion postoperatively
Continue vascular checks
Follow-up with vascular surgery in 2 to 3 weeks
#Anemia
Likely secondary to blood loss or anemia of chronic disease
Developed some bleeding from the RLE incisional site with signs of hematoma as of morning 04/25
Bleeding resolved, no signs of worsening hematoma, hemoglobin 9.1
Continue to trend CBC, hemoglobin goal >7
Will transfuse if less than 7
# Essential hypertension
Continue Toprol 12.5 mg
#ASCVD
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
#DVT prophylaxis�Eliquis
Low-cholesterol diet
CODE STATUS�DNR
Anticipated Discharge: Today
Subjective/Interval History
-
Date of Service: April 30, 2025
Patient does not report any acute overnight issues. Mild pain when they took out the drain.
Objective Data
-
Labs:
Laboratory Results
04/30/25
05:33
WBC 9.9
Hgb 9.3 L
Hct 27.2 L
Plt Count 309
Sodium 132 L
Potassium 4.5
Chloride 105
Carbon Dioxide 21 L
BUN 32 H
Creatinine 2.4 H
Glucose 97
Calcium 9.2
Total Bilirubin 0.8
AST 22
ALT 23
Alkaline Phosphatase 83
Vital Signs:
Vital Signs
Temp Pulse Resp BP Pulse Ox
98.0 F 67 18 137/85 98
04/30/25 07:16 04/30/25 07:16 04/30/25 07:16 04/30/25 07:16 04/30/25 07:16
I&O
04/29/25 04/30/25 05/01/25
06:59 06:59 06:59
Intake Total 1200 / 1200 1260 / 1260
Output Total 1605 / 1605 1430 / 1430
Balance -405 / -405 -170 / -170
Review of Systems
-
All other systems: Reviewed and negative (Except as mentioned above)
Physical Exam
-
General: Well Developed and Well Nourished
HEENT: Normocephalic and Atraumatic
Respiratory: Clear to Auscultation
Cardiac: S1/S2 and Irregular Rhythm
GI: Soft, Nontender, Nondistended and Normal Bowel Sounds
Musculoskeletal: Other (Surgical incision with ramiro on the right lateral aspect of the calf and saphenous vein graft site. dorsalis pedis pulse +, neurovasculature intact))
Skin: Warm and Dry
Neuro: Awake, Alert, Oriented, AO x 3 and Nonfocal/Grossly Intact
Psych: Calm
[2025-04-30] MEDS: ASPIR LOW (ENTERIC COATED) 81 MG PO (08:41)
[2025-04-30] MEDS: ELIQUIS 2.5 MG PO (08:42)
[2025-04-30] MEDS: TOPROL XL 12.5 MG PO (08:42)
[2025-04-30] MEDS: SODIUM BICARBONATE 650 MG PO (08:42)
--- NOTE | 2025-04-30 10:21 | W.PN.NEPH.PH ---
Today's Communication / Plan
-
Stable for discharge but with follow-up BMP early next week and follow-up with his outpatient environmental lawyer who was not within the [facility] system
Assessment/Plan
-
Impression:
GLORIA
CKD (1.3)
History of aortic endograft
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
Peripheral arterial disease, AAA s/p repair history of popliteal aneurysm
S/P RLE vascular bypass for right popliteal aneurysm with occlusion from thrombosis. (s/p RLE superficial Fem-Ant Tib bypass) 04/24/25
Metabolic Acidosis
Right lower extremity hematoma postoperatively
HTN
PVD
Right RANDAL by CTA (High-grade stenosis near the origin of the right renal artery, greater than 75%.)
History of prostate cancer
History of non-Hodgkin's lymphoma
Acute right MCA territory infarct (superior right frontal lobe): 04/26/25
PAF
CT Right popliteal arterial aneurysm measures 2.3 cm in diameter. There is occlusion of the right distal SFA and popliteal artery, including thrombosed aneurysm of the right popliteal artery. Occlusion of the proximal right anterior tibial artery,
tibioperoneal trunk, and proximal posterior tibial and peroneal arteries. Reconstitution of the right proximal anterior tibial, posterior tibial, and peroneal arteries, although the distal aspect below the mid calf level is not well evaluated due to
contrast bolus timing.
2. 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 Left popliteal aneurysm does not appear to be occluded, however evaluation is slightly suboptimal due to contrast bolus timing.
3. 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
4. 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
Plan:
GLORIA/right RANDAL:
-Creatinine down to 2.4 and grossly nonoliguric
-Creatinine on presentation was 2.2 so I think patient is stable for discharge with follow-up BMP early next week and close follow-up with his outpatient environmental lawyer
-likely due to contrast exposures during vacular procedures and CT angiogram times two
-checked UA, noted bilateral cortical echotexture changes on CT of kidneys
-ARB held, hemodynamically stable (in setting of Right RANDAL): No acute indication for intervention
- Remains on sodium carbonate for metabolic acidosis
- Placed fluid restriction for evolving hyponatremia
- Currently nonoliguric but will check postvoid bladder scan to assess for obstructive component
- No acute dialysis required
-
-
Date of Service: April 30, 2025
CC / HPI / ROS
-
Chief Complaint:
GLORIA
History of Present Illness:
Creatinine down to 2.4
Hemodynamically stable
Review of Systems:
Nonoliguric
No chest pain or shortness of breath
Labs
-
Labs:
WBC 9.9 10^3/uL (4.8-10.8) 04/30/25 05:33
RBC 2.89 10^6/uL (4.70-6.10) L 04/30/25 05:33
Hgb 9.3 g/dL (13.0-18.0) L 04/30/25 05:33
Hct 27.2 % (39.0-52.0) L 04/30/25 05:33
Plt Count 309 10^3/uL (130-400) 04/30/25 05:33
Sodium 132 mmol/L (135-145) L 04/30/25 05:33
Potassium 4.5 mmol/L (3.5-5.1) 04/30/25 05:33
Chloride 105 mmol/L (98-107) 04/30/25 05:33
Carbon Dioxide 21 mmol/L (22-30) L 04/30/25 05:33
BUN 32 mg/dl (9-20) H 04/30/25 05:33
Creatinine 2.4 mg/dL (0.7-1.3) H 04/30/25 05:33
eGFR 26.12 04/30/25 05:33
Glucose 97 mg/dl (70-99) 04/30/25 05:33
Calcium 9.2 mg/dl (8.4-10.2) 04/30/25 05:33
Albumin 3.5 g/dl (3.5-5.0) 04/30/25 05:33
Physical Exam
-
Vital Signs:
Vital Signs
Temp Pulse Resp BP Pulse Ox
98.0 F 67 18 137/85 98
04/30/25 07:16 04/30/25 07:16 04/30/25 07:16 04/30/25 08:42 04/30/25 07:16
Cardiovascular:: Regular rate and rhythm
Respiratory:: Bilateral: CTA
Lung Excursion:: Normal
Abdomen:: Nontender and Soft
Bowel Sounds:: Normal
Extremity Edema:: None: Bilateral:
Cole Catheter: No
[2025-04-30 11:08] VITALS: BP 155/74
[2025-04-30] MEDS: PROTONIX 40 MG PO (12:56)
--- NOTE | 2025-04-30 13:55 | CM ---
Patient seen at bedside with physician on . Patient completed IMM and form placed on chart. Patient granddaughter to transport patient home. CM confirmed [facility] to follow and accepted patient for follow up. CM will continue to follow for
discharge planning needs.
Plan; home with clara
[2025-04-30 14:53] VITALS: BP 150/75
== END 2025-04-30 15:27 | disposition home health service (06) | DRG 252 ==
LOC: 2 SOUTH 19:02
PROVIDERS: Internal Medicine; Nurse Practitioner Acute Care; Nurse Practitioner Primary Care; Physician Assistant; Registered Nurse; Student in an Organized Health Care Education/Training Program; Surgery; Surgery Vascular Surgery; ADMITTING PHYSICIAN Internal Medicine; ATTENDING PHYSICIAN Internal Medicine; CONSULT PHYSICIAN Internal Medicine Critical Care Medicine; CONSULT PHYSICIAN Nuclear Medicine Nuclear Cardiology; CONSULT PHYSICIAN Specialist; EMERGENCY PHYSICIAN Emergency Medicine; FAMILY PHYSICIAN Family Medicine; OTHER PHYSICIAN Psychiatry & Neurology Neurology
PROC: 041K09Q Bypass Right Femoral Artery to Lower Extremity Artery with Autologous Venous Tissue, Open Approach (ICD-10-PCS; 2025-04-24)
PROC: 06BQ0ZZ Excision of Left Saphenous Vein, Open Approach (ICD-10-PCS; 2025-04-24)
PROC: 047V3ZZ Dilation of Right Foot Artery, Percutaneous Approach (ICD-10-PCS; 2025-04-24)
PROC: 047P3ZZ Dilation of Right Anterior Tibial Artery, Percutaneous Approach (ICD-10-PCS; 2025-04-24)
PROC: B41F1ZZ Fluoroscopy of Right Lower Extremity Arteries using Low Osmolar Contrast (ICD-10-PCS; 2025-04-24)
DX: I74.3 Embolism and thrombosis of arteries of the lower extremities (principal); I63.542 Cerebral infarction due to unspecified occlusion or stenosis of left cerebellar artery; D62 Acute posthemorrhagic anemia; E87.20 Acidosis, unspecified; I77.4 Celiac artery compression syndrome; N17.9 Acute kidney failure, unspecified; R47.01 Aphasia; M50.01 Cervical disc disorder with myelopathy, high cervical region; I47.19 Other supraventricular tachycardia; L76.32 Postprocedural hematoma of skin and subcutaneous tissue following other procedure; E87.1 Hypo-osmolality and hyponatremia; R20.2 Paresthesia of skin; I70.221 Atherosclerosis of native arteries of extremities with rest pain, right leg; I12.9 Hypertensive chronic kidney disease with stage 1 through stage 4 chronic kidney disease, or unspecified chronic kidney disease; N18.31 Chronic kidney disease, stage 3a; E78.00 Pure hypercholesterolemia, unspecified; F10.10 Alcohol abuse, uncomplicated; J32.0 Chronic maxillary sinusitis; R59.0 Localized enlarged lymph nodes; D63.8 Anemia in other chronic diseases classified elsewhere; M48.02 Spinal stenosis, cervical region; I70.0 Atherosclerosis of aorta; R25.1 Tremor, unspecified; R29.810 Facial weakness; I65.23 Occlusion and stenosis of bilateral carotid arteries; R47.81 Slurred speech; D72.829 Elevated white blood cell count, unspecified; I48.0 Paroxysmal atrial fibrillation; Y83.8 Other surgical procedures as the cause of abnormal reaction of the patient, or of later complication, without mention of misadventure at the time of the procedure; Y71.3 Surgical instruments, materials and cardiovascular devices (including sutures) associated with adverse incidents; Y92.239 Unspecified place in hospital as the place of occurrence of the external cause; Z66 Do not resuscitate; Z86.79 Personal history of other diseases of the circulatory system; Z85.46 Personal history of malignant neoplasm of prostate; Z85.72 Personal history of non-Hodgkin lymphomas; Z79.82 Long term (current) use of aspirin; Z82.49 Family history of ischemic heart disease and other diseases of the circulatory system; Z63.4 Disappearance and death of family member; Z92.3 Personal history of irradiation; Z90.81 Acquired absence of spleen
CPT/HCPCS: 0042T; 35585; 37228; 37232; 70450; 70496; 70498; 70551; 71045; 75635; 80048; 80053; 80061; 81003; 81015; 82550; 82607; 82728; 82746; 83540; 83550; 83735; 84155; 84165; 84439; 84443; 85014; 85018; 85025; 85027; 85610; 85730; 86850; 86900; 86901; 92523; 93005; 93306; 93880; 93970; 97116; 97163; 97167; 97530; 97535; 99291; C1725; C1769; C1894; Q9967